=== PATIENT | male | born 1940 | race Caucasian/White ===

== ENCOUNTER → 2019-12-17 10:44 | Outpatient (BNVA) | payer MEDICARE, SELFPAY | PROVIDERS: Family Provider Nurse Practitioner; PCP Nurse Practitioner; Visit Provider Nurse Practitioner | DX: E11.9 Type 2 diabetes mellitus without complications (principal); E78.5 Hyperlipidemia, unspecified; E03.8 Other specified hypothyroidism | CPT/HCPCS: 80053; 80061; 83036; 84443; 85025 ==

== ENCOUNTER → 2019-12-20 09:42 | Outpatient (BNVA) | payer MEDICARE, SELFPAY | PROVIDERS: Family Provider Nurse Practitioner; PCP Nurse Practitioner; Visit Provider Nurse Practitioner Family | DX: J44.1 Chronic obstructive pulmonary disease with (acute) exacerbation (principal); I25.10 Atherosclerotic heart disease of native coronary artery without angina pectoris; E11.9 Type 2 diabetes mellitus without complications; M10.9 Gout, unspecified; E78.5 Hyperlipidemia, unspecified; I10 Essential (primary) hypertension; E03.8 Other specified hypothyroidism; K21.9 Gastro-esophageal reflux disease without esophagitis; J44.9 Chronic obstructive pulmonary disease, unspecified | CPT/HCPCS: 71046 ==

== ENCOUNTER → 2020-03-21 09:10 | Outpatient (BNVA) | payer MEDICARE, SELFPAY | PROVIDERS: Family Provider Nurse Practitioner; PCP Nurse Practitioner; Visit Provider Nurse Practitioner | DX: E78.5 Hyperlipidemia, unspecified (principal); E11.9 Type 2 diabetes mellitus without complications; I10 Essential (primary) hypertension; E03.8 Other specified hypothyroidism | CPT/HCPCS: 80053; 80061; 83036; 84443 ==

== ENCOUNTER → 2020-06-16 08:47 | Outpatient (BNVA) | payer MEDICARE, SELFPAY | PROVIDERS: Family Provider Nurse Practitioner; PCP Nurse Practitioner; Visit Provider Nurse Practitioner | DX: E11.59 Type 2 diabetes mellitus with other circulatory complications (principal); E03.8 Other specified hypothyroidism | CPT/HCPCS: 80053; 80061; 83036; 84443 ==

== ENCOUNTER → 2020-06-30 08:36 | Outpatient (BNVA) | payer MEDICARE, SELFPAY | PROVIDERS: Family Provider Nurse Practitioner; PCP Nurse Practitioner; Visit Provider Nurse Practitioner | DX: E87.1 Hypo-osmolality and hyponatremia (principal) | CPT/HCPCS: 80048 ==

== ENCOUNTER → 2020-07-07 08:30 | Outpatient (BNVA) | payer MEDICARE, SELFPAY | PROVIDERS: Family Provider Nurse Practitioner; PCP Nurse Practitioner; Visit Provider Nurse Practitioner | DX: E87.1 Hypo-osmolality and hyponatremia (principal) | CPT/HCPCS: 80048 ==

== ENCOUNTER → 2020-09-11 09:20 | Outpatient (BNVA) | payer MEDICARE, SELFPAY | PROVIDERS: Family Provider Nurse Practitioner; PCP Nurse Practitioner; Visit Provider Nurse Practitioner | DX: E11.59 Type 2 diabetes mellitus with other circulatory complications (principal); J43.9 Emphysema, unspecified; I10 Essential (primary) hypertension; E03.8 Other specified hypothyroidism | CPT/HCPCS: 80053; 83036 ==

== ENCOUNTER → 2020-12-05 09:09 | Outpatient (BNVA) | payer MEDICARE, SELFPAY | PROVIDERS: Family Provider Nurse Practitioner; PCP Nurse Practitioner; Visit Provider Nurse Practitioner | DX: E11.59 Type 2 diabetes mellitus with other circulatory complications (principal); E78.5 Hyperlipidemia, unspecified; E03.8 Other specified hypothyroidism; I10 Essential (primary) hypertension; J43.9 Emphysema, unspecified | CPT/HCPCS: 80053; 80061; 83036; 84443; 85025 ==

== ENCOUNTER → 2020-12-10 11:26 | Outpatient (BNVA) | payer MEDICARE, SELFPAY | PROVIDERS: Family Provider Nurse Practitioner; PCP Nurse Practitioner; Visit Provider Nurse Practitioner | DX: Z20.828 Contact with and (suspected) exposure to other viral communicable diseases (principal); E11.9 Type 2 diabetes mellitus without complications; M10.9 Gout, unspecified; E78.5 Hyperlipidemia, unspecified; I25.10 Atherosclerotic heart disease of native coronary artery without angina pectoris; K21.9 Gastro-esophageal reflux disease without esophagitis; E03.8 Other specified hypothyroidism; I10 Essential (primary) hypertension; J43.9 Emphysema, unspecified; E87.1 Hypo-osmolality and hyponatremia | CPT/HCPCS: 87635 ==

== ENCOUNTER → 2021-03-04 08:35 | Outpatient (BNVA) | payer MEDICARE, SELFPAY | PROVIDERS: Family Provider Nurse Practitioner; PCP Nurse Practitioner; Visit Provider Nurse Practitioner | DX: E11.65 Type 2 diabetes mellitus with hyperglycemia (principal); I10 Essential (primary) hypertension; E03.8 Other specified hypothyroidism; J43.9 Emphysema, unspecified | CPT/HCPCS: 80053; 80061; 83036; 84443; 85025 ==

== ENCOUNTER → 2021-03-05 09:43 | Outpatient (BNVA) | payer MEDICARE, SELFPAY | PROVIDERS: Family Provider Nurse Practitioner; PCP Nurse Practitioner; Visit Provider Nurse Practitioner | DX: J43.9 Emphysema, unspecified (principal); E11.65 Type 2 diabetes mellitus with hyperglycemia; D64.9 Anemia, unspecified; E53.8 Deficiency of other specified B group vitamins; E55.9 Vitamin D deficiency, unspecified; M25.511 Pain in right shoulder; M25.512 Pain in left shoulder; M1A.9XX0 Chronic gout, unspecified, without tophus (tophi); E78.5 Hyperlipidemia, unspecified; I25.10 Atherosclerotic heart disease of native coronary artery without angina pectoris; K21.9 Gastro-esophageal reflux disease without esophagitis; I10 Essential (primary) hypertension; E87.1 Hypo-osmolality and hyponatremia; E11.9 Type 2 diabetes mellitus without complications; E03.8 Other specified hypothyroidism; M71.9 Bursopathy, unspecified | CPT/HCPCS: 73030; 82306; 82607; 83540 ==

== ENCOUNTER → 2021-06-12 08:34 | Outpatient (BNVA) | payer MEDICARE, SELFPAY | PROVIDERS: Family Provider Nurse Practitioner; PCP Nurse Practitioner; Visit Provider Nurse Practitioner | DX: J43.9 Emphysema, unspecified (principal); E11.65 Type 2 diabetes mellitus with hyperglycemia; I10 Essential (primary) hypertension; E03.8 Other specified hypothyroidism; M1A.9XX0 Chronic gout, unspecified, without tophus (tophi); K21.9 Gastro-esophageal reflux disease without esophagitis; E87.1 Hypo-osmolality and hyponatremia; D64.9 Anemia, unspecified; I25.10 Atherosclerotic heart disease of native coronary artery without angina pectoris; E11.9 Type 2 diabetes mellitus without complications; E78.5 Hyperlipidemia, unspecified | CPT/HCPCS: 80053; 82306; 82607; 83036; 84443; 85025 ==

== ENCOUNTER → 2021-07-09 09:03 | Outpatient (BNVA) | payer MEDICARE, SELFPAY | PROVIDERS: Family Provider Nurse Practitioner; PCP Nurse Practitioner; Visit Provider Nurse Practitioner | DX: M54.5 Low back pain (principal); M25.552 Pain in left hip | CPT/HCPCS: 73502 ==

== ENCOUNTER → 2021-07-15 15:37 | Outpatient (BNVA) | payer MEDICARE, SELFPAY | PROVIDERS: Family Provider Nurse Practitioner; PCP Nurse Practitioner; Visit Provider Nurse Practitioner | DX: M54.5 Low back pain (principal) | CPT/HCPCS: 72100 ==

== ENCOUNTER → 2021-09-16 09:56 | Outpatient (BNVA) | payer MEDICARE, SELFPAY | PROVIDERS: Family Provider Nurse Practitioner; PCP Nurse Practitioner; Visit Provider Nurse Practitioner | DX: E11.65 Type 2 diabetes mellitus with hyperglycemia (principal); Z79.4 Long term (current) use of insulin; E61.1 Iron deficiency | CPT/HCPCS: 80053; 80061; 83036; 83550; 84443; 85025 ==

== ENCOUNTER → 2021-12-04 10:33 | Outpatient (BNVA) | payer MEDICARE, SELFPAY | PROVIDERS: Family Provider Nurse Practitioner; PCP Nurse Practitioner; Visit Provider Nurse Practitioner | DX: E11.65 Type 2 diabetes mellitus with hyperglycemia (principal); Z79.4 Long term (current) use of insulin | CPT/HCPCS: 80053; 83036; 85025 ==

== ENCOUNTER → 2022-01-25 13:25 | Outpatient (BNVA) | payer MEDICARE, SELFPAY | PROVIDERS: Family Provider Nurse Practitioner; PCP Nurse Practitioner; Referring Provider Nurse Practitioner; Visit Provider Urology | DX: N47.1 Phimosis (principal) | CPT/HCPCS: 81003 ==

== ENCOUNTER → 2022-03-25 10:08 | Outpatient (BNVA) | payer MEDICARE, SELFPAY | PROVIDERS: Family Provider Nurse Practitioner; PCP Nurse Practitioner; Visit Provider Nurse Practitioner | DX: E11.65 Type 2 diabetes mellitus with hyperglycemia (principal); Z79.4 Long term (current) use of insulin; J43.9 Emphysema, unspecified; M1A.9XX0 Chronic gout, unspecified, without tophus (tophi); E78.5 Hyperlipidemia, unspecified; I25.10 Atherosclerotic heart disease of native coronary artery without angina pectoris; K21.9 Gastro-esophageal reflux disease without esophagitis; E61.1 Iron deficiency; E03.8 Other specified hypothyroidism; I10 Essential (primary) hypertension | CPT/HCPCS: 80053; 80061; 81000; 82043; 83036 ==

== ENCOUNTER → 2022-04-16 08:49 | Outpatient (BNVA) | payer MEDICARE, SELFPAY | PROVIDERS: Family Provider Nurse Practitioner; PCP Nurse Practitioner; Visit Provider Nurse Practitioner | DX: J43.9 Emphysema, unspecified (principal); E11.65 Type 2 diabetes mellitus with hyperglycemia; Z79.4 Long term (current) use of insulin; I10 Essential (primary) hypertension | CPT/HCPCS: 85025 ==

== ENCOUNTER → 2022-06-14 08:21 | Outpatient (BNVA) | payer MEDICARE, SELFPAY | PROVIDERS: Family Provider Nurse Practitioner; PCP Nurse Practitioner; Visit Provider Nurse Practitioner | DX: E11.65 Type 2 diabetes mellitus with hyperglycemia (principal); E61.1 Iron deficiency; Z79.4 Long term (current) use of insulin; J43.9 Emphysema, unspecified; M1A.9XX0 Chronic gout, unspecified, without tophus (tophi); E78.5 Hyperlipidemia, unspecified; I25.10 Atherosclerotic heart disease of native coronary artery without angina pectoris; K21.9 Gastro-esophageal reflux disease without esophagitis; E03.8 Other specified hypothyroidism; I10 Essential (primary) hypertension; E87.1 Hypo-osmolality and hyponatremia | CPT/HCPCS: 80053; 80061; 83036; 83540; 84443 ==

== ENCOUNTER → 2022-09-27 11:31 | Outpatient (BNVA) | payer MEDICARE, SELFPAY | PROVIDERS: Family Provider Nurse Practitioner; PCP Nurse Practitioner; Visit Provider Nurse Practitioner | DX: E11.65 Type 2 diabetes mellitus with hyperglycemia (principal); Z79.4 Long term (current) use of insulin; J43.9 Emphysema, unspecified; M1A.9XX0 Chronic gout, unspecified, without tophus (tophi); E78.5 Hyperlipidemia, unspecified; I25.10 Atherosclerotic heart disease of native coronary artery without angina pectoris; K21.9 Gastro-esophageal reflux disease without esophagitis; E61.1 Iron deficiency; E03.8 Other specified hypothyroidism; I10 Essential (primary) hypertension; E87.1 Hypo-osmolality and hyponatremia | CPT/HCPCS: 80053; 83036 ==

== ENCOUNTER → 2022-12-24 14:22 | Outpatient (BNVA) | payer MEDICARE, SELFPAY | PROVIDERS: Family Provider Nurse Practitioner; PCP Nurse Practitioner; Visit Provider Nurse Practitioner Family | DX: R05.9 Cough, unspecified (principal); Z20.822 Contact with and (suspected) exposure to COVID-19 | CPT/HCPCS: 87400; 87426 ==

== ENCOUNTER 2022-12-29 11:32 | Inpatient (IN) | payer MEDICARE, SELFPAY ==
[2022-12-29] VITALS (13 sets, daily range): BP systolic 135–214; BP diastolic 55–98; PULSE 88–131; RESP 14–32; TEMP 36.8–37; O2SAT 92–95
--- NOTE | 2022-12-29 11:44 | XR_ITS ---
WS: [id number] PORTABLE CHEST HISTORY: sob COMPARISON: 12/20/2019 Increasing opacification and consolidation in the RIGHT lower lobe consistent with atelectasis and/or pneumonia. Additional bilateral granulomata. Normal pulmonary vasculature. No pleural effusion or pn eumothorax. Cardiac size: Normal. Mediastinum/Aorta: Mild atherosclerosis aorta. No osseous abnormality seen. XR/XR chest 1V portable [id number] IMPRESSION: RIGHT lower lobe increasing opacification. Consider atelectasis with developing pneumonia or pneumonitis.
--- NOTE | 2022-12-29 11:45 | ECG_ITS ---
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 Measurements Intervals [place] Rate: 118 P: 81 OK: 148 QRS: 62 QRSD: 72 T: 78 QT: 291 QTc: 409 Interpretive Statements SINUS TACHYCARDIA POSSIBLE LEFT ATRIAL ENLARGEMENT [-0.1mV P-WAVE IN V1/V2] EARLY REPOLARIZATION [ST ELEVATION WITH NORMALLY INFLECTED T-WAVE] Compared to ECG 05/26/2019 19:35:10 Early repolarization now present Sinus rhythm no longer present Electronically Signed On 12-29-2022 16:29:04 IT SUPPORT CONSULTANT by New Moore M.D. [id number]
--- NOTE | 2022-12-29 11:47 | W.ED.GENADLT ---
HPI - General Adult General: Chief complaint: General Medical Stated complaint: Tamra sent for heart and lung issue Time Seen by Provider: 12/29/22 11:35 Source: patient and family Mode of arrival: ambulatory Limitations: no limitations History of Present Illness: This gentleman made his way to the emergency department at the request of his primary care clinic. Patient has a known history of COPD which he uses metered-dose inhaler and nebulizers to self administer treatment at home. He also has supplemental oxygen that he uses as needed. He had developed cough and chills last week and was initiated on prednisone and antibiotics. On a recheck today they thought that he had some ankle edema so sent him to the emergency department for further evaluation. Spouse also provides collaborative history as well. She states he was chilling and having night sweats for the first couple of days but that is improved. He still having quite a bit of coughing. He states that he has been sleeping in recliner the last several days because when he lays flat he coughs. States he has been producing some sputum. No bloody sputum. He has not had any chest pain. Not had any nausea vomiting or diarrhea. He did not eat today in anticipation of having blood work done at the clinic. He states he is taking all his usual medications today. He does not have a history of heart failure or coronary disease as far as he knows. He did have a carotid endarterectomy after a stroke without deficits approximately 3 to 4 years ago. He has had Pneumovax as well as influenza vaccine and COVID vaccines. Associated symptoms: Reports dyspnea; Deny chest pain, headache(s), nausea, rash, palpitations, syncope or vomiting Review of Systems Const: Reports: fever(s), chills and body aches Eyes: Denies: change in vision (Perceives light only in the right eye is secondary to a remote accident) ENMT: Denies: throat pain, odynophagia, nasal discharge or nasal congestion Card: Denies: chest pain, palpitations, syncope or pre-syncope Resp: Reports: dyspnea, productive cough and wheezing; Denies: hemoptysis GI: Denies: abdominal pain, nausea, vomiting or diarrhea : Denies: difficulty urinating, urinary frequency or urinary hesitancy Musc: Denies: neck pain, back pain, extremity pain or extremity swelling Skin/Breast: Denies: rash or pruritus Neuro: Denies: headache(s), numbness in extremities or weakness in extremities Psych: Denies: anxiety or depression Mike/Lymph: Denies: easy bruising PFSH ED PFSH: Medical History Adult onset hypothyroidism B12 deficiency Benign hypertension Cardiovascular disease COPD (chronic obstructive pulmonary disease) Diabetes mellitus with hyperglycemia, with long-term current use of insulin Dyslipidemia GERD (gastroesophageal reflux disease) Gout, unspecified Low serum iron Phimosis Surgical History History of cataract surgery Sep.02 History of vascular surgery 05/2019 Family History Son Diabetes Father , AT 85 No problems noted. Mother , AT AGE 70 Brain tumor Social History Smoking and tobacco status: former smoker Second hand smoke exposure: No Smoking risk assessment/counseling performed?: No Alcohol intake: former Desire information about alcohol rehabilitation?: No Counseling given: No Desire information about substance/drug rehabilitation?: No Counseling given: No Adopted: No Caregiver/support person: No Lives independently: Yes Household members: spouse Housing: House Marital status: service: No Current occupational status: retired Current occupational exposures/hazards: No History of recent travel: No Current gender identity: Male Physical Exam Narrative: EXAM NARRATIVE: Elderly gentleman who appears to be alert, cooperative, speaks in complete goal-directed sentences. Const: COMMON NORMALS: no acute distress, average body habitus and patient oriented x3 GENERAL APPEARANCE: cooperative ORIENTATION/CONSCIOUSNESS: Yes awake HENMT: COMMON NORMALS: normocephalic, Normal nasal mucous membranes and turbinates present, moist oral mucous membranes and oropharynx normal HEAD & SCALP: normocephalic NOSE: Normal nasal mucous membranes and turbinates present Eye: COMMON NORMALS: conjunctivae normal CONJUNCTIVA: Yes conjunctivae normal OTHER: He has abnormal extraocular muscle function of the right eye. There is strabismus with lateral gaze. Neck/C-Spine: COMMON NORMALS: full ROM, no JVD and No carotid bruits (Surgical scar left neck) Chest: COMMONS NORMALS: normal inspection of the chest and normal palpation of entire chest wall Resp: COMMON NORMALS: normal respiratory effort EFFORT & INSPECTION: Yes able to speak in complete sentences AUSCULTATION: crackles, rhonchi and wheezes Cardio: COMMON NORMALS: no JVD, regular rate, regular rhythm and No murmurs present (Cardio) RATE: regular rate RHYTHM: regular rhythm GI: COMMON NORMALS: Normal to inspection, nondistended, normoactive bowel sounds present, Soft to palpation, non-tender and No hepatosplenomegaly present PALPATION: Yes Soft to palpation and Yes No hepatosplenomegaly present : COMMON NORMALS: Yes no CVA tenderness BLADDER/KIDNEY EXAM: Yes no CVA tenderness Back/Pelvis: COMMON NORMALS: no CVA tenderness, no thoracic nor lumbar tenderness, thoraco-lumbar ROM normal and straight leg raise negative bilaterally Extremity: COMMON NORMALS: normal to inspection, full ROM, capillary refill normal, no calf tenderness and no pedal edema Neuro: COMMON NORMALS: patient oriented x3, moves all extremities and no focal motor deficits CRANIAL NERVES: Yes CN normal except as noted Course Reevaluation(s): Reevaluation #1: Patient remained stable. Requiring oxygen at 2 L to keep his O2 sat between 91 and 93%. Repeat examination reveals some improvement in air movement but still crackles particularly right versus left. Discussed treatment options but both his curb 65 and this point scores favor hospitalization. Consultations: Consultation #1: Spoke with Dr. Olvera who agrees to place the patient in hospital. Time: 13:33 Vital Signs: Vital signs: Vital Signs Temperature 98.6 F 12/29/22 11:34 Pulse Rate 114 H 12/29/22 12:29 Respiratory Rate 24 H 12/29/22 12:29 Blood Pressure 137/68 12/29/22 12:29 Pulse Oximetry 93 12/29/22 12:29 Oxygen Delivery Me thod 12/29/22 12:29 Oxygen Flow Rate 2 12/29/22 12:29 [facility] - General Adult Medical Decision Making This patient presented to our emergency department because of persistent shortness of breath, cough, chills despite being treated with doxycycline and steroids from his outpatient clinic. His differential on presentation included possible CHF, pneumonia, ACS etc. Work-up in the emergency department essentially discovered infiltrative process in the right lower lobe consistent with community acquired pneumonia. No evidence that suggest sepsis given his lactate of 1.7 however he is tachycardic, requiring oxygen and has both ports score and curb 65 score is that put him at moderate risk and recommend possible hospitalization. We will go ahead and begin him on azithromycin and ceftriaxone and plan for admission. He does have a slight elevation in his initial troponin this is likely rate related. Does not represent ACS at this time but this will have to be trended while as an inpatient. His initial EKG did not show any ischemic changes. Medical Records I reviewed the patient's medical records. Lab Data I reviewed the patient's lab results. 12/29/22 12:03 12/29/22 12:03 Radiology Impressions Chest X-Ray 12/29/22 11:44 IMPRESSION: RIGHT lower lobe increasing opacification. Consider atelectasis with developing pneumonia or pneumonitis. Laboratory Results WBC 16.8 10^3/uL (4.0-10.0) H 12/29/22 12:03 RBC 5.20 10^6/uL (4.1-5.3) 12/29/22 12:03 Hgb 15.1 g/dL (11.7-16.6) 12/29/22 12:03 Hct 46.4 % (42.0-52.0) 12/29/22 12:03 MCV 89.2 fl (80-94) 12/29/22 12:03 MCH 29.0 pg (28.0-34.0) 12/29/22 12:03 MCHC 32.5 g/dL (30.0-36.0) 12/29/22 12:03 RDW 14.8 % (12.1-15.1) 12/29/22 12:03 Plt Count 313 10^3/cmm (130-400) 12/29/22 12:03 MPV 10.5 fL (7.4-10.4) H 12/29/22 12:03 Neut % (Auto) 89.7 % 12/29/22 12:03 Lymph % (Auto) 5.1 % 12/29/22 12:03 [place] % (Auto) 3.9 % 12/29/22 12:03 Eos % (Auto) 0.1 % 12/29/22 12:03 Baso % (Auto) 0.2 % 12/29/22 12:03 Neut # (Auto) 15.06 10^3/uL (1.8-7.7) H 12/29/22 12:03 Lymph # (Auto) 0.9 10^3/uL (0.8-4.8) 12/29/22 12:03 [place] # (Auto) 0.7 10^3/uL (0.2-0.9) 12/29/22 12:03 Eos # (Auto) 0.0 10^3/uL (0.0-0.8) 12/29/22 12:03 Baso # (Auto) 0.0 10^3/uL (0.0-0.1) 12/29/22 12:03 Nucleated RBC % (auto) 0 % 12/29/22 12:03 Nucleated RBCs # 0.0 /100WBC 12/29/22 12:03 Sodium 132 mmol/L (136-145) L 12/29/22 12:03 Potassium 4.4 mmol/L (3.5-5.1) 12/29/22 12:03 Chloride 91 mmol/L (98-107) L 12/29/22 12:03 Carbon Dioxide 25 mmol/L (22-29) 12/29/22 12:03 Anion Gap 20.4 (5-19) H 12/29/22 12:03 BUN 26 mg/dL (8-23) H 12/29/22 12:03 Creatinine 0.9 mg/dL (0.7-1.2) 12/29/22 12:03 GFR Calculation Not Reportable 12/29/22 12:03 Glucose 201 mg/dL (65-115) H 12/29/22 12:03 Calculated Osmolality 284 mOsm/kg (285-295) L 12/29/22 12:03 Lactate 1.7 mmol/L (0.5-2.2) 12/29/22 12:03 Calcium 9.6 mg/dL (8.5-10.5) 12/29/22 12:03 Total Bilirubin 0.7 mg/dL (0.15-1.2) 12/29/22 12:03 AST 15 U/L (0-40) 12/29/22 12:03 ALT 17 U/L (0-41) 12/29/22 12:03 Alkaline Phosphatase 87 U/L (40-130) 12/29/22 12:03 Troponin T Baseline 32 ng/L (0-15) H 12/29/22 12:03 NT-Pro-B Natriuret Pep 264 pg/mL (0-450) 12/29/22 12:03 Total Protein 7.0 g/dL (6.6-8.7) 12/29/22 12:03 Albumin 4.2 g/dL (3.5-5.2) 12/29/22 12:03 Globulin 2.8 g/dL (1.3-4.6) 12/29/22 12:03 Influenza Type A Ag negative (Negative) 12/29/22 12:03 Influenza Type B Ag negative (Negative) 12/29/22 12:03 SARS-CoV-2 Ag (Rapid) negative (Negative) 12/29/22 12:03 EKG Data EKG 1: I personally reviewed and interpreted this EKG as follows: Interpretation: Contemporaneous review of resting EKG reveals a ventricular rate of 118 bpm. Consistent with sinus tachycardia. Normal MT interval, QRS duration, corrected QT interval. Normal axis. No acute ST-T wave changes noted. Computer generated interpretation: Chest X-Ray 12/29/22 11:44 IMPRESSION: RIGHT lower lobe increasing opacification. Consider atelectasis with developing pneumonia or pneumonitis. Discharge Plan Discharge Patient Disposition: Admitted As Inpatient Clinical Impression: Right lower lobe pneumonia, COPD (chronic obstructive pulmonary disease), Elevated troponin Condition: Stable Prescriptions: No Action ergocalciferol (vitamin D2) 50 mcg (2,000 unit) capsule 50 mcg PO DAILY multivitamin Tablet 1 tab PO DAILY Vision Formula (with lutein) 1,000 unit-200 mg-60 unit-2 mg tablet 1 tab PO DAILY Rx Instructions: administer after a meal albuterol sulfate [Ventolin HFA] 90 mcg/actuation HFA aerosol inhaler 2 puff INHALATION Q4H PRN (Reason: shortness of breath or wheezing) 30 Days Qty: 6.7 2RF allopurinol 300 mg tablet 300 mg PO QDAY 30 Days Qty: 30 2RF aspirin [Adult Low Dose Aspirin] 81 mg tablet,delayed release (DR/EC) 81 mg PO QDAY 30 Days Qty: 30 2RF atorvastatin 20 mg tablet 20 mg PO QDAY 30 Days Qty: 30 2RF clopidogrel [Plavix] 75 mg tablet 75 mg PO QDAY 30 Days Qty: 30 2RF Jardiance 10 mg tablet 10 mg PO DAILY Qty: 30 2RF famotidine [Pepcid] 40 mg tablet 40 mg PO BID 30 Days Qty: 60 2RF Trelegy Ellipta 100-62.5-25 mcg blister with device 1 inh INHALATION QDAY 30 Days Qty: 28 2RF glipizide 2.5 mg tablet extended release 24hr 2.5 mg PO QDAY 30 Days Qty: 30 2RF guaifenesin [Mucinex] 600 mg tablet extended release 12hr 600 mg PO BID 30 Days Qty: 60 2RF levothyroxine [Synthroid] 75 mcg tablet 75 mcg PO QDAY 30 Days Qty: 30 2RF losartan 100 mg tablet 100 mg PO QDAY 30 Days Qty: 30 2RF metformin 500 mg tablet 500 mg PO BID 30 Days Qty: 60 2RF Daliresp 250 mcg tablet 250 mcg PO DAILY Qty: 30 2RF albuterol sulfate 2.5 mg /3 mL (0.083 %) solution for nebulization 2.5 mg INHALATION Q4H PRN (Reason: shortness of breath or wheezing) 30 Days Qty: 75 2RF (DME) Disp Neb Kit W/mouthpc T& 7 Tubing See Rx Instructions .Route .MEDSUPPLY Qty: 1 2RF Dose Instruction: USE DIRECTED Rx Instructions: USE DIRECTED ferrous gluconate 324 mg (38 mg iron) tablet 324 mg PO BID Qty: 60 2RF Vitamin B-12 2,500 mcg Tablet, Sublingual 2,500 mcg SUBLINGUAL DAILY doxycycline hyclate 100 mg capsule 100 mg PO BID prednisone 20 mg tablet 20 mg PO DAILY Referrals: Pete Barboza, WELLNESS PROGRAM ADMINISTRATOR-C [Primary Care Provider] - Coding Level of Care Code ED Healthcare Specialist for Chg Fwd Exam Comprehensive
[2022-12-29] MEDS: ipratropium 0.5 mg/2.5 mL Neb INHALATION (11:53)
[2022-12-29] MEDS: albuterol 2.5 mg/3 mL Neb INHALATION ×3 (11:53→20:40)
[2022-12-29 12:22] LABS: Basophils % 0.2 %; Eosinophils % 0.1 %; Hematocrit 46.4 % (42.0-52.0); Hemoglobin 15.1 g/dL (11.7-16.6); Lymphocytes # 0.9 10^3/uL (0.8-4.8); Lymphocytes % 5.1 %; Mean Corpuscular HGB Conc 32.5 g/dL (30.0-36.0); Mean Corpuscular Volume 89.2 fl (80-94); Mean Platelet Volume 10.5 fL (7.4-10.4); Monocytes # 0.7 10^3/uL (0.2-0.9); Monocytes % 3.9 %; Neutrophils # 15.06 10^3/uL (1.8-7.7); Neutrophils % 89.7 %; Nucleated Red Blood Cells % 0 %; Platelet Count 313 10^3/cmm (130-400); Red Cell Distribution Width 14.8 % (12.1-15.1); White Blood Count 16.8 10^3/uL (4.0-10.0)
[2022-12-29 12:30] LABS: Influenza A by IFA negative (Negative); Influenza B by IFA negative (Negative); SARS Covid-2 Antigen negative (Negative)
[2022-12-29 12:42] LABS: Alanine Aminotransferase 17 U/L (0-41); Albumin Level 4.2 g/dL (3.5-5.2); Alkaline Phosphatase 87 U/L (40-130); Anion Gap 20.4 (5-19); Aspartate Amino Transferase 15 U/L (0-40); Blood Urea Nitrogen 26 mg/dL (8-23); Calcium 9.6 mg/dL (8.5-10.5); Carbon Dioxide 25 mmol/L (22-29); Chloride 91 mmol/L (98-107); Globulin 2.8 g/dL (1.3-4.6); Glucose 201 mg/dL (65-115); NT Pro B Type Natriuretic Pept 264 pg/mL (0-450); Osmolality Calculated 284 mOsm/kg (285-295); Potassium 4.4 mmol/L (3.5-5.1); Sodium 132 mmol/L (136-145); Total Bilirubin 0.7 mg/dL (0.15-1.2)
[2022-12-29 12:45] LABS: Troponin(5th) Baseline 32 ng/L (0-15)
[2022-12-29 13:14] LABS: Lactate (Lactic Acid level) 1.7 mmol/L (0.5-2.2)
[2022-12-29] MEDS: lactated ringers 1,000 ML 125 ML IV (13:19)
--- NOTE | 2022-12-29 13:51 | P.HP_ITS ---
Providers/Chief Complaint Primary Care Provider: OTIS Mead Chief Complaint: Tamra sent for heart and lung issue History of Present Illness Dl Ness is a 82 year old male with past medical history of hypothyroidism, B12 deficiency, hypertension, COPD, diabetes mellitus insulin-dependent, dyslipidemia, GERD, gout presented to the hospital with complaint of cough and shortness of breath and being sent by his primary care doctor. He states he saw his PCP on Tuesday with similar complaints and was given doxycycline and a 20 mg prednisone course which he has been taking. However he starts to cough and cannot catch his breath at the end. He is on 2 L of oxygen at home and requiring 2 L here in the ER. His provides additional history. She states that he was having chills and night sweats for the first couple of days without improved. He has also been producing some sputum. He does have COPD exacerbations and usually gets better however this time he is sicker. He takes Trelegy at home. He does have a history of carotid endarterectomy after her stroke without any major deficits. He has been with vaccinated for COVID influenza and pneumonia. ED course: On arrival blood pressure 137/60, respiratory 24, pulse 114, temperature 98.6 saturating 93% on 2 L nasal cannula. Lactic acid 1.7 WBC 16.8. Slightly tachycardic. Chest x-ray shows right lower lobe increasing opacification consider atelectasis with developing pneumonia or pneumonitis. Patient given 1 time dose of ceftriaxone azithromycin. Admission recommended at this time. Data troponin negative, BNP 264 Medications/Allergies Home Medications Medication Instructions Recorded Confirmed Last Taken Type Disp Neb Kit W/mouthpc T& 7 Tubing #1 ea 01/08/21 12/29/22 Unknown Rx ergocalciferol (vitamin D2) 50 mcg 50 mcg PO DAILY 01/25/22 12/29/22 12/29/22 Hi story (2,000 unit) capsule multivitamin 1 tab PO DAILY 01/25/22 12/29/22 12/29/22 History vit A 300 mcg-C 200 mg-E 27 1 tab PO DAILY 01/25/22 12/29/22 12/29/22 History mg-lutein 2 mg and minerals tablet (Vision Formula (with lutein)) albuterol sulfate 90 mcg/actuation 2 puff inhalation Q4H PRN 09/27/22 12/29/22 Unknown Rx aerosol inhaler (Ventolin HFA) shortness of breath or wheezing 30 days #6.7 grams allopurinol 300 mg tablet 300 mg PO QDAY 30 days #30 tabs 09/27/22 12/29/22 12/29/22 Rx aspirin 81 mg tablet,delayed 81 mg PO QDAY 30 days #30 tabs 09/27/22 12/29/22 12/29/22 Rx release (Adult Low Dose Aspirin) atorvastatin 20 mg tablet 20 mg PO QDAY 30 days #30 tabs 09/27/22 12/29/22 12/29/22 Rx clopidogrel 75 mg tablet (Plavix) 75 mg PO QDAY 30 days #30 tabs 09/27/22 12/29/22 12/29/22 Rx empagliflozin 10 mg tablet 10 mg PO DAILY #30 tabs 09/27/22 12/29/22 12/29/22 Rx (Jardiance) famotidine 40 mg tablet (Pepcid) 40 mg PO BID 30 days #60 tabs 09/27/22 12/29/22 12/29/22 Rx fluticasone fur. 100 mcg-umeclid 1 inh inhalation QDAY 30 days #28 09/27/22 12/29/22 12/29/22 Rx 62.5 mcg-vilant 25 mcg ea inhalat.powder (Trelegy Ellipta) glipizide 2.5 mg tablet, extended 2.5 mg PO QDAY 30 days #30 tabs 09/27/22 12/29/22 12/29/22 Rx release 24 hr guaifenesin 600 mg tablet, 600 mg PO BID 30 days #60 tabs 09/27/2223 12/29/22 Rx extended release 12 hr (Mucinex) levothyroxine 75 mcg tablet 75 mcg PO QDAY 30 days #30 tabs 09/27/22 12/29/22 12/29/22 Rx (Synthroid) losartan 100 mg tablet 100 mg PO QDAY 30 days #30 tabs 09/27/22 12/29/22 12/29/22 Rx metformin 500 mg tablet 500 mg PO BID 30 days #60 tabs 09/27/2223 12/29/22 Rx roflumilast 250 mcg tablet 250 mcg PO DAILY #30 tabs 1012/29/22 12/29/22 Rx (Daliresp) ferrous gluconate 324 mg (38 mg 324 mg PO BID #60 tabs 11/03/22 12/29/22 12/29/22 Rx iron) tablet albuterol sulfate 2.5 mg/3 mL 2.5 mg (3 mL) inhalation Q4H PRN 11/18/22 12/29/22 Unknown Rx (0.083 %) solution for nebulization shortness of breath or wheezing 30 days #75 mL cyanocobalamin (vitamin B-12) 2,500 mcg sublingual DAILY 12/29/22 12/29/22 12/29/22 History 2,500 mcg sublingual tablet (Vitamin B-12) doxycycline hyclate 100 mg capsule 100 mg PO BID 12/29/22 12/29/22 12/29/22 History prednisone 20 mg tablet 20 mg PO DAILY 12/29/22 12/29/22 12/29/22 History Allergies Allergy/AdvReac Type Severity Reaction Status Date / Time sodium chloride Allergy ADR-Vomitin Verified 12/29/22 14:05 g PFSH Acute PFSH: Medical History Adult onset hypothyroidism B12 deficiency Benign hypertension Cardiovascular disease COPD (chronic obstructive pulmonary disease) Diabetes mellitus with hyperglycemia, with long-term current use of insulin Dyslipidemia GERD (gastroesophageal reflux disease) Gout, unspecified Low serum iron Phimosis Surgical History History of cataract surgery Sep.02 History of vascular surgery 05/2019 Family History Son Diabetes Father , AT 85 No problems noted. Mother , AT AGE 70 Brain tumor Social History Smoking and tobacco status: former smoker Second hand smoke exposure: No Smoking risk assessment/counseling performed?: No Alcohol intake: former Desire information about alcohol rehabilitation?: No Counseling given: No Desire information about substance/drug rehabilitation?: No Counseling given: No Adopted: No Caregiver/support person: No Lives independently: Yes Household members: spouse Housing: House Marital status: service: No Current occupational status: retired Current occupational exposures/hazards: No History of recent travel: No Current gender identity: Male Vitals/I&O/Wt Last Vital Signs Temp 98.6 F 12/29/22 11:34 Pulse 114 H 12/29/22 12:29 Resp 24 H 12/29/22 12:29 BP 137/68 12/29/22 12:29 Pulse Ox 93 12/29/22 12:29 O2 Del Method 12/29/22 12:29 O2 Flow Rate 2 12/29/22 12:29 Physical Exam Narrative: General: Alert oriented x3, patient seen sitting up in bed until her nasal cannula. No conversationalist and no acute respiratory distress. HEENT: Normocephalic, atraumatic, EOMI, Cardio: Regular rate rhythm, normal S1-S2 Respiratory: Rhonchi throughout right side lung lazo, left side much more clear to auscultation. Diminished at bases. GI: Abdomen soft, nontender, nondistended, bowel sounds + Extremities: Trace to 1+ mild generalized edema bilateral lower extremities. Data 12/29/22 12:03 12/29/22 12:03 Micro: Microbiology 12/29/22 13:11 Blood Culture - Preliminary Blood SPECIMEN COLLECTED 12/29/22 13:11 Blood Culture - Preliminary Blood SPECIMEN COLLECTED A&P Assessment and plan (1) Right lower lobe pneumonia: (2) COPD (chronic obstructive pulmonary disease): (3) Diabetes mellitus with hyperglycemia, with long-term current use of insulin: Qualifiers: Diabetes mellitus type: type 2 Qualified Code(s): E11.65 - Type 2 diabetes mellitus with hyperglycemia; Z79.4 - terminal makeup operator (current) use of insulin (4) Dyslipidemia: (5) Benign hypertension: (6) Adult onset hypothyroidism: (7) GERD (gastroesophageal reflux disease): Qualifiers: Esophagitis presence: without esophagitis Qualified Code(s): K21.9 - Gastro-esophageal reflux disease without esophagitis (8) COPD (chronic obstructive pulmonary disease): Qualifiers: COPD type: emphysema Emphysema type: unspecified Qualified Code(s): J43.9 - Emphysema, unspecified Plan #Right lower lobe pneumonia #COPD #Hypothyroidism #Hrj-tjxyibr-ezjirzaqi diabetes mellitus #Hypertension #Dyslipidemia #GERD ? Continue ceftriaxone, azithromycin ? Check sputum gram stain and culture ? Check MRSA nares ? Continue 120 prednisone daily to complete course. ? Patient would like to continue using Trelegy inhaler. ? Albuterol 4 times daily scheduled nebulizer treatments, Mucinex ? Continue aspirin and Plavix atorvastatin, allopurinol, famotidine, iron ? Hold glipizide, Jardiance, ? Continue Daliresp, losartan, levothyroxine ? Home oxygen evaluation and discharge Full code Due to prophylaxis: Heparin subcu twice daily Attestations Medical Necessity Statement*: Greater than 2 minutes today for management of pneumonia. Coding Level of Care Code Acute Code for g Fwd Diagnoses Right lower lobe pneumonia J18.9 COPD (chronic obstructive pulmonary disease) J44.9 Diabetes mellitus with hyperglycemia, with long-term current use of insulin E11.65; Z79.4 Diabetes mellitus type: type 2 Dyslipidemia E78.5 Benign hypertension I10 Adult onset hypothyroidism E03.8 GERD (gastroesophageal reflux disease) K21.9 Esophagitis presence: without esophagitis COPD (chronic obstructive pulmonary disease) J43.9 COPD type: emphysema Emphysema type: unspecified
--- NOTE | 2022-12-29 13:57 | ECG_ITS ---
[facility] Test Date: 2022-12-29 Pat Name: Dl Ness Department: Room: Gender: Male Training And Quality Manager: : 1940 Requested By: Jasvir Fitzgerald Order Number: [id number] Olman MD: New Moore M.D. Measurements Intervals [place] Rate: 110 P: 78 MA: 134 QRS: 67 QRSD: 86 T: 76 QT: 320 QTc: 435 Interpretive Statements SINUS TACHYCARDIA WITH OCCASIONAL VENTRICULAR PREMATURE COMPLEXES Compared to ECG 12/29/2022 12:00:25 Ventricular premature complex(es) now present Early repolarization no longer present Electronically Signed On 12-29-2022 16:33:01 COVERER by New Moore M.D. [email or web address]
[2022-12-29] MEDS: cefTRIAXone 2,000 MG in sodium chloride 0.9% (plus) 50 ML 100 MG IV (14:35)
[2022-12-29 14:36] LABS: Troponin 5 2HR 28.32 ng/L (0-15)
[2022-12-29 14:37] LABS: Troponin 5 2HR Delta -3.68 ABS# (0-10)
[2022-12-29] MEDS: heparin 5,000 unit/mL INJ 1 mL 5000 UNIT SUBCUT (14:51)
[2022-12-29 15:01] LABS: Procalcitonin 0.13 ng/mL (0-0.5)
[2022-12-29 15:02] LABS: Thyroid Stimulating Hormone 0.46 uIU/mL (0.27-4.20)
[2022-12-29] MEDS: azithromycin 500 MG in sodium chloride 0.9% 250 ML 250 MG IV (15:29)
--- NOTE | 2022-12-29 17:00 | ECG_ITS ---
Test Date: 2022-12-29 Pat Name: Dl Ness Department: Room: 257 Gender: Male Line Walker: : 1940 Requested By: Jasvir Fitzgerald Order Number: [id number] Olman MD: New Moore M.D. Measurements Intervals [place] Rate: 123 P: 75 ND: 140 QRS: 56 QRSD: 83 T: 75 QT: 296 QTc: 425 Interpretive Statements SINUS TACHYCARDIA Compared to ECG 12/29/2022 13:57:42 Ventricular premature complex(es) no longer present Electronically Signed On 12-29-2022 17:42:40 DEBONING TEAM LEADER by New Moore M.D. [id number]
[2022-12-29 17:33] LABS: Glucose Point of Care 176 mg/dL (70-110)
[2022-12-29] MEDS: famotidine 20 mg Tablet 40 MG PO (18:02)
[2022-12-29] MEDS: guaiFENesin 600 mg Tablet PO (18:03)
[2022-12-29] MEDS: ferrous gluconate 324 mg Tablet PO (18:03)
[2022-12-29 18:33] LABS: Troponin 5 6HR 29.43 ng/L (0-15); Troponin 5 6HR Delta -2.57 ng/L (0-12)
[2022-12-29 20:57] LABS: Glucose Point of Care 177 mg/dL (70-110)
[2022-12-29] MEDS: insulin lispro 100 unit/1 mL SUBCUT (21:39)
[2022-12-30] VITALS (15 sets, daily range): BP systolic 114–165; BP diastolic 64–77; PULSE 85–113; RESP 14–23; TEMP 36.3–36.8; O2SAT 89–96
[2022-12-30] MEDS: heparin 5,000 unit/mL INJ 1 mL 5000 UNIT SUBCUT ×2 (01:58→15:01)
[2022-12-30 05:58] LABS: Basophils % 0.1 %; Eosinophils # 0.1 10^3/uL (0.0-0.8); Eosinophils % 0.6 %; Hemoglobin 13.2 g/dL (11.7-16.6); Lymphocytes % 19.2 %; Mean Corpuscular HGB Conc 31.4 g/dL (30.0-36.0); Mean Corpuscular Hemoglobin 28.7 pg (28.0-34.0); Mean Corpuscular Volume 91.3 fl (80-94); Mean Platelet Volume 10.5 fL (7.4-10.4); Monocytes # 0.8 10^3/uL (0.2-0.9); Monocytes % 7.6 %; Neutrophils % 70.7 %; Nucleated Red Blood Cells % 0 %; Platelet Count 270 10^3/cmm (130-400); White Blood Count 10.5 10^3/uL (4.0-10.0)
[2022-12-30 06:22] LABS: Anion Gap 17.6 (5-19); Blood Urea Nitrogen 23 mg/dL (8-23); Calcium 8.8 mg/dL (8.5-10.5); Carbon Dioxide 27 mmol/L (22-29); Chloride 98 mmol/L (98-107); Glucose 111 mg/dL (65-115); Magnesium 1.6 mg/dL (1.7-2.3); Osmolality Calculated 292 mOsm/kg (285-295); Potassium 3.6 mmol/L (3.5-5.1); Sodium 139 mmol/L (136-145)
[2022-12-30 06:40] LABS: Glucose Point of Care 108 mg/dL (70-110)
[2022-12-30] MEDS: albuterol 2.5 mg/3 mL Neb INHALATION ×4 (07:48→21:34)
[2022-12-30] MEDS: cefTRIAXone 1,000 MG in sodium chloride 0.9% (plus) 50 ML 100 MG IV (08:00)
[2022-12-30] MEDS: clopidogrel 75 mg Tablet PO (08:06)
[2022-12-30] MEDS: roflumilast 500 mcg Tablet 250 MCG PO (08:06)
[2022-12-30] MEDS: guaiFENesin 600 mg Tablet PO ×2 (08:06→17:32)
[2022-12-30] MEDS: multivitamin therapeutic Tablet 1 TAB PO (08:07)
[2022-12-30] MEDS: aspirin 81 mg EC Tablet PO (08:07)
[2022-12-30] MEDS: predniSONE 20 mg Tablet PO (08:07)
[2022-12-30] MEDS: atorvastatin 40 mg Tablet 20 MG PO (08:07)
[2022-12-30] MEDS: ferrous gluconate 324 mg Tablet PO ×2 (08:07→17:32)
[2022-12-30] MEDS: famotidine 20 mg Tablet 40 MG PO ×2 (08:07→17:32)
[2022-12-30] MEDS: allopurinol 300 mg Tablet PO (08:07)
[2022-12-30] MEDS: levothyroxine 75 mcg Tablet PO (08:07)
[2022-12-30] MEDS: losartan 50 mg Tablet 100 MG PO (08:13)
[2022-12-30] MEDS: cyanocobalamin 1,000 mcg Tablet 2500 MCG PO (08:14)
--- NOTE | 2022-12-30 08:21 | PM.PN ---
Subjective Subjective: seen today pt feeling slightly better Vitals/I&O/Wt Last Vital Signs Temp 97.3 F L 12/30/22 08:00 Pulse 106 H 12/30/22 08:00 Resp 18 12/30/22 08:00 BP 138/77 12/30/22 08:13 Pulse Ox 92 12/30/22 08:00 O2 Del Method 12/30/22 08:00 O2 Flow Rate 1 12/30/22 07:54 12/29/22 12/30/22 12/30/22 22:59 06:59 14:59 Intake Total 300 / 431.25 868.75 / 1300.00 Balance 300 / 431.25 868.75 / 1300.00 Weight last 48 hrs Weight 70.534 kg Physical Exam Narrative: General: Alert oriented x3, patient seen sitting up in bed until her nasal cannula. No conversationalist and no acute respiratory distress. HEENT: Normocephalic, atraumatic, EOMI, Cardio: Regular rate rhythm, normal S1-S2 Respiratory: Rhonchi throughout right side lung lazo, left side much more clear to auscultation. Diminished at bases. GI: Abdomen soft, nontender, nondistended, bowel sounds + Extremities: Trace to 1+ mild generalized edema bilateral lower extremities. 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 Continue ceftriaxone, azithromycin ? Check sputum gram stain and culture ? Check MRSA nares ? Continue 120 prednisone daily to complete course. ? Patient would like to continue using Trelegy inhaler. ? Albuterol 4 times daily scheduled nebulizer treatments, Mucinex ? Continue aspirin and Plavix atorvastatin, allopurinol, famotidine, iron ? Hold glipizide, Jardiance, ? Continue Daliresp, losartan, levothyroxine ? Home oxygen evaluation at discharge Plan for dc in AM hoping he improves more. Full code Due to prophylaxis: Heparin subcu twice daily Attestations Medical Necessity Statement*: Greater than 2 midnight stay for management of pneumonia. Possible dc in AM Coding Level of Care Code Acute Code for Chg Fwd History Problem Focused Exam Problem Focused Medical Decision Making Straight Forward Diagnoses Right lower lobe pneumonia J18.9 COPD (chronic obstructive pulmonary disease) J44.9 Diabetes mellitus with hyperglycemia, with long-term current use of insulin E11.65; Z79.4 Diabetes mellitus type: type 2 Dyslipidemia E78.5 Benign hypertension I10 Adult onset hypothyroidism E03.8 GERD (gastroesophageal reflux disease) K21.9 Esophagitis presence: without esophagitis COPD (chronic obstructive pulmonary disease) J43.9 COPD type: emphysema Emphysema type: unspecified Time Spent (min) 15
[2022-12-30 12:15] LABS: Glucose Point of Care 262 mg/dL (70-110)
[2022-12-30] MEDS: magnesium sulfate premix 2 GM/50 ML PIGGYBACK IV (12:41)
[2022-12-30] MEDS: insulin lispro 100 unit/1 mL SUBCUT ×3 (12:41→21:23)
[2022-12-30] MEDS: azithromycin 500 MG in sodium chloride 0.9% 250 ML 250 MG IV (14:58)
[2022-12-30 16:47] LABS: Glucose Point of Care 289 mg/dL (70-110)
[2022-12-30 20:28] LABS: Glucose Point of Care 219 mg/dL (70-110)
[2022-12-31] VITALS (9 sets, daily range): BP systolic 122–146; BP diastolic 66–67; PULSE 78–122; RESP 16–22; TEMP 36.4–36.5; O2SAT 87–98
[2022-12-31] MEDS: heparin 5,000 unit/mL INJ 1 mL 5000 UNIT SUBCUT (03:02)
[2022-12-31 05:35] LABS: Basophils % 0.2 %; Eosinophils # 0.1 10^3/uL (0.0-0.8); Eosinophils % 0.7 %; Hematocrit 42.8 % (42.0-52.0); Hemoglobin 13.5 g/dL (11.7-16.6); Lymphocytes # 2.1 10^3/uL (0.8-4.8); Lymphocytes % 20.8 %; Mean Corpuscular HGB Conc 31.5 g/dL (30.0-36.0); Mean Corpuscular Hemoglobin 28.8 pg (28.0-34.0); Mean Corpuscular Volume 91.5 fl (80-94); Mean Platelet Volume 10.1 fL (7.4-10.4); Monocytes # 0.7 10^3/uL (0.2-0.9); Monocytes % 6.7 %; Nucleated Red Blood Cells % 0 %; Platelet Count 294 10^3/cmm (130-400); Red Blood Count 4.68 10^6/uL (4.1-5.3)
[2022-12-31] MEDS: cefTRIAXone 1,000 MG in sodium chloride 0.9% (plus) 50 ML 100 MG IV (06:35)
[2022-12-31 06:50] LABS: Glucose Point of Care 130 mg/dL (70-110)
[2022-12-31] MEDS: albuterol 2.5 mg/3 mL Neb INHALATION (07:51)
--- NOTE | 2022-12-31 08:24 | P.DS_ITS ---
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 (4) Dyslipidemia: Status: Chronic (5) Benign hypertension: Status: Chronic (6) Adult onset hypothyroidism: Status: Chronic (7) GERD (gastroesophageal reflux disease): Status: Chronic Qualifiers: Esophagitis presence: without esophagitis Qualified Code(s): K21.9 - Gastro-esophageal reflux disease without esophagitis (8) COPD (chronic obstructive pulmonary disease): Status: Chronic Qualifiers: COPD type: emphysema Emphysema type: unspecified Qualified Code(s): J43.9 - Emphysema, unspecified Reason for Visit Reason for Visit: Tamra sent for heart and lung issue Brief History: Dl Ness is a 82 year old male with past medical history of hypothyroidism, B12 deficiency, hypertension, COPD, diabetes mellitus insulin-dependent, dyslipidemia, GERD, gout presented to the hospital with complaint of cough and shortness of breath and being sent by his primary care doctor.? He states he saw his PCP on Tuesday with similar complaints and was given doxycycline and a 20 mg prednisone course which he has been taking.? However he starts to cough and cannot catch his breath at the end.? He is on 2 L of oxygen at home and requiring 2 L here in the ER.? His provides additional history.? She states that he was having chills and night sweats for the first couple of days without improved.? He has also been producing some sputum.? He does have COPD exacerbations and usually gets better however this time he is sicker.? He takes Trelegy at home.? He does have a history of carotid endarterectomy after her stroke without any major deficits.? He has been with vaccinated for COVID in fluenza and pneumonia. ED course: On arrival blood pressure 137/60, respiratory 24, pulse 114, temperature 98.6 saturating 93% on 2 L nasal cannula.? Lactic acid 1.7 WBC 16.8.? Slightly tachycardic.? Chest x-ray shows right lower lobe increasing opacification consider atelectasis with developing pneumonia or pneumonitis.? Patient given 1 time dose of ceftriaxone azithromycin.? Admission recommended at this time.? Data troponin negative, BNP 264 Hospital Course Hospital Course Patient was admitted for community-acquired pneumonia. He remains on IV antibiotics during hospital stay. Much better at discharge. 93% saturating on room air at rest. Requires 2 L oxygen at discharge. That is his home oxygen as well. Will be discharged home on Augmentin for another 8 days to complete 10- day course. Follow-up with primary care discharge. Physical Exam Narrative: General: Alert oriented x3, no acute distress.. HEENT: Normocephalic, atraumatic, EOMI, Cardio: Regular rate rhythm, normal S1-S2 Respiratory: Clear to auscultation bilaterally diminished at bases. GI: Abdomen soft, nontender, nondistended, bowel sounds + Extremities: Trace generalized edema bilateral lower extremities. Discharge Data Studies Completed and Pending Completed Studies During Hospitalization Category Date Time Status XR chest 1V portable [id number] Stat Exams 12/29/22 11:44 Completed Pending at discharge Category Date Time Status Blood Culture Stat Lab 12/29/22 13:11 Results Sputum Culture and Gram Stain Stat Lab 12/29/22 17:31 Results Radiology Impressions Chest X-Ray 12/29/22 11:44 IMPRESSION: RIGHT lower lobe increasing opacification. Consider atelectasis with developing pneumonia or pneumonitis. Laboratory Results WBC 10.0 10^3/uL (4.0-10.0) 12/31/22 04:53 RBC 4.68 10^6/uL (4.1-5.3) 12/31/22 04:53 Hgb 13.5 g/dL (11.7-16.6) 12/31/22 04:53 Hct 42.8 % (42.0-52.0) 12/31/22 04:53 MCV 91.5 fl (80-94) 12/31/22 04:53 MCH 28.8 pg (28.0-34.0) 12/31/22 04:53 MCHC 31.5 g/dL (30.0-36.0) 12/31/22 04:53 RDW 15.0 % (12.1-15.1) 12/31/22 04:53 Plt Count 294 10^3/cmm (130-400) 12/31/22 04:53 MPV 10.1 fL (7.4-10.4) 12/31/22 04:53 Neut % (Auto) 67.0 % 12/31/22 04:53 Lymph % (Auto) 20.8 % 12/31/22 04:53 [place] % (Auto) 6.7 % 12/31/22 04:53 Eos % (Auto) 0.7 % 12/31/22 04:53 Baso % (Auto) 0.2 % 12/31/22 04:53 Neut # (Auto) 6.70 10^3/uL (1.8-7.7) 12/31/22 04:53 Lymph # (Auto) 2.1 10^3/uL (0.8-4.8) 12/31/22 04:53 [place] # (Auto) 0.7 10^3/uL (0.2-0.9) 12/31/22 04:53 Eos # (Auto) 0.1 10^3/uL (0.0-0.8) 12/31/22 04:53 Baso # (Auto) 0.0 10^3/uL (0.0-0.1) 12/31/22 04:53 Nucleated RBC % (auto) 0 % 12/31/22 04:53 Nucleated RBCs # 0.0 /100WBC 12/31/22 04:53 Sodium 139 mmol/L (136-145) 12/30/22 05:03 Potassium 3.6 mmol/L (3.5-5.1) 12/30/22 05:03 Chloride 98 mmol/L (98-107) 12/30/22 05:03 Carbon Dioxide 27 mmol/L (22-29) 12/30/22 05:03 Anion Gap 17.6 (5-19) 12/30/22 05:03 BUN 23 mg/dL (8-23) 12/30/22 05:03 Creatinine 0.9 mg/dL (0.7-1.2) 12/30/22 05:03 GFR Calculation Not Reportable 12/30/22 05:03 Glucose 111 mg/dL (65-115) 12/30/22 05:03 POC Glucose 130 mg/dL (70-110) H 12/31/22 06:19 Calculated Osmolality 292 mOsm/kg (285-295) 12/30/22 05:03 Lactate 1.7 mmol/L (0.5-2.2) 12/29/22 12:03 Calcium 8.8 mg/dL (8.5-10.5) 12/30/22 05:03 Magnesium 1.6 mg/dL (1.7-2.3) L 12/30/22 05:03 Total Bilirubin 0.7 mg/dL (0.15-1.2) 12/29/22 12:03 AST 15 U/L (0-40) 12/29/22 12:03 ALT 17 U/L (0-41) 12/29/22 12:03 Alkaline Phosphatase 87 U/L (40-130) 12/29/22 12:03 Troponin T Baseline 32 ng/L (0-15) H 12/29/22 12:03 Troponin T 120 Minute 28.32 ng/L (0-15) H 12/29/22 14:08 Delta Troponin T -3.68 ABS# (0-10) L 12/29/22 14:08 Troponin T Hi Sens 6Hr 29.43 ng/L (0-15) H 12/29/22 18:10 Troponin T Hi Sens 6Hr Delta -2.57 ng/L (0-12) L 12/29/22 18:10 NT-Pro-B Natriuret Pep 264 pg/mL (0-450) 12/29/22 12:03 Total Protein 7.0 g/dL (6.6-8.7) 12/29/22 12:03 Albumin 4.2 g/dL (3.5-5.2) 12/29/22 12:03 Globulin 2.8 g/dL (1.3-4.6) 12/29/22 12:03 Procalcitonin 0.13 ng/mL (0-0.5) 12/29/22 12:17 TSH 0.46 uIU/mL (0.27-4.20) 12/29/22 12:17 Influenza Type A Ag negative (Negative) 12/29/22 12:03 Influenza Type B Ag negative (Negative) 12/29/22 12:03 SARS-CoV-2 Ag (Rapid) negative (Negative) 12/29/22 12:03 Vitals Last Vital Signs Temp 97.7 F 12/31/22 08:00 Pulse 86 12/31/22 08:00 Resp 16 12/31/22 08:00 BP 122/66 12/31/22 04:00 Pulse Ox 95 12/31/22 08:00 O2 Del Method 12/31/22 07:52 O2 Flow Rate 2 12/31/22 07:52 Discharge Plan Discharge Patient Disposition: Home Condition: Stable Prescriptions: New amoxicillin-pot clavulanate 875-125 mg tablet 1 tab PO BID 8 Days Qty: 16 0RF Continued ergocalciferol (vitamin D2) 50 mcg (2,000 unit) capsule 50 mcg PO DAILY multivitamin Tablet 1 tab PO DAILY Vision Formula (with lutein) 1,000 unit-200 mg-60 unit-2 mg tablet 1 tab PO DAILY Rx Instructions: administer after a meal albuterol sulfate [Ventolin HFA] 90 mcg/actuation HFA aerosol inhaler 2 puff INHALATION Q4H PRN (Reason: shortness of breath or wheezing) 30 Days Qty: 6.7 2RF allopurinol 300 mg tablet 300 mg PO QDAY 30 Days Qty: 30 2RF aspirin [Adult Low Dose Aspirin] 81 mg tablet,delayed release (DR/EC) 81 mg PO QDAY 30 Days Qty: 30 2RF atorvastatin 20 mg tablet 20 mg PO QDAY 30 Days Qty: 30 2RF clopidogrel [Plavix] 75 mg tablet 75 mg PO QDAY 30 Days Qty: 30 2RF Jardiance 10 mg tablet 10 mg PO DAILY Qty: 30 2RF famotidine [Pepcid] 40 mg tablet 40 mg PO BID 30 Days Qty: 60 2RF Trelegy Ellipta 100-62.5-25 mcg blister with device 1 inh INHALATION QDAY 30 Days Qty: 28 2RF glipizide 2.5 mg tablet extended release 24hr 2.5 mg PO QDAY 30 Days Qty: 30 2RF guaifenesin [Mucinex] 600 mg tablet extended release 12hr 600 mg PO BID 30 Days Qty: 60 2RF levothyroxine [Synthroid] 75 mcg tablet 75 mcg PO QDAY 30 Days Qty: 30 2RF losartan 100 mg tablet 100 mg PO QDAY 30 Days Qty: 30 2RF metformin 500 mg tablet 500 mg PO BID 30 Days Qty: 60 2RF Daliresp 250 mcg tablet 250 mcg PO DAILY Qty: 30 2RF albuterol sulfate 2.5 mg /3 mL (0.083 %) solution for nebulization 2.5 mg INHALATION Q4H PRN (Reason: shortness of breath or wheezing) 30 Days Qty: 75 2RF (DME) Disp Neb Kit W/mouthpc T& 7 Tubing See Rx Instructions .Route .MEDSUPPLY Qty: 1 2RF Dose Instruction: USE DIRECTED Rx Instructions: USE DIRECTED ferrous gluconate 324 mg (38 mg iron) tablet 324 mg PO BID Qty: 60 2RF Vitamin B-12 2,500 mcg Tablet, Sublingual 2,500 mcg SUBLINGUAL DAILY Discontinued doxycycline hyclate 100 mg capsule 100 mg PO BID prednisone 20 mg tablet 20 mg PO DAILY Discharge Orders: Discharge Order (Routine); Ordered 12/31/22 Ordered By: Jessica Olvera Other Ambulatory Orders: DME: Oxygen (Order) Location: None Selected Ordered By: Jessica Olvera Referrals: Pete Barboza FNP-C [Primary Care Provider] - 01/06/23 3:00 pm Discharge Diet: Usual diet Discharge Activity: Resume usual activity and Oxygen as instructed Patient Instructions: Amoxicillin/Clavulanate Potassium (By mouth), Using Oxygen at Home (GEN), Pneumonia (GEN), Opioid Safety Discharge Attestations Time Spent in Discharge Care*: less than 30 min Quality Metrics Clinical Quality Measures [ No reported AMI, CVA or VTE this stay] Coding Level of Care Code Acute Code for Chg Fwd Diagnoses Right lower lobe pneumonia J18.9 COPD (chronic obstructive pulmonary disease) J44.9 Diabetes mellitus with hyperglycemia, with long-term current use of insulin E11.65; Z79.4 Diabetes mellitus type: type 2 Dyslipidemia E78.5 Benign hypertension I10 Adult onset hypothyroidism E03.8 GERD (gastroesophageal reflux disease) K21.9 Esophagitis presence: without esophagitis COPD (chronic obstructive pulmonary disease) J43.9 COPD type: emphysema Emphysema type: unspecified
[2022-12-31] MEDS: losartan 50 mg Tablet 100 MG PO (09:11)
[2022-12-31] MEDS: cyanocobalamin 1,000 mcg Tablet 2500 MCG PO (09:12)
[2022-12-31] MEDS: allopurinol 300 mg Tablet PO (09:15)
[2022-12-31] MEDS: atorvastatin 40 mg Tablet 20 MG PO (09:15)
[2022-12-31] MEDS: clopidogrel 75 mg Tablet PO (09:16)
[2022-12-31] MEDS: aspirin 81 mg EC Tablet PO (09:16)
[2022-12-31] MEDS: famotidine 20 mg Tablet 40 MG PO (09:16)
[2022-12-31] MEDS: guaiFENesin 600 mg Tablet PO (09:16)
[2022-12-31] MEDS: multivitamin therapeutic Tablet 1 TAB PO (09:16)
[2022-12-31] MEDS: roflumilast 500 mcg Tablet 250 MCG PO (09:17)
[2022-12-31] MEDS: ferrous gluconate 324 mg Tablet PO (09:17)
[2022-12-31] MEDS: predniSONE 20 mg Tablet PO (09:18)
[2022-12-31] MEDS: levothyroxine 75 mcg Tablet PO (09:18)
[2022-12-31 11:59] LABS: Glucose Point of Care 248 mg/dL (70-110)
[2022-12-31] MEDS: insulin lispro 100 unit/1 mL SUBCUT (12:13)
== END 2022-12-31 12:50 | disposition home or self-care (01) | DRG 195 ==
LOC: ER 13:51 → MEDSURG 15:38
PROVIDERS: Admitting Provider Internal Medicine; Emergency Provider Emergency Medicine; PCP Nurse Practitioner; Visit Provider Internal Medicine
DX: J18.9 Pneumonia, unspecified organism (principal); J43.9 Emphysema, unspecified; E11.65 Type 2 diabetes mellitus with hyperglycemia; E78.5 Hyperlipidemia, unspecified; I10 Essential (primary) hypertension; E03.8 Other specified hypothyroidism; K21.9 Gastro-esophageal reflux disease without esophagitis; E03.9 Hypothyroidism, unspecified; I25.10 Atherosclerotic heart disease of native coronary artery without angina pectoris; M10.9 Gout, unspecified; Z79.4 Long term (current) use of insulin; Z79.02 Long term (current) use of antithrombotics/antiplatelets; Z79.84 Long term (current) use of oral hypoglycemic drugs; Z79.82 Long term (current) use of aspirin; Z99.81 Dependence on supplemental oxygen; Z87.891 Personal history of nicotine dependence; Z79.52 Long term (current) use of systemic steroids
CPT/HCPCS: 36415; 36416; 71045; 80048; 80053; 82962; 83605; 83735; 83880; 84145; 84443; 84484; 85025; 87040; 87070; 87205; 87426; 87641; 87804; 93005; 94640; 94664; 94760; 96365; 96367; 96372; 99285; J0456; J0696; J1644; J1815; J3475; J7050; J7120; J7512; J7613; J7644

== ENCOUNTER → 2023-01-06 15:26 | Outpatient (BNVA) | payer MEDICARE, SELFPAY | PROVIDERS: PCP Nurse Practitioner; Visit Provider Nurse Practitioner | DX: E11.65 Type 2 diabetes mellitus with hyperglycemia (principal); Z79.4 Long term (current) use of insulin; J44.9 Chronic obstructive pulmonary disease, unspecified | CPT/HCPCS: 71046; 81000; 83036 ==

== ENCOUNTER → 2023-03-29 08:16 | Outpatient (BNVA) | payer MEDICARE, SELFPAY | PROVIDERS: PCP Nurse Practitioner; Visit Provider Nurse Practitioner | DX: E87.1 Hypo-osmolality and hyponatremia (principal); E11.65 Type 2 diabetes mellitus with hyperglycemia; E03.8 Other specified hypothyroidism; Z79.4 Long term (current) use of insulin | CPT/HCPCS: 80053; 80061; 83036; 84443; 85025 ==

== ENCOUNTER → 2023-06-15 08:10 | Outpatient (BNVA) | payer MEDICARE, SELFPAY | PROVIDERS: PCP Nurse Practitioner; Visit Provider Nurse Practitioner | DX: E11.65 Type 2 diabetes mellitus with hyperglycemia (principal); Z79.4 Long term (current) use of insulin; E03.8 Other specified hypothyroidism | CPT/HCPCS: 80053; 80061; 83036; 84443; 85025 ==

== ENCOUNTER → 2023-06-16 08:05 | Outpatient (BNVA) | payer MEDICARE, SELFPAY | PROVIDERS: PCP Nurse Practitioner; Visit Provider Nurse Practitioner | DX: E11.65 Type 2 diabetes mellitus with hyperglycemia (principal); Z79.4 Long term (current) use of insulin | CPT/HCPCS: 81000 ==

== ENCOUNTER → 2023-09-21 08:33 | Outpatient (BNVA) | payer MEDICARE, SELFPAY | PROVIDERS: PCP Nurse Practitioner; Visit Provider Nurse Practitioner | DX: J43.9 Emphysema, unspecified (principal); M1A.9XX0 Chronic gout, unspecified, without tophus (tophi); E11.65 Type 2 diabetes mellitus with hyperglycemia; Z79.4 Long term (current) use of insulin; E78.5 Hyperlipidemia, unspecified; I25.10 Atherosclerotic heart disease of native coronary artery without angina pectoris; K21.9 Gastro-esophageal reflux disease without esophagitis; E61.1 Iron deficiency; E03.8 Other specified hypothyroidism; I10 Essential (primary) hypertension; Z23 Encounter for immunization; J44.9 Chronic obstructive pulmonary disease, unspecified | CPT/HCPCS: 80053; 83036; 83735 ==

== ENCOUNTER → 2023-12-14 08:53 | Outpatient (BNVA) | payer MEDICARE, SELFPAY | PROVIDERS: PCP Nurse Practitioner; Visit Provider Nurse Practitioner | DX: J43.9 Emphysema, unspecified (principal); M1A.9XX0 Chronic gout, unspecified, without tophus (tophi); E11.65 Type 2 diabetes mellitus with hyperglycemia; Z79.4 Long term (current) use of insulin; E78.5 Hyperlipidemia, unspecified; I25.10 Atherosclerotic heart disease of native coronary artery without angina pectoris; E61.1 Iron deficiency; E03.8 Other specified hypothyroidism; I10 Essential (primary) hypertension; K21.9 Gastro-esophageal reflux disease without esophagitis; G47.00 Insomnia, unspecified | CPT/HCPCS: 80053; 80061; 81000; 82607; 83036 ==

== ENCOUNTER → 2024-03-07 09:26 | Outpatient (BNVA) | payer MEDICARE, SELFPAY | PROVIDERS: PCP Nurse Practitioner; Visit Provider Nurse Practitioner | DX: E11.9 Type 2 diabetes mellitus without complications | CPT/HCPCS: 80053; 80061; 83036 ==

== ENCOUNTER → 2024-05-24 08:10 | Outpatient (BNVA) | payer MEDICARE, SELFPAY | PROVIDERS: PCP Nurse Practitioner; Visit Provider Nurse Practitioner | DX: E11.65 Type 2 diabetes mellitus with hyperglycemia (principal) | CPT/HCPCS: 80053; 81000; 83036 ==

== ENCOUNTER 2024-07-25 14:43 | Outpatient (CLI) | payer MEDICARE, SELFPAY | END 2024-07-25 14:44 | disposition home or self-care (01) | LOC: RAD 08-01 15:42 | PROVIDERS: PCP Nurse Practitioner; Visit Provider Nurse Practitioner | DX: K59.01 Slow transit constipation (principal); E61.1 Iron deficiency | CPT/HCPCS: 80053; 83540; 85025 ==

== ENCOUNTER → 2024-08-08 09:15 | Outpatient (BNVA) | payer MEDICARE, SELFPAY | PROVIDERS: PCP Nurse Practitioner; Visit Provider Nurse Practitioner | DX: E11.9 Type 2 diabetes mellitus without complications | CPT/HCPCS: 81000 ==

== ENCOUNTER 2024-08-16 08:39 | Outpatient (CLI) | payer MEDICARE, SELFPAY ==
--- NOTE | 2024-08-16 08:41 | CT_ITS ---
WS: [id number] CT ABDOMEN AND PELVIS NONCONTRAST HISTORY: K59.01 - Slow transit constipation TECHNIQUE: Imaging performed through the abdomen and pelvis. Coronal and sagittal reformats are submi tted. All CT scans at [facility] use at least one of these dose optimization techniques: auto mated exposure control; mA and/or kV adjustment per patient size (includes targeted exams where dose is matched to clinical indication); or iterative reconstruction. DLP: 362.86 mGy.cm COMPARISON: None available. Lower thorax: Airspace disease and consolidation at the RIGHT lung base. There is bronchial wall thic kening and bronchiectasis. Debris is noted within the lower lobe bronchi. Bilateral granuloma the parminder g bases. Normal size heart. Liver: Normal liver with granulomata. Gallbladder: Normally distended with cholelithiasis. Pancreas: Atrophy. There is a high density nodule measuring 4 mm sided within the pancreatic head or distal common bile duct. No duct dilatation is apparent. Spleen: Normal. Adrenal glands: Normal. No mass. Right kidney: Normal size kidney with no mass or hydronephrosis. Left kidney: Normal size kidney with no mass or hydronephrosis. Aorta: Moderate atherosclerosis abdominal aorta with no aneurysm. Mesenteric artery atherosclerosis. No free fluid, intraperitoneal air or significant lymphadenopathy. GI tract: Stomach is well distended with oral contrast. No small bowel obstruction. There is marked f ecal retention and constipation with overlapping loops of bowel. Normal appendix. No obstruction. Abdominal wall: Negative. No hernia. Pelvis: Distended urinary bladder. No intraluminal filling defects. Osseous structures: Degenerative disc disease at L5-S1. CT/CT abdomen pelvis wo con [id number] IMPRESSION: 1. Marked diffuse constipation with overlapping loops of tortuous colon from c hronic constipation. 2. No GI tract obstruction. 3. RIGHT basilar airspace disease with bronchiectasis and debris in the bronch i. This may be a chronic process. 4. Cholelithiasis without acute cholecystitis. 5. There is a tiny 4 mm hyperdense focus which may be associated with the dist al common bile duct or pancreatic head. Very nonspecific in appearance. Follow- up CT with IV contrast in 3 to 4 months can be obtained if follow-up is thought necessary. The common bile duct does not appear dilated. 6. Moderate atherosclerosis aorta and mesenteric arteries.
[2024-08-16] MEDS: iohexol 350 mg/mL 500 mL Btl (per mL) PO (09:36)
== END 2024-08-16 08:40 | disposition home or self-care (01) ==
LOC: RAD 08:39
PROVIDERS: PCP Nurse Practitioner; Visit Provider Nurse Practitioner
DX: K59.01 Slow transit constipation (principal); J98.11 Atelectasis; J47.9 Bronchiectasis, uncomplicated; J84.10 Pulmonary fibrosis, unspecified; K75.3 Granulomatous hepatitis, not elsewhere classified; K80.20 Calculus of gallbladder without cholecystitis without obstruction; K86.89 Other specified diseases of pancreas; I70.0 Atherosclerosis of aorta; M51.36 Other intervertebral disc degeneration, lumbar region; M51.37 Other intervertebral disc degeneration, lumbosacral region
CPT/HCPCS: 74176

== ENCOUNTER 2024-09-09 13:49 | Emergency (ER) | payer MEDICARE, SELFPAY ==
[2024-09-09] VITALS (14 sets, daily range): BP systolic 114–167; BP diastolic 49–71; PULSE 103–123; RESP 16–30; TEMP 36.9; O2SAT 87–96; BMI 22.8
--- NOTE | 2024-09-09 13:51 | ECG_ITS ---
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 Measurements Intervals [place] Rate: 120 P: 82 AL: 153 QRS: 64 QRSD: 86 T: 76 QT: 300 QTc: 425 Interpretive Statements SINUS TACHYCARDIA Compared to ECG 12/29/2022 17:00:12 No significant changes Electronically Signed On 09-10-2024 14:09:58 CDT by New Moore M.D. [id number]
--- NOTE | 2024-09-09 13:59 | ED_ITS ---
HPI - General Adult 2 General: Chief complaint: Shortness of Breath/Dyspnea Stated complaint: SOB Time Seen by Provider: 09/09/24 13:58 History of Present Illness: Patient presents to the ER with cold-like symptoms congestion for the last 2 days. Patient states his pressure he has pneumonia. Patient says he is very short of breath. Patient wears 2 L of oxygen per nasal cannula at home as needed. Patient states he has been wearing it nonstop for the last 2 days. Upon arrival on room air patient desatted to 87% so he was put back on 2 L and he climbed to 92%. Patient was given 125 mg Solu-Medrol en route by EMS along with 1 albuterol nebulizer treatment. Related Data Home Medications Medication Instructions Recorded Confirmed ergocalciferol (vitamin D2) 50 mcg 50 mcg PO DAILY 01/25/22 08/21/24 (2,000 unit) capsule multivitamin 1 tab PO DAILY 01/25/22 08/21/24 vit A 300 mcg-C 200 mg-E 27 1 tab PO DAILY 01/25/22 08/21/24 mg-lutein 2 mg and minerals tablet (Vision Formula (with lutein)) cyanocobalamin (vitamin B-12) 2,500 mcg sublingual DAILY 12/29/22 08/21/24 2,500 mcg sublingual tablet (Vitamin B-12) Previous Rx's Medication Instructions Recorded Disp Neb Kit W/mouthpc T& 7 Tubing #1 ea 01/08/21 albuterol sulfate 2.5 mg/3 mL 2.5 mg (3 mL) inhalation Q4H PRN 08/08/24 (0.083 %) solution for nebulization shortness of breath or wheezing 30 days #300 mL albuterol sulfate 90 mcg/actuation 2 puff inhalation Q4H PRN 08/08/24 aerosol inhaler (Ventolin HFA) shortness of breath or wheezing 30 days #6.7 grams allopurinol 300 mg tablet 300 mg PO QDAY 30 days #30 tabs 08/08/24 aspirin 81 mg tablet,delayed 81 mg PO QDAY 30 days #30 tabs 08/08/24 release (Adult Low Dose Aspirin) atorvastatin 20 mg tablet 20 mg PO QDAY 30 days #30 tabs 08/08/24 clopidogrel 75 mg tablet (Plavix) 75 mg PO QDAY 30 days #30 tabs 08/08/24 empagliflozin 25 mg tablet 25 mg PO QAM #30 tabs 08/08/24 (Jardiance) fluticasone fur. 100 mcg-umeclid 1 inh inhalation QDAY 30 days #28 08/08/24 62.5 mcg-vilant 25 mcg ea inhalat.powder (Trelegy Ellipta) glipizide 2.5 mg tablet, extended 2.5 mg PO QDAY 30 days #30 tabs 08/08/24 release 24 hr guaifenesin 600 mg tablet, 600 mg PO BID 30 days #60 tabs 08/08/24 extended release 12 hr (Mucinex) levothyroxine 75 mcg tablet 75 mcg PO QDAY 30 days #30 tabs 08/08/24 (Synthroid) losartan 100 mg tablet 100 mg PO QDAY 30 days #30 tabs 08/08/24 metformin 500 mg tablet 500 mg PO BID 30 days #60 tabs 08/08/24 pantoprazole 20 mg tablet,delayed 20 mg PO DAILY #30 tabs 08/08/24 release evolocumab 140 mg/mL subcutaneous 140 mg SUBCUT .every 14 day #2 mL 08/21/24 pen injector (Alta Pettit) promethazine-DM 6.25 mg-15 mg/5 mL 5 ml PO Q6H PRN cough #120 mL 08/21/24 oral syrup cefdinir 300 mg capsule 300 mg PO BID 10 days #20 caps 09/09/24 prednisone 50 mg tablet 50 mg PO DAILY #5 tabs 09/09/24 Allergies Allergy/AdvReac Type Severity Reaction Status Date / Time No Known Allergies Allergy Verified 09/09/24 14:02 Review of Systems 2 General: Reports: 10 or more systems reviewed and unremarkable except in HPI and below PFSH ED 2 PFSH: Medical History Diabetes mellitus with hyperglycemia, without long-term current use of insulin Phimosis Low serum iron B12 deficiency Cardiovascular disease Gout, unspecified Dyslipidemia Benign hypertension Adult onset hypothyroidism GERD (gastroesophageal reflux disease) COPD (chronic obstructive pulmonary disease) Surgical History History of cataract surgery Sep.02 History of vascular surgery 05/2019 Family History Son Diabetes Father , AT 85 No problems noted. Mother , AT AGE 70 Brain tumor Social History Smoking and tobacco/nicotine status: former use of tobacco/nicotine Second hand smoke exposure: No Alcohol intake: former Substance/Drug Use: never Adopted: No Caregiver/support person: No Lives independently: Yes Household members: spouse Housing: House Marital status: service: No Current occupational status: retired Current occupational exposures/hazards: No Do you think of yourself as: Straight/Heterosexual Current gender identity: Male Physical Exam 2 Const: COMMON NORMALS: no acute distress, average body habitus, patient oriented x3, no limitations, healthy appearing, alert and well nourished HENMT: COMMON NORMALS: normocephalic, atraumatic, hearing grossly normal bilaterally, external ears normal, Normal external nose present and moist oral mucous membranes HEAD & SCALP: normocephalic and atraumatic NOSE: Normal external nose present EXTERNAL EAR: Yes external ears normal Eye: COMMON NORMALS: Equal, round and reactive pupils present, EOMs intact bilaterally, conjunctivae normal and no scleral icterus CONJUNCTIVA: Yes conjunctivae normal PUPIL: Yes Equal, round and reactive pupils present Neck/C-Spine: COMMON NORMALS: full ROM, no lymphadenopathy, supple, no meningeal signs, no JVD and Thyroid normal THYROID: Thyroid normal Chest: COMMONS NORMALS: normal inspection of the chest and normal palpation of entire chest wall Resp: COMMON NORMALS: normal respiratory effort, No retractions and No use of accessory muscles; negative for clear to auscultation bilaterally (Diffuse rhonchi) A USCULTATION: not clear to auscultation bilaterally (Diffuse rhonchi) Cardio: COMMON NORMALS: no JVD, regular rate, regular rhythm, S1 normal heart sound present, S2 normal heart sound present, No gallops present (Cardio), No clicks present (Cardio), No murmurs present (Cardio) and No rub (Cardio) R ATE: regular rate RHYTHM: regular rhythm HEART SOUNDS: S1 normal heart sound present and S2 normal heart sound present GI: COMMON NORMALS: Normal to inspection, nondistended, normoactive bowel sounds present, Soft to palpation, non-tender, No hepatosplenomegaly present and no masses PALPATION: Yes Soft to palpation and Yes No hepatosplenomegaly present Neuro: COMMON NORMALS: patient oriented x3 SENSORIUM/ORIENTATION: Yes alert MENINGEAL SIGNS: Yes no meningeal signs Course 2 Vital Signs: Vital signs: Vital Signs Temperature 98.5 F 09/09/24 13:53 Pulse Rate 115 H 09/09/24 15:45 Respiratory Rate 20 H 09/09/24 15:45 Blood Pressure 167/52 09/09/24 13:53 Pulse Oximetry 93 09/09/24 15:45 Oxygen Delivery Me thod Room Air 09/09/24 14:11 MDM - General Adult Medical Decision Making Patient was into the ER possible pneumonia, chest x-ray did not show any acute findings, lab work revealed white count 12, hemoglobin hematocrit 13 and 44, BUN/creatinine is seventeen 1.0, D-dimer was slightly positive therefore CTA was ordered which showed acute right lower lobe pneumonia with severe bronchiectasis, patient was given 1 dose of Zosyn here and will be discharged on Omnicef. Patient was given the option to stay due to his hypoxia to receive IV antibiotics however he elected to go home to do oral antibiotics because he has oxygen at home. He was instructed to come back immediately if his symptoms worsen he lives in [place] which is about 30 miles away and he knows the risks and is willing to accept the risk as well as his family members. Patient be discharged. Medical Records I reviewed the patient's medical records. Lab Data I reviewed the patient's lab results. 09/09/24 14:13 09/09/24 14:13 Radiology Impressions Chest X-Ray 09/09/24 14:00 IMPRESSION: 1. No acute findings. 2. Chronic lung changes noted Chest CTA 09/09/24 16:26 IMPRESSION: 1. Acute right lower lobe pneumonia with severe chronic bronchiectasis involving both lungs 2. 7 mm noncalcified left lung nodule 3. For patients at low risk (minimal or absent history of smoking and of other known risk factors), no routine follow-up is indicated. For patients at high risk (history of smoking or of other known risk factors), consider optional CT Chest at 12 months. (Reference: Cale) REFERENCES: Cale Sesay, et al. Guidelines for Management of Incidental Pulmonary Nodules Detected on CT Images: From the Fleischner Society 2017. Radiology. 2017;284(1):228-243. Laboratory Results WBC 12.07 10^3/uL (3.29-11.43) H 09/09/24 14:13 RBC 4.73 10^6/uL (3.85-5.65) 09/09/24 14:13 Hgb 13.80 g/dL (11.27-16.99) 09/09/24 14:13 Hct 44.1 % (37-53) 09/09/24 14:13 MCV 93.2 fl (82-101) 09/09/24 14:13 MCH 29.2 pg (27-33) 09/09/24 14:13 MCHC 31.3 g/dL (30-55) 09/09/24 14:13 RDW 13.7 % (12.1-15.1) 09/09/24 14:13 Plt Count 195 10^3/cmm (157-399) 09/09/24 14:13 MPV 10.1 fL (7.4-10.4) 09/09/24 14:13 Neut % (Auto) 90.7 % 09/09/24 14:13 Lymph % (Auto) 4.3 % 09/09/24 14:13 [place] % (Auto) 4.4 % 09/09/24 14:13 Eos % (Auto) 0.0 % 09/09/24 14:13 Baso % (Auto) 0.2 % 09/09/24 14:13 Neut # (Auto) 10.94 10^3/uL (1.8-7.7) H 09/09/24 14:13 Lymph # (Auto) 0.5 10^3/uL (0.8-4.8) L 09/09/24 14:13 [place] # (Auto) 0.5 10^3/uL (0.2-0.9) 09/09/24 14:13 Eos # (Auto) 0.0 10^3/uL (0.0-0.8) 09/09/24 14:13 Baso # (Auto) 0.0 10^3/uL (0.0-0.1) 09/09/24 14:13 Nucleated RBC % (auto) 0 % 09/09/24 14:13 Nucleated RBCs # 0.0 /100WBC 09/09/24 14:13 PT 14.00 SECONDS (12.1-14.9) 09/09/24 14:13 INR 1.05 (0.8-1.2) 09/09/24 14:13 D-Dimer 0.65 ug/mLFEU (0-0.59) H 09/09/24 14:30 Specimen Type Arterial 09/09/24 14:16 Sample Site Radial, left 09/09/24 14:16 ABG pH 7.49 (7.35-7.45) H 09/09/24 14:16 ABG pCO2 34.6 mmHg (35-45) L 09/09/24 14:16 ABG pO2 61.7 mmHg (80.0-100.0) L 09/09/24 14:16 ABG PO2/FiO2 Ratio 293 09/09/24 14:16 ABG HCO3 26.3 mmol/L (22-26) H 09/09/24 14:16 ABG O2 Saturation 93.7 09/09/24 14:16 ABG Base Excess 3.2 mmol/L (-2.0-2.0) H 09/09/24 14:16 Chirag Test Pos 09/09/24 14:16 A-a O2 Gradient 5.8 mmHg (5-10) 09/09/24 14:16 Hematocrit 42.0 % (42-52) 09/09/24 14:16 Hgb O2 Saturation 91.7 % (95-100) L 09/09/24 14:16 Carboxyhemoglobin 1.2 %THgb (0.4-20.1) 09/09/24 14:16 Methemoglobin 0.9 % (0.4-1.5) 09/09/24 14:16 Total Hemoglobin 13.7 g/dL (14-18) L 09/09/24 14:16 Sodium 134.0 mmol/L (131-143) 09/09/24 14:16 Potassium 4.2 mmol/L (3.5-5.0) 09/09/24 14:16 Glucose 163.0 mg/dL (70-115) H 09/09/24 14:16 Ionized Calcium 1.0 mmol/L (1.1-1.4) L 09/09/24 14:16 O2 Delivery Device Room air 09/09/24 14:16 FiO2 21.0 % 09/09/24 14:16 Insurance Licensing Supervisor ID Cak 09/09/24 14:16 Sodium 134 mmol/L (136-145) L 09/09/24 14:13 Potassium 4.3 mmol/L (3.5-5.1) 09/09/24 14:13 Chloride 92 mmol/L (98-107) L 09/09/24 14:13 Carbon Dioxide 27 mmol/L (22-29) 09/09/24 14:13 Anion Gap 19.3 (5-19) H 09/09/24 14:13 BUN 17 mg/dL (8-23) 09/09/24 14:13 Creatinine 1.0 mg/dL (0.7-1.2) 09/09/24 14:13 GFR Calculation Not Reportable 09/09/24 14:13 Glucose 165 mg/dL (65-115) H 09/09/24 14:13 Calculated Osmolality 283 mOsm/kg (285-295) L 09/09/24 14:13 Lactic Acid 1.7 mmol/L (0.5-2.2) 09/09/24 14:13 Calcium 8.6 mg/dL (8.5-10.5) 09/09/24 14:13 Total Bilirubin 1.0 mg/dL (0.15-1.2) 09/09/24 14:13 AST 16 U/L (0-40) 09/09/24 14:13 ALT 11 U/L (0-41) 09/09/24 14:13 Alkaline Phosphatase 99 U/L (40-130) 09/09/24 14:13 Troponin T Baseline 33 ng/L (0-15) H 09/09/24 14:13 Troponin T 120 Minute 27.45 ng/L (0-15) H 09/09/24 16:08 Delta Troponin T -5.55 ABS# (0-10) L 09/09/24 16:08 Total Protein 7.1 g/dL (6.6-8.7) 09/09/24 14:13 Albumin 4.2 g/dL (3.5-5.2) 09/09/24 14:13 Globulin 2.9 g/dL (1.3-4.6) 09/09/24 14:13 Procalcitonin 0.16 ng/mL (0-0.5) 09/09/24 14:13 All radiology interpretation(s) finalized by discharge Discharge Plan Discharge Patient Disposition: Home Clinical Impression: Pneumonia Qualifiers: Pneumonia type: due to unspecified organism Laterality: right Lung location: l ower lobe of lung Qualified Code(s): J18.9 - Pneumonia, unspecified organism Condition: Stable Prescriptions: New cefdinir 300 mg capsule 300 mg PO BID 10 Days Qty: 20 0RF prednisone 50 mg tablet 50 mg PO DAILY Qty: 5 0RF No Action ergocalciferol (vitamin D2) 50 mcg (2,000 unit) capsule 50 mcg PO DAILY multivitamin Tablet 1 tab PO DAILY Vision Formula (with lutein) 1,000 unit-200 mg-60 unit-2 mg tablet 1 tab PO DAILY Rx Instructions: administer after a meal albuterol sulfate 2.5 mg /3 mL (0.083 %) solution for nebulization 2.5 mg INHALATION Q4H PRN (Reason: shortness of breath or wheezing) 30 Days Qty: 300 2RF albuterol sulfate [Ventolin HFA] 90 mcg/actuation HFA aerosol inhaler 2 puff INHALATION Q4H PRN (Reason: shortness of breath or wheezing) 30 Days Qty: 6.7 2RF allopurinol 300 mg tablet 300 mg PO QDAY 30 Days Qty: 30 2RF aspirin [Adult Low Dose Aspirin] 81 mg tablet,delayed release (DR/EC) 81 mg PO QDAY 30 Days Qty: 30 2RF atorvastatin 20 mg tablet 20 mg PO QDAY 30 Days Qty: 30 2RF clopidogrel [Plavix] 75 mg tablet 75 mg PO QDAY 30 Days Qty: 30 2RF Jardiance 25 mg tablet 25 mg PO QAM Qty: 30 2RF Trelegy Ellipta 100-62.5-25 mcg blister with device 1 inh INHALATION QDAY 30 Days Qty: 28 2RF glipizide 2.5 mg tablet extended release 24hr 2.5 mg PO QDAY 30 Days Qty: 30 2RF guaifenesin [Mucinex] 600 mg tablet extended release 12hr 600 mg PO BID 30 Days Qty: 60 2RF levothyroxine [Synthroid] 75 mcg tablet 75 mcg PO QDAY 30 Days Qty: 30 2RF losartan 100 mg tablet 100 mg PO QDAY 30 Days Qty: 30 2RF metformin 500 mg tablet 500 mg PO BID 30 Days Qty: 60 2RF pantoprazole 20 mg tablet,delayed release (DR/EC) 20 mg PO DAILY Qty: 30 2RF Rx Instructions: take with mag ox 400mg day and probiotic daily Repatha SureClick 140 mg/mL pen injector 140 mg SUBCUT .every 14 day Qty: 2 2RF promethazine-DM 6.25-15 mg/5 mL syrup 5 ml PO Q6H PRN (Reason: cough) Qty: 120 0RF (DME) Disp Neb Kit W/mouthpc T& 7 Tubing See Rx Instructions .Route .MEDSUPPLY Qty: 1 2RF Dose Instruction: USE DIRECTED Rx Instructions: USE DIRECTED Vitamin B-12 2,500 mcg Tablet, Sublingual 2,500 mcg SUBLINGUAL DAILY Discharge Orders: Discharge ED (Routine); Ordered 09/09/24 Ordered By: Sheng Plummer Referrals: Pete Barboza, [facility]-[facility] [Primary Care Provider] - 1 week Patient Instructions: Pneumonia - Bacterial Activity Restrictions/Additional Instructions: You have elected not to stay in hospital and to go home. We will place you on oral antibiotics and steroids. Please continue using her oxygen at all times for the next several days and take your medicine as directed. If your breathing gets worse or he just generally feel worse please feel free to return to the ER for further evaluation and possible admission. Thank you for choosing [facility] for your healthcare needs today. Please realize that you were seen in the emergency department and that we are providing you with an emergency medical screening exam and this may not be a complete and all exclusive of all testing and/or medical workup we may need to determine your element or severity of your illness. It is very important that you follow-up as instructed with your primary care provider or specialist for the additional evaluation and to discuss your medical treatment plan. You may return to the emergency department should you have concerns or if your condition changes or worsens in any way. 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
--- NOTE | 2024-09-09 14:00 | XRR_ITS ---
PROCEDURE INFORMATION: Exam: XR Chest Exam date and time: 09/09/2024 2:23 PM Age: 83 years old Clinical indication: Prior surgery; Surgery date: 6+ months; Surgery type: RT carotid endarterectomy; Patient HX: Dyspnea; Rhonchi; Low o2 sat; HX pneumonia TECHNIQUE: Imaging protocol: Radiologic exam of the chest. Views: 1 view. COMPARISON: CR XR chest 2V* [id number] 01/06/2023 3:26 PM FINDINGS: Lungs: There is prominent chronic bibasilar interstitial fibrosis. I see no acute infiltrate or lung mass. Pleural spaces: Unremarkable. No pleural effusion. No pneumothorax. Heart/Mediastinum: Unremarkable. No cardiomegaly. Bones/joints: Unremarkable. XR/XR chest 1V portable [id number] IMPRESSION: 1. No acute findings. 2. Chronic lung changes noted
[2024-09-09] MEDS: ipratropium-albuterol 3 mL Neb INHALATION (14:11)
[2024-09-09 14:23] LABS: Basophils % 0.2 %; Hematocrit 44.1 % (37-53); Lymphocytes # 0.5 10^3/uL (0.8-4.8); Lymphocytes % 4.3 %; Mean Corpuscular HGB Conc 31.3 g/dL (30-55); Mean Corpuscular Hemoglobin 29.2 pg (27-33); Mean Corpuscular Volume 93.2 fl (82-101); Mean Platelet Volume 10.1 fL (7.4-10.4); Monocytes # 0.5 10^3/uL (0.2-0.9); Monocytes % 4.4 %; Neutrophils # 10.94 10^3/uL (1.8-7.7); Neutrophils % 90.7 %; Nucleated Red Blood Cells % 0 %; Platelet Count 195 10^3/cmm (157-399); Red Blood Count 4.73 10^6/uL (3.85-5.65); Red Cell Distribution Width 13.7 % (12.1-15.1); White Blood Count 12.07 10^3/uL (3.29-11.43)
[2024-09-09 14:27] LABS: Blood Gas Allen Test Pos; Blood Gas Sample Type Arterial; Carboxyhemoglobin 1.2 %THgb (0.4-20.1)
[2024-09-09 14:28] LABS: ABG PCO2 34.6 mmHg (35-45); ABG PH Result 7.49 (7.35-7.45); Alveolar-Arterial Oxygen Gradi 5.8 mmHg (5-10); Base Excess ABG 3.2 mmol/L (-2.0-2.0); Blood Gas Operator Identificat CAK; Blood Gas Sample Site Radial, left; HCO3 ABG 26.3 mmol/L (22-26); HGB O2 Sat 91.7 % (95-100); Methemoglobin 0.9 % (0.4-1.5); Oxygen Device ROOM AIR; Oxygen Saturation ABG 93.7; PO2 ABG 61.7 mmHg (80.0-100.0); PO2 FiO2 Ratio Arterial Blood 293; Potassium Level - ABG 4.2 mmol/L (3.5-5.0); Total Hemoglobin 13.7 g/dL (14-18)
[2024-09-09 14:35] LABS: INR 1.05 (0.8-1.2)
[2024-09-09] MEDS: sodium chloride 0.9% 1,000 ML 999 ML IV (14:38)
[2024-09-09 14:43] LABS: Lactic Sepsis W/Reflex 1.7 mmol/L (0.5-2.2)
[2024-09-09 14:44] LABS: Alanine Aminotransferase 11 U/L (0-41); Albumin Level 4.2 g/dL (3.5-5.2); Alkaline Phosphatase 99 U/L (40-130); Anion Gap 19.3 (5-19); Aspartate Amino Transferase 16 U/L (0-40); Blood Urea Nitrogen 17 mg/dL (8-23); Calcium 8.6 mg/dL (8.5-10.5); Carbon Dioxide 27 mmol/L (22-29); Chloride 92 mmol/L (98-107); Creatinine Clr Calc Pharmacy 55.8464; Globulin 2.9 g/dL (1.3-4.6); Glucose 165 mg/dL (65-115); Osmolality Calculated 283 mOsm/kg (285-295); Potassium 4.3 mmol/L (3.5-5.1); Sodium 134 mmol/L (136-145); Total Protein 7.1 g/dL (6.6-8.7); Troponin(5th) Baseline 33 ng/L (0-15)
[2024-09-09 14:49] LABS: Procalcitonin 0.16 ng/mL (0-0.5)
--- NOTE | 2024-09-09 16:01 | ECG_ITS ---
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 Measurements Intervals [place] Rate: 113 P: 76 MO: 143 QRS: 64 QRSD: 92 T: 78 QT: 328 QTc: 450 Interpretive Statements SINUS TACHYCARDIA Compared to ECG 09/09/2024 13:51:35 No significant changes Electronically Signed On 09-10-2024 14:15:57 CDT by New Moore M.D. [id number]
[2024-09-09 16:23] LABS: D Dimer 0.65 ug/mLFEU (0-0.59)
--- NOTE | 2024-09-09 16:26 | CTR_ITS ---
PROCEDURE INFORMATION: Exam: CTA Chest With Contrast Exam date and time: 09/09/2024 4:43 PM Age: 83 years old Clinical indication: Abnormal findings; Abnormal diagnostic tests; Elevated d-dimer; Dyspnea and tachypnea; Additional info: Dyspnea tachycardia elevated d dimer TECHNIQUE: Imaging protocol: Computed tomographic angiography of the chest with contrast. Exam focused on the arteries. 3D rendering (Not supervised by radiologist): MIP and/or 3D reconstructed images were created by the technologist. Radiation optimization: All CT scans at this facility use at least one of these dose optimization techniques: automated exposure control; mA and/or kV adjustment per patient size (includes targeted exams where dose is matched to clinical indication); or iterative reconstruction. Contrast material: OMNIPAQUE 350; Contrast volume: 67 ml; Contrast route: INTRAVENOUS (IV); COMPARISON: CR (CHEST, ) 09/09/2024 2:23 PM RADIATION DOSE METRICS: Total DLP (mGy-cm): 326.57 FINDINGS: Pulmonary arteries: Normal. No pulmonary emboli. Aorta: Unremarkable. No aortic aneurysm. No aortic dissection. Lungs: There is prominent cylindrical bronchiectasis throughout both lungs. There is extensive mucous plugging in the right lower lobe along with a large area of dense consolidation. A 7 mm pleural-based nodule is noted in the apex of the left lower lobe posteriorly. Calcified granulomas are noted bilaterally. Pleural spaces: Unremarkable. No pneumothorax. No pleural effusion. Heart: Unremarkable. No cardiomegaly. No pericardial effusion. Lymph nodes: Calcified lymph nodes are noted in the mediastinum and both nirmala. Bones/joints: Unremarkable. No acute fracture. Soft tissues: Unremarkable. CT/CT angio chest PE protcl [id number] IMPRESSION: 1. Acute right lower lobe pneumonia with severe chronic bronchiectasis involving both lungs 2. 7 mm noncalcified left lung nodule 3. For patients at low risk (minimal or absent history of smoking and of other known risk factors), no routine follow-up is indicated. For patients at high risk (history of smoking or of other known risk factors), consider optional CT Chest at 12 months. (Reference: Cale) REFERENCES: Cale Sesay, et al. Guidelines for Management of Incidental Pulmonary Nodules Detected on CT Images: From the Fleischner Society 2017. Radiology. 2017;284(1):228-243.
[2024-09-09 16:42] LABS: Troponin 5 2HR 27.45 ng/L (0-15)
[2024-09-09 16:43] LABS: Troponin 5 2HR Delta -5.55 ABS# (0-10)
[2024-09-09] MEDS: piperacillin-tazobactam 3.375 GM in sodium chloride 0.9% (plus) 50 ML IV (17:44)
== END 2024-09-09 18:23 | disposition home or self-care (01) ==
PROVIDERS: Emergency Provider Emergency Medicine; PCP Nurse Practitioner
DX: J18.9 Pneumonia, unspecified organism (principal); Z79.02 Long term (current) use of antithrombotics/antiplatelets; Z79.82 Long term (current) use of aspirin; Z79.84 Long term (current) use of oral hypoglycemic drugs; Z87.891 Personal history of nicotine dependence; E11.9 Type 2 diabetes mellitus without complications; E78.5 Hyperlipidemia, unspecified; I10 Essential (primary) hypertension
CPT/HCPCS: 36415; 36600; 71045; 71275; 80051; 80053; 82330; 82805; 83605; 84145; 84484; 85025; 85378; 85610; 87040; 93005; 94640; 96361; 96374; 99285; J2543; J7030; Q9967

== ENCOUNTER 2024-09-17 22:35 | Inpatient (IN) | payer MEDICARE, SELFPAY ==
--- NOTE | 2024-09-17 22:29 | ECG_ITS ---
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
--- NOTE | 2024-09-17 22:38 | CTR_ITS ---
PROCEDURE INFORMATION: Exam: CTA Chest With Contrast Exam date and time: 09/17/2024 11:15 PM Age: 83 years old Clinical indication: Cough and dyspnea; Additional info: Worsening dyspnea, otpt failure rll pneumonia TECHNIQUE: Imaging protocol: Computed tomographic angiography of the chest with contrast. Exam focused on the arteries. 3D rendering (Not supervised by radiologist): MIP and/or 3D reconstructed images were created by the technologist. Radiation optimization: All CT scans at this facility use at least one of these dose optimization techniques: automated exposure control; mA and/or kV adjustment per patient size (includes targeted exams where dose is matched to clinical indication); or iterative reconstruction. Contrast material: OMNI 350; Contrast volume: 100 ml; Contrast route: INTRAVENOUS (IV); COMPARISON: CT angio chest PE protcl [id number] 09/09/2024 4:43 PM RADIATION DOSE METRICS: Total DLP (mGy-cm): 354.2 FINDINGS: Pulmonary arteries: No pulmonary emboli. Aorta: Unremarkable. No aortic aneurysm. No aortic dissection. Lungs: Peripheral consolidations in the right lung base redemonstrated and similar with new masslike consolidations in the anterolateral aspect of the left lower lobe and periphery of the right middle lobe. Bronchial wall thickening with bronchiolectasis and mucous plugging in the lung bases, right middle lobe and lingula which are similar to the prior examination. Pleural spaces: Unremarkable. No pneumothorax. No pleural effusion. Heart: Unremarkable. No cardiomegaly. No pericardial effusion. Lymph nodes: Prominent subcarinal lymph node measuring up to 20 mm, previously 16 mm, in short axis. This may be reactive in nature. Bones/joints: Unremarkable. No acute fracture. Soft tissues: Unremarkable. CT/CT angio chest PE protcl [id number] IMPRESSION: 1. No pulmonary emboli. 2. Peripheral consolidations in the right lung base redemonstrated and similar with new masslike consolidations in the anterolateral aspect of the left lower lobe and periphery of the right middle lobe. Findings are thought likely infectious in etiology given the rapid progression. 3. Bronchial wall thickening with bronchiolectasis and mucous plugging in the lung bases, right middle lobe and lingula which are similar to the prior examination.
--- NOTE | 2024-09-17 22:40 | ED_ITS ---
HPI - SOB/Dyspnea 2 General: Chief Complaint: Shortness of Breath/Dyspnea Stated Complaint: SOB Time Seen by Provider: 09/17/24 22:40 History of Present Illness: HPI Narrative: Patient presents for with shortness of breath. Patient was diagnosed with pneumonia approximately week ago was sent home when on Omnicef at his request. Patient does have oxygen at home. Patient states he is only gotten worse since then. Patient did call EMS to bring him here because he was on for sure that he would make it here. Patient was sent home on cefdinir 300 mg twice a day for 10 days and prednisone 50 mg a day for 5 days patient normally wears 2 L of oxygen. EMS stated they gave the patient for breathing treatments on the way here to albuterol and 2 DuoNeb. Related Data Home Medications Medication Instructions Recorded Confirmed ergocalciferol (vitamin D2) 50 mcg 50 mcg PO DAILY 01/25/22 08/21/24 (2,000 unit) capsule multivitamin 1 tab PO DAILY 01/25/22 08/21/24 vit A 300 mcg-C 200 mg-E 27 1 tab PO DAILY 01/25/22 08/21/24 mg-lutein 2 mg and minerals tablet (Vision Formula (with lutein)) cyanocobalamin (vitamin B-12) 2,500 mcg sublingual DAILY 12/29/22 08/21/24 2,500 mcg sublingual tablet (Vitamin B-12) Previous Rx's Medication Instructions Recorded Disp Neb Kit W/mouthpc T& 7 Tubing #1 ea 01/08/21 albuterol sulfate 2.5 mg/3 mL 2.5 mg (3 mL) inhalation Q4H PRN 08/08/24 (0.083 %) solution for nebulization shortness of breath or wheezing 30 days #300 mL albuterol sulfate 90 mcg/actuation 2 puff inhalation Q4H PRN 08/08/24 aerosol inhaler (Ventolin HFA) shortness of breath or wheezing 30 days #6.7 grams allopurinol 300 mg tablet 300 mg PO QDAY 30 days #30 tabs 08/08/24 aspirin 81 mg tablet,delayed 81 mg PO QDAY 30 days #30 tabs 08/08/24 release (Adult Low Dose Aspirin) atorvastatin 20 mg tablet 20 mg PO QDAY 30 days #30 tabs 08/08/24 clopidogrel 75 mg tablet (Plavix) 75 mg PO QDAY 30 days #30 tabs 08/08/24 empagliflozin 25 mg tablet 25 mg PO QAM #30 tabs 08/08/24 (Jardiance) fluticasone fur. 100 mcg-umeclid 1 inh inhalation QDAY 30 days #28 08/08/24 62.5 mcg-vilant 25 mcg ea inhalat.powder (Trelegy Ellipta) glipizide 2.5 mg tablet, extended 2.5 mg PO QDAY 30 days #30 tabs 08/08/24 release 24 hr guaifenesin 600 mg tablet, 600 mg PO BID 30 days #60 tabs 08/08/24 extended release 12 hr (Mucinex) levothyroxine 75 mcg tablet 75 mcg PO QDAY 30 days #30 tabs 08/08/24 (Synthroid) losartan 100 mg tablet 100 mg PO QDAY 30 days #30 tabs 08/08/24 metformin 500 mg tablet 500 mg PO BID 30 days #60 tabs 08/08/24 pantoprazole 20 mg tablet,delayed 20 mg PO DAILY #30 tabs 08/08/24 release evolocumab 140 mg/mL subcutaneous 140 mg SUBCUT .every 14 day #2 mL 08/21/24 pen injector (Repatha ProtectWiseMaikolick) promethazine-DM 6.25 mg-15 mg/5 mL 5 ml PO Q6H PRN cough #120 mL 08/21/24 oral syrup cefdinir 300 mg capsule 300 mg PO BID 10 days #20 caps 09/09/24 prednisone 50 mg tablet 50 mg PO DAILY #5 tabs 09/09/24 Allergies Allergy/AdvReac Type Severity Reaction Status Date / Time No Known Allergies Allergy Verified 09/09/24 14:02 Review of Systems 2 General: Reports: 10 or more systems reviewed and unremarkable except in HPI and below PFSH ED 2 PFSH: Medical History Diabetes mellitus with hyperglycemia, without long-term current use of insulin Phimosis Low serum iron B12 deficiency Cardiovascular disease Gout, unspecified Dyslipidemia Benign hypertension Adult onset hypothyroidism GERD (gastroesophageal reflux disease) COPD (chronic obstructive pulmonary disease) Surgical History History of cataract surgery Sep.02 History of vascular surgery 05/2019 Family History Son Diabetes Father , AT 85 No problems noted. Mother , AT AGE 70 Brain tumor Social History Smoking and tobacco/nicotine status: former use of tobacco/nicotine Second hand smoke exposure: No Alcohol intake: former Substance/Drug Use: never Adopted: No Caregiver/support person: No Lives independently: Yes Household members: spouse Housing: House Marital status: service: No Current occupational status: retired Current occupational exposures/hazards: No Do you think of yourself as: Straight/Heterosexual Current gender identity: Male Physical Exam 2 Const: COMMON NORMALS: no acute distress, average body habitus, patient oriented x3, no limitations, healthy appearing, alert and well nourished HENMT: COMMON NORMALS: normocephalic, atraumatic, hearing grossly normal bilaterally, external ears normal, Normal external nose present and moist oral mucous membranes HEAD & SCALP: normocephalic and atraumatic NOSE: Normal external nose present EXTERNAL EAR: Yes external ears normal Neck/C-Spine: COMMON NORMALS: no JVD Chest: COMMONS NORMALS: normal inspection of the chest and normal palpation of entire chest wall Resp: COMMON NORMALS: normal respiratory effort, No retractions and No use of accessory muscles; negative for clear to auscultation bilaterally (Diffuse rhonchi bilaterally) AUSCULTATION: not clear to auscultation bilaterally (Diffuse rhonchi bilaterally) Cardio: COMMON NORMALS: no JVD, regular rate, regular rhythm, S1 normal heart sound present, S2 normal heart sound present, No gallops present (Cardio), No clicks present (Cardio), No murmurs present (Cardio) and No rub (Cardio) R ATE: regular rate RHYTHM: regular rhythm HEART SOUNDS: S1 normal heart sound present and S2 normal heart sound present GI: COMMON NORMALS: Normal to inspection, nondistended, normoactive bowel sounds present, Soft to palpation, non-tender, No hepatosplenomegaly present and no masses PALPATION: Yes Soft to palpation and Yes No hepatosplenomegaly present Neuro: COMMON NORMALS: patient oriented x3 SENSORIUM/ORIENTATION: Yes alert Course 2 Vital Signs: Vital signs: Vital Signs Temperature 97.8 F 10/21/24 22:59 Pulse Rate 144 H 09/18/24 00:30 Respiratory Rate 23 H 09/18/24 00:30 Blood Pressure 170/91 09/18/24 00:30 Pulse Oximetry 91 09/18/24 00:30 Oxygen Delivery Me thod Room Air 09/18/24 00:30 Oxygen Flow Rate 6 09/17/24 23:12 MDM - SOB/Dyspnea Medical Decision Making Due to increasing white count and CT scan that is the same or worse. We will place the patient in observation for outpatient failure pneumonia. Dr. Escobar was consulted who agreed with this we will give him a dose of Zosyn. Medical Records I reviewed the patient's medical records. Lab Data I reviewed the patient's lab results. 09/17/24 22:30 09/17/24 22:30 Labs/Radiology: Radiology Impressions Chest CTA 09/17/24 22:38 IMPRESSION: 1. No pulmonary emboli. 2. Peripheral consolidations in the right lung base redemonstrated and similar with new masslike consolidations in the anterolateral aspect of the left lower lobe and periphery of the right middle lobe. Findings are thought likely infectious in etiology given the rapid progression. 3. Bronchial wall thickening with bronchiolectasis and mucous plugging in the lung bases, right middle lobe and lingula which are similar to the prior examination. Laboratory Results WBC 19.57 10^3/uL (3.29-11.43) H 09/17/24 22:30 RBC 4.80 10^6/uL (3.85-5.65) 09/17/24 22:30 Hgb 13.70 g/dL (11.27-16.99) 09/17/24 22:30 Hct 44.7 % (37-53) 09/17/24 22:30 MCV 93.1 fl (82-101) 09/17/24 22:30 MCH 28.5 pg (27-33) 09/17/24 22:30 MCHC 30.6 g/dL (30-55) 09/17/24 22:30 RDW 13.9 % (12.1-15.1) 09/17/24 22:30 Plt Count 277 10^3/cmm (157-399) 09/17/24 22:30 MPV 9.8 fL (7.4-10.4) 09/17/24 22:30 Neut % (Auto) 86.3 % 09/17/24 22:30 Lymph % (Auto) 8.0 % 09/17/24 22:30 [place] % (Auto) 4.6 % 09/17/24 22:30 Eos % (Auto) 0.1 % 09/17/24 22:30 Baso % (Auto) 0.2 % 09/17/24 22:30 Neut # (Auto) 16.89 10^3/uL (1.8-7.7) H 09/17/24 22:30 Lymph # (Auto) 1.6 10^3/uL (0.8-4.8) 09/17/24 22:30 [place] # (Auto) 0.9 10^3/uL (0.2-0.9) 09/17/24 22:30 Eos # (Auto) 0.0 10^3/uL (0.0-0.8) 09/17/24 22: Baso # (Auto) 0.0 10^3/uL (0.0-0.1) 09/17/24:30 Nucleated RBC % (auto) 0 % 09/17/24: Nucleated RBCs # 0.0 /100WBC 09/17/24 22:30 Sodium 134 mmol/L (136-145) L 09/17/24 22:30 Potassium 4.9 mmol/L (3.5-5.1) 09/17/24 22:30 Chloride 94 mmol/L (98-107) L 09/17/24 22:30 Carbon Dioxide 28 mmol/L (22-29) 09/17/24 22:30 Anion Gap 16.9 (5-19) 09/17/24 22:30 BUN 24 mg/dL (8-23) H 09/17/24 22:30 Creatinine 1.0 mg/dL (0.7-1.2) 09/17/24 22:30 GFR Calculation Not Reportable 09/17/24: Glucose 245 mg/dL (65-115) H 09/17/24 22:30 Calculated Osmolality 290 mOsm/kg (285-295) 09/17/24 22:30 Lactic Acid 2.1 mmol/L (0.5-2.2) 09/17/24 22:30 Lactic Acid (Sepsis) 1.5 mmol/L (0.5-2.2) 09/18/24 00:24 Calcium 8.5 mg/dL (8.5-10.5) 09/17/24 22:30 Total Bilirubin 0.5 mg/dL (0.15-1.2) 09/17/24 22:30 AST 16 U/L (0-40) 09/17/24 22:30 ALT 11 U/L (0-41) 09/17/24 22:30 Alkaline Phosphatase 86 U/L (40-130) 09/17/24 22:30 Troponin T Baseline 34 ng/L (0-15) H 09/17/24 22:30 Troponin T 120 Minute 33.84 ng/L (0-15) H 09/18/24 00:24 Delta Troponin T -0.16 ABS# (0-10) L 09/18/24 00:24 Total Protein 6.1 g/dL (6.6-8.7) L 09/17/24 22:30 Albumin 3.2 g/dL (3.5-5.2) L 09/17/24 22:30 Globulin 2.9 g/dL (1.3-4.6) 09/17/24 22:30 Procalcitonin 0.41 ng/mL (0-0.5) 09/17/24 22:30 Coronavirus (PCR) Negative (Negative) 09/17/24 22:48 Influenza A (PCR) Negative (Negative) 09/17/24 22:48 Influenza Type B (PCR) Negative (Negative) 09/17/24 22:48 RSV (PCR) Negative (Negative) 09/17/24 22:48 All radiology interpretation(s) finalized by discharge Discharge Plan Discharge Patient Disposition: Placed in Observation Clinical Impression: COPD (chronic obstructive pulmonary disease) Right lower lobe pneumonia Qualifiers: Pneumonia type: due to unspecified organism Qualified Code(s): J18.9 - Pneumonia, unspecified organism Coding Level of Care Code ED Medical Scientific Officer for Sheldon Rodriguez
[2024-09-17 22:47] LABS: Basophils % 0.2 %; Eosinophils % 0.1 %; Hematocrit 44.7 % (37-53); Lymphocytes # 1.6 10^3/uL (0.8-4.8); Mean Corpuscular HGB Conc 30.6 g/dL (30-55); Mean Corpuscular Hemoglobin 28.5 pg (27-33); Mean Corpuscular Volume 93.1 fl (82-101); Mean Platelet Volume 9.8 fL (7.4-10.4); Monocytes # 0.9 10^3/uL (0.2-0.9); Monocytes % 4.6 %; Neutrophils # 16.89 10^3/uL (1.8-7.7); Neutrophils % 86.3 %; Nucleated Red Blood Cells % 0 %; Platelet Count 277 10^3/cmm (157-399); Red Cell Distribution Width 13.9 % (12.1-15.1); White Blood Count 19.57 10^3/uL (3.29-11.43)
[2024-09-17 22:59] VITALS: BP 141/63; PULSE 87; RESP 30; TEMP 36.6; O2SAT 93; BMI 25.4
[2024-09-17 23:02] LABS: Troponin(5th) Baseline 34 ng/L (0-15)
[2024-09-17 23:04] LABS: Alanine Aminotransferase 11 U/L (0-41); Albumin Level 3.2 g/dL (3.5-5.2); Alkaline Phosphatase 86 U/L (40-130); Aspartate Amino Transferase 16 U/L (0-40); Blood Urea Nitrogen 24 mg/dL (8-23); Calcium 8.5 mg/dL (8.5-10.5); Carbon Dioxide 28 mmol/L (22-29); Chloride 94 mmol/L (98-107); Globulin 2.9 g/dL (1.3-4.6); Glucose 245 mg/dL (65-115); Osmolality Calculated 290 mOsm/kg (285-295); Sodium 134 mmol/L (136-145); Total Bilirubin 0.5 mg/dL (0.15-1.2); Total Protein 6.1 g/dL (6.6-8.7)
[2024-09-17 23:05] LABS: Lactic Sepsis W/Reflex 2.1 mmol/L (0.5-2.2)
[2024-09-17 23:07] LABS: Anion Gap 16.9 (5-19); Potassium 4.9 mmol/L (3.5-5.1)
[2024-09-17 23:11] LABS: Procalcitonin 0.41 ng/mL (0-0.5)
[2024-09-17 23:12] VITALS: BP 141/63; PULSE 129; RESP 23; O2SAT 93
[2024-09-17] MEDS: iohexol 350 mg/mL 500 mL Btl (per mL) IV (23:28)
[2024-09-17 23:31] LABS: Covid PCR NEGATIVE (Negative); Influenza A NEGATIVE (Negative); Influenza B NEGATIVE (Negative); Respiratory Syncytial Virus Ce NEGATIVE (Negative)
[2024-09-17 23:36] VITALS: PULSE 115; RESP 22; O2SAT 93
[2024-09-18] VITALS (26 sets, daily range): BP systolic 117–170; BP diastolic 56–100; PULSE 84–144; RESP 16–32; TEMP 36.6–37; O2SAT 91–96; BMI 23.1
[2024-09-18 00:31] LABS: Reflex Lactate Order REFLEX LACTIC ORDERD
--- NOTE | 2024-09-18 00:39 | ECG_ITS ---
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
[2024-09-18 00:49] LABS: Troponin 5 2HR 33.84 ng/L (0-15)
[2024-09-18 00:51] LABS: Lactic Acid level (Lactate) 1.5 mmol/L (0.5-2.2); Troponin 5 2HR Delta -0.16 ABS# (0-10)
[2024-09-18] MEDS: piperacillin-tazobactam 3.375 GM in sodium chloride 0.9% (plus) 50 ML IV (02:12)
--- NOTE | 2024-09-18 04:13 | P.HP_ITS ---
Providers/Chief Complaint 2 Primary Care Provider: OTIS Mead Chief Complaint: SOB History of Present Illness Dl Ness is a 83 year old male with a past medical history significant for COPD, type 2 diabetes mellitus, gout, dyslipidemia, hypertension, GERD, and multiple other comorbidities who presents to the emergency department with worsening shortness of breath and cough. Patient reports onset a couple months ago with symptoms rapidly worsening in the past week. He was seen in the emergency department on 09/09 with similar complaints. At that time he was diagnosed with acute right lower lobe pneumonia in the setting of severe chronic bronchiectasis. He was prescribed cefdinir and prednisone. Patient reports despite taking these medications symptoms continued to worsen. He endorses associated cough which he describes as productive. Reports exertion worsens symptoms. Rest improves. Endorses associated generalized fatigue, malaise, and poor oral intake. He reports he typically wears 2 L of oxygen as needed. For the last week or so, he has worn it continuously. In the emergency department, patient was found to be tachypneic and required 6 L of oxygen. Upon my evaluation oxygen have been down titrated to 4 L. He was noted to be significantly tachycardic with heart rate of 144. Labs revealed worsening leukocytosis to 19.57, previously 12. COVID-19, influenza, and RSV were negative. Repeat CT imaging redemonstrated peripheral consolidation in the right lung base with new masslike consolidations in the anterior lateral aspects of the left lower lobe at the periphery of the right middle lobe suspected to be infectious given the rapid progression from the CT scan 8 days prior. Bilateral bronchiectasis with bronchial wall thickening and mucous plugging redemonstrated. Review of Systems 2 Narrative: A complete review of systems was obtained and is negative except as stated in HPI. Medications/Allergies Home Medications Medication Instructions Recorded Confirmed Last Taken Type Disp Neb Kit W/mouthpc T& 7 Tubing #1 ea 01/08/21 08/21/24 Unknown Rx ergocalciferol (vitamin D2) 50 mcg 50 mcg PO DAILY 01/25/22 08/21/24 12/29/22 History (2,000 unit) capsule multivitamin 1 tab PO DAILY 01/25/22 08/21/24 12/29/22 History vit A 300 mcg-C 200 mg-E 27 1 tab PO DAILY 01/25/22 08/21/24 12/29/22 History mg-lutein 2 mg and minerals tablet (Vision Formula (with lutein)) cyanocobalamin (vitamin B-12) 2,500 mcg sublingual DAILY 12/29/22 08/21/24 12/29/22 History 2,500 mcg sublingual tablet (Vitamin B-12) albuterol sulfate 2.5 mg/3 mL 2.5 mg (3 mL) inhalation Q4H PRN 08/08/24 08/21/24 Unknown Rx (0.083 %) solution for nebulization shortness of breath or wheezing 30 days #300 mL albuterol sulfate 90 mcg/actuation 2 puff inhalation Q4H PRN 08/08/24 08/21/24 Unknown Rx aerosol inhaler (Ventolin HFA) shortness of breath or wheezing 30 days #6.7 grams allopurinol 300 mg tablet 300 mg PO QDAY 30 days #30 tabs 08/08/24 08/21/24 Unknown Rx aspirin 81 mg tablet,delayed 81 mg PO QDAY 30 days #30 tabs 08/08/24 08/21/24 Unknown Rx release (Adult Low Dose Aspirin) atorvastatin 20 mg tablet 20 mg PO QDAY 30 days #30 tabs 08/08/24 08/21/24 Unknown Rx clopidogrel 75 mg tablet (Plavix) 75 mg PO QDAY 30 days #30 tabs 08/08/24 08/21/24 Unknown Rx empagliflozin 25 mg tablet 25 mg PO QAM #30 tabs 08/08/24 08/21/24 Unknown Rx (Jardiance) fluticasone fur. 100 mcg-umeclid 1 inh inhalation QDAY 30 days #28 08/08/24 08/21/24 Unknown Rx 62.5 mcg-vilant 25 mcg ea inhalat.powder (Trelegy Ellipta) glipizide 2.5 mg tablet, extended 2.5 mg PO QDAY 30 days #30 tabs 08/08/24 08/21/24 Unknown Rx release 24 hr guaifenesin 600 mg tablet, 600 mg PO BID 30 days #60 tabs 08/08/24 08/21/24 Unknown Rx extended release 12 hr (Mucinex) levothyroxine 75 mcg tablet 75 mcg PO QDAY 30 days #30 tabs 08/08/24 08/21/24 Unknown Rx (Synthroid) losartan 100 mg tablet 100 mg PO QDAY 30 days #30 tabs 08/08/24 08/21/24 Unknown Rx metformin 500 mg tablet 500 mg PO BID 30 days #60 tabs 08/08/24 08/21/24 Unknown Rx pantoprazole 20 mg tablet,delayed 20 mg PO DAILY #30 tabs 08/08/24 08/21/24 Unknown Rx release evolocumab 140 mg/mL subcutaneous 140 mg SUBCUT .every 14 day #2 mL 08/21/24 08/21/24 Unknown Rx pen injector (Alta Pettit) promethazine-DM 6.25 mg-15 mg/5 mL 5 ml PO Q6H PRN cough #120 mL 08/21/24 08/21/24 Unknown Rx oral syrup cefdinir 300 mg capsule 300 mg PO BID 10 days #20 caps 09/09/24 Unknown Rx prednisone 50 mg tablet 50 mg PO DAILY #5 tabs 09/09/24 Unknown Rx Allergies Allergy/AdvReac Type Severity Reaction Status Date / Time No Known Allergies Allergy Verified 09/09/24 14:02 PFSH Acute 2 PFSH: Medical History Diabetes mellitus with hyperglycemia, without long-term current use of insulin Phimosis Low serum iron B12 deficiency Cardiovascular disease Gout, unspecified Dyslipidemia Benign hypertension Adult onset hypothyroidism GERD (gastroesophageal reflux disease) COPD (chronic obstructive pulmonary disease) Surgical History History of cataract surgery Sep.02 History of vascular surgery 05/2019 Family History Son Diabetes Father , AT 85 No problems noted. Mother , AT AGE 70 Brain tumor Social History Smoking and tobacco/nicotine status: former use of tobacco/nicotine Second hand smoke exposure: No Alcohol intake: former Substance/Drug Use: never Adopted: No Caregiver/support person: No Lives independently: Yes Household members: spouse Housing: House Marital status: service: No Current occupational status: retired Current occupational exposures/hazards: No Do you think of yourself as: Straight/Heterosexual Current gender identity: Male Vitals/I&O/Wt Last Vital Signs Temp 97.8 F 09/17/24 22:59 Pulse 144 H 09/18/24 00:30 Resp 23 H 09/18/24 00:30 BP 170/91 09/18/24 00:30 Pulse Ox 91 09/18/24 00:30 O2 Del Method Room Air 09/18/24 00:30 O2 Flow Rate 6 09/17/24 23:12 Weight last 48 hrs Weight 78.018 kg Physical Exam 2 Narrative: General: Patient is awake. Acutely ill-appearing. Head: Normocephalic. Neck: No JVD. Cardiovascular: No gallops. No murmurs. No peripheral edema. Dry mucous membranes. Tachycardic. Lungs: Bibasilar rhonchi. Faint end expiratory wheezing. Conversational dyspnea. Tachypnea noted. Increased work of breathing. Skin: No jaundice. No rashes. Abdomen: Normal bowel sounds, abdomen soft and nontender. Genito Urinary: Genital exam not performed since complaints not related. Rectal: Rectal exam not performed since no symptoms indicated blood loss. Extremities: No cyanosis or clubbing. Musculoskeletal: No swollen or erythematous joints. Neurological: Moves all 4 extremities. No myoclonus. Data 09/17/24 22:30 09/17/24 22:30 Micro: Microbiology 09/17/24 23:53 Blood Culture - Preliminary Blood SPECIMEN COLLECTED 09/17/24 23:49 Blood Culture - Preliminary Blood SPECIMEN COLLECTED A&P Assessment and plan (1) Severe sepsis: Severe sepsis secondary to bilateral pneumonia SIRS: Tachycardia, leukocytosis, tachypnea Endorgan damage: Acute on chronic hypoxic respiratory failure IV fluid resuscitation with 30 mL/kg body weight normal saline Start broad-spectrum antibiotics with vancomycin and meropenem MRSA screen Telemetry Strict I's and O's Daily weights Supportive care (2) Pneumonia: Bilateral community-acquired pneumonia, failing oral antibiotics with cefdinir Start broad-spectrum antibiotics as noted above with meropenem/vancomycin Bacterial antigens requested Sputum culture pending Encourage pulmonary toilet (3) COPD (chronic obstructive pulmonary disease): Acute COPD exacerbation with acute on chronic hypoxic respiratory failure Start budesonide nebs Start scheduled albuterol nebs Treat underlying pneumonia sepsis as noted above Supplemental oxygen support RT eval and treat Qualifiers: COPD type: emphysema Emphysema type: unspecified Qualified Code(s): J 43.9 - Emphysema, unspecified (4) Dyslipidemia: Continue statin (5) Benign hypertension: Continue ARB (6) Arteriosclerosis: Continue dual antiplatelet therapy with aspirin and Plavix Continue statin (7) Diabetes mellitus with hyperglycemia, without long-term current use of insulin: Hold home glipizide and metformin Monitor for hyperglycemia in the setting of IV steroid use Start moderate scale sliding scale insulin correction Qualifiers: Diabetes mellitus type: type 2 Qualified Code(s): E11.65 - Type 2 diabetes mellitus with hyperglycemia (8) GERD (gastroesophageal reflux disease): Continue PPI Qualifiers: Esophagitis presence: without esophagitis Qualified Code(s): K21.9 - Gastro-esophageal reflux disease without esophagitis Plan DVT prophylaxis: Lovenox CODE STATUS: Full code Attestations 2 Medical Necessity Statement*: The patient presents with worsening pulmonary symptoms, found to have worsening bilateral community-acquired complicated by severe sepsis in the setting of failing outpatient treatment with oral antibiotics for which patient will be admitted for observation for IV antibiotics, cultures, IV fluid resuscitation, and telemetry with expected hospitalization not to cross 2 midnights. Coding Level of Care Code [facility] Diagnoses Severe sepsis A41.9; R65.20 Pneumonia J18.9 Pulmonary emphysema, unspecified emphysema type J43.9 COPD type: emphysema Emphysema type: unspecified Dyslipidemia E78.5 Benign hypertension I10 Arteriosclerosis I70.90 Type 2 diabetes mellitus with hyperglycemia, without long-term current use of insulin E11.65 Diabetes mellitus type: type 2 Gastroesophageal reflux disease without esophagitis K21.9 Esophagitis presence: without esophagitis
--- NOTE | 2024-09-18 04:41 | ECG_ITS ---
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
[2024-09-18 05:16] LABS: Troponin 5 6HR 35.75 ng/L (0-15); Troponin 5 6HR Delta 1.75 ng/L (0-12)
--- NOTE | 2024-09-18 06:44 | PHA.VACGOAL ---
Vancomycin Goal - Goal Vancomycin Goal:: 15-20 mg/L Vancomycin Indication:: Pneumonia - Therapy Current therapy:: Meropenem Day of therpy:: Day [1]of [] . Actual body weight (kg): 70.851 kg - Data Labs: WBC 19.57 10^3/uL (3.29-11.43) H 09/17/24 22:30 RBC 4.80 10^6/uL (3.85-5.65) 09/17/24 22:30 Hgb 13.70 g/dL (11.27-16.99) 09/17/24 22:30 Hct 44.7 % (37-53) 09/17/24 22: MCV 93.1 fl (82-101) 09/17/24 22: MCH 28.5 pg (27-33) 09/17/24 22: MCHC 30.6 g/dL (30-55) 09/17/24 22:30 RDW 13.9 % (12.1-15.1) 09/17/24 22:30 Sodium 134 mmol/L (136-145) L 09/17/24 22:30 Potassium 4.9 mmol/L (3.5-5.1) 09/17/24 22:30 Chloride 94 mmol/L (98-107) L 09/17/24 22:30 Carbon Dioxide 28 mmol/L (22-29) 09/17/24 22:30 Anion Gap 16.9 (5-19) 09/17/24 22:30 BUN 24 mg/dL (8-23) H 09/17/24 22:30 Creatinine 1.0 mg/dL (0.7-1.2) 09/17/24 22:30 GFR Calculation Not Reportable 09/17/24 22:30 Treatment plan:: new consult Regimen:: Patient is a new start of vancomycin for severe sepsis/pneumonia. 2000 mg load dose ordered and 500 mg q12h maintenance dose started based on population based Pharmacokinetic Nomogram. Pharmacy will continue to monitor daily.
[2024-09-18] MEDS: cetylpyridinium Lozenge 1 EACH MUCOUS MEM (06:51)
[2024-09-18] MEDS: methylPREDNISolone sod succ 40 mg/mL INJ IVP ×3 (06:51→17:16)
[2024-09-18] MEDS: meropenem 1,000 mg SDV 1000 MG IVP ×3 (06:51→22:03)
[2024-09-18] MEDS: vancomycin 2,000 MG/400 ML PIGGYBACK 200 MG IV (06:53)
[2024-09-18] MEDS: sodium chloride 0.9% 1,000 ML 250 ML IV (06:54)
[2024-09-18 07:07] LABS: Glucose Point of Care 149 mg/dL (70-110)
[2024-09-18] MEDS: budesonide 0.5 mg/2 mL Neb INHALATION ×2 (07:59→19:58)
[2024-09-18] MEDS: albuterol 2.5 mg/3 mL Neb INHALATION ×5 (07:59→23:04)
[2024-09-18 08:07] LABS: MRSA PCR OZH (swab) NOT DETECTED (Negative)
[2024-09-18] MEDS: insulin lispro 100 unit/1 mL SUBCUT ×3 (08:26→21:29)
[2024-09-18] MEDS: losartan 50 mg Tablet 100 MG PO (08:27)
[2024-09-18] MEDS: allopurinol 300 mg Tablet PO (08:27)
[2024-09-18] MEDS: pantoprazole DR 40 mg Tablet 20 MG PO (08:27)
[2024-09-18] MEDS: atorvastatin 40 mg Tablet 20 MG PO (08:27)
[2024-09-18] MEDS: guaiFENesin 600 mg Tablet PO ×2 (08:27→17:16)
[2024-09-18] MEDS: clopidogrel 75 mg Tablet PO (08:28)
[2024-09-18] MEDS: levothyroxine 75 mcg Tablet PO (08:28)
[2024-09-18] MEDS: aspirin 81 mg EC Tablet PO (08:28)
[2024-09-18 08:42] LABS: ABG PCO2 48.4 mmHg (35-45); ABG PH Result 7.34 (7.35-7.45); Base Excess ABG 0.1 mmol/L (-2.0-2.0); Blood Gas Allen Test Pos; Blood Gas Operator Identificat MONRO; Blood Gas Sample Site Brachial, left; Blood Gas Sample Type Arterial; Carboxyhemoglobin 0.8 %THgb (0.4-20.1); HCO3 ABG 26.4 mmol/L (22-26); HGB O2 Sat 90.6 % (95-100); Ionized Calcium Level - ABG 1.2 mmol/L (1.1-1.4); Methemoglobin < 0.0 % (0.4-1.5); Oxygen Device NC; Oxygen Saturation ABG 90.8; PO2 FiO2 Ratio Arterial Blood 140; Potassium Level - ABG 4.5 mmol/L (3.5-5.0); Total Hemoglobin 13.1 g/dL (14-18)
--- NOTE | 2024-09-18 11:24 | W.PM.EVENTAC ---
Event Note Event Note: Progressive distress patient was put on BiPAP ABG requested which showed relative hypoxia and mild hypercapnia Patient endorsed feeling better on BiPAP He is still tachypneic He has rhonchi on auscultation Currently awake and alert No active chest pain Stating that he lives with his Uses 2 L of oxygen at home CT scan showing mucous plug, added Mucomyst, chest physiotherapy along DuoNeb and BiPAP therapy He can get a break from BiPAP for his lunch Continue IV steroids He will need another CT scan in next 3 months to follow-up on his dense consolidation Continue broad-spectrum antibiotics
[2024-09-18] MEDS: acetylcysteine 200 mg/mL MDV 10 mL INHALATION ×4 (11:31→23:03)
[2024-09-18 11:42] LABS: Glucose Point of Care 161 mg/dL (70-110)
[2024-09-18 16:36] LABS: Glucose Point of Care 137 mg/dL (70-110)
[2024-09-18] MEDS: vancomycin 500 MG in sodium chloride 0.9% (plus) 100 ML 200 MG IV (21:28)
[2024-09-18 21:29] LABS: Glucose Point of Care 312 mg/dL (70-110)
[2024-09-19] VITALS (17 sets, daily range): BP systolic 107–155; BP diastolic 55–76; PULSE 106–125; RESP 16–22; TEMP 36.6–37.2; O2SAT 90–96
[2024-09-19] MEDS: methylPREDNISolone sod succ 40 mg/mL INJ IVP ×4 (00:17→21:27)
[2024-09-19] MEDS: albuterol 2.5 mg/3 mL Neb INHALATION ×4 (03:19→15:29)
[2024-09-19] MEDS: acetylcysteine 200 mg/mL MDV 10 mL INHALATION ×5 (03:19→21:51)
[2024-09-19 03:49] LABS: ABG PCO2 42.7 mmHg (35-45); ABG PH Result 7.42 (7.35-7.45); Arterial Blood Gas Hematocrit 38.6 % (42-52); Blood Gas Allen Test Pos; Blood Gas Operator Identificat ED; Blood Gas Sample Site Radial, left; Blood Gas Sample Type Arterial; HCO3 ABG 27.8 mmol/L (22-26); Oxygen Device NC; PO2 ABG 65.1 mmHg (80.0-100.0); PO2 FiO2 Ratio Arterial Blood 162
[2024-09-19 06:05] LABS: Basophils # 0.1 10^3/uL (0.0-0.1); Basophils % 0.2 %; Hematocrit 38.5 % (37-53); Lymphocytes # 0.3 10^3/uL (0.8-4.8); Lymphocytes % 1.1 %; Mean Corpuscular HGB Conc 31.9 g/dL (30-55); Mean Corpuscular Volume 90.8 fl (82-101); Mean Platelet Volume 10.3 fL (7.4-10.4); Monocytes # 0.5 10^3/uL (0.2-0.9); Monocytes % 1.6 %; Neutrophils # 29.93 10^3/uL (1.8-7.7); Nucleated Red Blood Cells % 0 %; Platelet Count 269 10^3/cmm (157-399); Red Blood Count 4.24 10^6/uL (3.85-5.65); Red Cell Distribution Width 13.9 % (12.1-15.1)
[2024-09-19 06:21] LABS: Glucose Point of Care 206 mg/dL (70-110)
[2024-09-19 06:25] LABS: Anion Gap 18.1 (5-19); Blood Urea Nitrogen 30 mg/dL (8-23); Calcium 8.6 mg/dL (8.5-10.5); Carbon Dioxide 26 mmol/L (22-29); Chloride 95 mmol/L (98-107); Creatinine Clr Calc Pharmacy 50.8348; Glucose 169 mg/dL (65-115); Osmolality Calculated 290 mOsm/kg (285-295); Phosphorus 3.5 mg/dL (2.5-4.5); Potassium 4.1 mmol/L (3.5-5.1); Sodium 135 mmol/L (136-145)
[2024-09-19] MEDS: meropenem 1,000 mg SDV 1000 MG IVP ×3 (06:25→22:03)
[2024-09-19 06:47] LABS: Slide Review Slide Review Perform; White Blood Count 31.13 10^3/uL (3.29-11.43)
[2024-09-19] MEDS: budesonide 0.5 mg/2 mL Neb INHALATION ×2 (08:10→21:50)
--- OUTSIDE RECORDS SUMMARY | 2024-09-19 08:34 | XMS_ITS ---
Author Name Unknown Organization [facility] Address [address] [place] [address] Care Team Providers Care Computing Consultant Name Role Phone Bry Diamond Primary Care Provider Results Component Value Reference Range Notes EGD w [id number] Reviewed date:10/06/2023 01:29:20 PM Interpretation: Performing Lab: Notes/Report: REASON FOR VISIT EGD Encounters Encounter Location Date Provider Diagnosis [address] [address] 08/10/2023 Bry Diamond Dysphagia, unspecified type R13.10 and Gastritis without bleeding, unspecified chronicity, unspecified gastritis type K29.70 Assessments Encounter Date Diagnosis (ICD Code) Assessment Notes Treatment Notes Treatment Clinical Notes 08/10/2023 Dysphagia, unspecified type (ICD-10 - R13.10) 08/10/2023 Gastritis without bleeding, unspecified chronicity, unspecified gastritis type (ICD-10 - K29.70) 08/10/2023 Other see scanned document from [facility] in patients documents. Plan Of Treatment Treatment Notes Assessment Notes Other see scanned document from [facility] in patients documents. Progress Notes * NICHOLAS PARTHDOB:1940 ( 82 yo M)Acc No.[id number]:08/10/2023 Progress Notes Patient:?PARTH PETERSON Provider:?Bry Diamond MD :1940???Age:82 Y???Sex:Male Monster e:08/10/2023 Address:[address] [place], [place] [phone] Subjective: * Chief Complaints: * ???1. EGD. * HPI: ???::? see scanned document from [facility] in patients documents. * ROS:?see scanned document from [facility] in patients documents. * Medical History:? Objective: * Examination: ???Examination: ???see scanned document from [facility] in patients documents. ??? Assessment: * Assessment: 1.?Dysphagia, unspecified ty pe - R13.10 (Primary)?2.?Gastritis without bleeding, unspecified chronicity, unspecified gastritis type - K29.70? Plan: * Treatment: 2.?Gastritis without bleedin g, unspecified chronicity, unspecified gastritis type?Imaging: EGD w [id number].?Others? Notes: see scanned document from [facility] in patients documents.?? * Procedure Codes:?10185 UPPER GI ENDOSCOPY, BIOPSY * Billing Information: * Visit Code:? * Procedure Codes:? 90932 UPPER GI ENDOSCOPY, BIOPSY. Care Plan Details* * ID DERIVATIVES TRADER Sign off status: Completed true * Provider:?Bry Diamond MD Monster e:?08/10/2023 Generated for Yessica medrano/Paige/Binaitting on:?09/19/2024 08:34 AM CDT
--- OUTSIDE RECORDS SUMMARY | 2024-09-19 08:34 | XMS_ITS ---
Author Name Unknown Organization [facility] Address [address] [place] [address] Care Team Providers Care Automobile Locator Name Role Phone Bry Diamond Primary Care Provider REASON FOR VISIT EGD F/U Medications Medication SIG (Take, Route, Frequency, Duration) Notes Start Date End Date Status Levothyroxine Sodium 75 MCG 1 tablet in the morning on an empty stomach Orally Once a day Active Losartan Potassium 100 MG 1 tablet Orall y Once a day Active Allopurinol 300 MG 1 tablet Orally Once a day Active Ferrous Gluconate 324 MG 1 tablet with w ater or juice between meals Orally Once a day Active metFORMIN HCl 500 MG 1 tablet with a reyna l Orally Once a day Active Vitamin D3 50 MCG (1999) 1 capsule Or ally Once a day Active Vision Formula Eye Health - as directed Orally Active Trelegy Ellipta 100-62.5-25 MCG/INH 1 puff Inhalation Once a day Active glipiZIDE ER 2.5 MG 1 tablet with breakf ast Orally Once a day Active Atorvastatin Calcium 20 MG 1 tablet Oral ly Once a day Active Ventolin HFA 90 MCG/ACT 1 puff as needed Inhalation every 4 hrs Active Aspirin EC 81 MG 1 tablet Orally Once a day Active Roflumilast 250 MCG 2 tablets Orally Onc e a day Active Mucinex 600 MG 1 tablet as needed Orally every 12 hrs Active Pantoprazole Sodium 40 mg 1 tablet Orall y BID for 60 days Active Clopidogrel Bisulfate 75 MG 1 tablet Ora lly Once a day Active Jardiance 10 MG 1 tablet Orally Once a day Active Social History Tobacco Use: Social History Observation Description Date Details (start date - stop date) Former Smoker NA - NA xTobacco Use/Smoking Question Answer Notes Are you a former smoker How long has it been since you last smoked? 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) Active confirmed Problem 32927580 Esophageal dysphagia (R13.19) Active confirmed Vital Signs Temperature 97.8 degrees Fahrenheit 08/24/20 23 Blood pressure systolic 125 mm Hg 08/24/20 23 Blood pressure diastolic 70 mm Hg 023 Heart Rate 87 /min 08/24/2023 Height 69 in 08/24/2023 Weight 164 lbs 08/24/2023 BMI 24.22 kg/m2 08/24/2023 Oximetry 94 % 08/24/2023 Height-cm 175.26 cm 08/24/2023 Weight-kg 74.39 kg 08/24/2023 Encounters Encounter Location Date Provider Diagnosis [facility] [address] [place] [phone] 08/24/2023 Bry Diamond Gastro-esophageal reflux disease without esophagitis K21.9 ; Chronic superficial gastritis with bleeding K29.31 and Esophageal dysphagia R13.19 Assessments Encounter Date Diagnosis (ICD Code) Assessment Notes Treat ment Notes Treatment Clinical Notes 08/24/2023 Gastro-esophageal reflux disease without esophagitis (ICD-10 - K21.9) 08/24/2023 Chronic superficial gastritis with bleeding (ICD-10 - K29.31) 08/24/2023 Esophageal dysphagia (ICD-10 - R13.19) Plan Of Treatment Medication Medication Name Sig Start Date Stop Date Notes Pantoprazole Sodium 40 mg 1 tablet Orally BID for 60 days Next Appt Details Follow Up: 4 Weeks, Reason: Progress Notes * PARTH PETERSONDOB:1940 ( 82 yo M)Acc No.[id number]:08/24/2023 Progress Notes Patient:?PARTH PETERSON Provider:?Bry Diamond MD :1940???Age:82 Y???Sex:Male Monster e:08/24/2023 Address:[address] [place], [place] [phone] 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 EGD F/U. * HPI: ???::? EGD follow up. He had severe gastritis on his EGD. He thinks he is doing better, but he ran out of the protonix. * ROS:?General/Constitutional:?Patient denies?fatigue , fever , night sweats.?Hematology:?Patient denies?easy bruising , bleeding problems , recent transfusion.?Respiratory:?Patient denies?cough , shortness of breath , wheezing.?Cardiovascular:?Patient denies?chest pain , irregular heartbeat , swelling in hands/feet.?Gastrointestinal:?Patient denies?abdominal pain, bloating , constipation , diarrhea , heartburn , blood in stool , nausea , vomiting.?ENT:?Patient denies?ear pain , nosebleed, runny nose,?sore throat.?Genitourinary:?Patient denies?painful urination , blood in the urine , difficulty urinating.?Musculoskeletal:?Patient denies?arthritis\arthralgia , back pain , joint stiffness , muscle aches.?Skin:?Patient denies?skin lesion(s) , rash , acne.?Neurologic:?Patient denies?dizziness , fainting , headache , memory loss , seizures.?Psychiatric:?Patient denies?anxiety , depressed mood , difficulty sleeping , suicidal thoughts.?GERD. * Medical History:?Stroke. * Surgical History:?Stent neck 2018, EGD 2022. * Family History:?Father: dece ased.?Mother: .? * Social History:?Tobacco Use:?Tobacco Use/Smoking?Are you a?former smoker ?How long has it been since you last smoked??> 10 years * Medications:?Taking Roflumil ast 250 MCG Tablet 2 tablets Orally Once a day, Taking Ventolin HFA 90 MCG/ACT Aerosol Solution 1 puff as needed Inhalation every 4 hrs, Taking Trelegy Ellipta 100-62.5-25 MCG/INH Aerosol Powder Breath Activated 1 puff Inhalation Once a day, Taking metFORMIN HCl 500 MG Tablet 1 tablet with a meal Orally Once a day, Taking Levothyroxine Sodium 75 MCG Tablet 1 tablet in the morning on an empty stomach Orally Once a day, Taking Allopurinol 300 MG Tablet 1 tablet Orally Once a day, Taking Losartan Potassium 100 MG Tablet 1 tablet Orally Once a day, Taking Ferrous Gluconate 324 MG Tablet 1 tablet with water or juice between meals Orally Once a day, Taking Jardiance 10 MG Tablet 1 tablet Orally Once a day, Taking Clopidogrel Bisulfate 75 MG Tablet 1 tablet Orally Once a day, Taking Mucinex 600 MG Tablet Extended Release 1 tablet as needed Orally every 12 hrs, Taking Aspirin EC 81 MG Tablet Delayed Release 1 tablet Orally Once a day, Taking Atorvastatin Calcium 20 MG Tablet 1 tablet Orally Once a day, Taking glipiZIDE ER 2.5 MG Tablet Extended Release 24 Hour 1 tablet with breakfast Orally Once a day, Taking Vision Formula Eye Health - Capsule as directed Orally , Taking Vitamin D3 50 MCG (2000 UT) Capsule 1 capsule Orally Once a day, Taking Pantoprazole Sodium 40 mg Tablet Delayed Release TAKE ONE TABLET BY MOUTH ONCE DAILY , Medication List reviewed and reconciled with the patient Objective: * Vitals:?Ht: 69 in, Wt:164 lb s, Wt-k.39 kg, BMI:24.22 Index, Temp:97.8 F, BP:125/70 mm Hg, HR:87 /min, Oxygen sat %:94 %, O2 Source: RA, Ht-cm: 175.26 cm. * Examination: ???Examination: ?GENERAL APPEARANCE:?Awake/alert. No apparent distress.?HEART:?Regular rate and rhythm without rubs, murmurs, or gallops. PMI nondisplaced.?ABDOMEN:?Soft, nontender, nondistended with active bowel sounds X4. No HSM or masses.? Assessment: * Assessment: 1.?Gastro-esophageal reflux disease without esophagitis - K21.9 (Primary)?2.?Chronic superficial gastritis with bleeding - K29.31?3.?Esophageal dysphagia - R13.19? Plan: * Treatment: 2.?Others? Refill Pantoprazole Sodium Tablet Delayed Release, 40 mg, 1 tablet, Orally, BID, 60 days, 120 Tablet, Refills 6.?? * Follow Up:?4 Weeks * Billing Information: * Visit Code:? 32027 Office Visit, Est Pt., Level 3. * Procedure Codes:? Care Plan Details* * Sign off status: Completed true * Provider:?Bry Diamond MD Monster e:?08/24/2023 Generated for Printi mitchell/Paige/Kristiesmitting on:?09/19/2024 08:34 AM CDT History and Physical Notes * Examination Category Sub-Category Detail Notes Examination GENERAL APPEARANCE: Awake/alert. No apparent distress HEART: Regular rate and rhy thm without rubs, murmurs, or gallops. PMI nondisplaced ABDOMEN: Soft, nontender, non distended with active bowel sounds X4. No HSM or masses
--- OUTSIDE RECORDS SUMMARY | 2024-09-19 08:34 | XMS_ITS ---
Author Name Unknown Organization [facility] Address [address] [place] [address] Care Team Providers Care Teacher Adult Education Name Role Phone Bry Diamond Primary Care Provider [phone] REASON FOR VISIT 1 month f/u Encounters Encounter Location Date Provider Diagnosis [facility] [address] [place] [phone] 09/26/2023 Bry Diamond Plan Of Treatment No Information Progress Notes * PARTH PETERSONDOB:1940 ( 83 yo M)Acc No.[id number]:09/26/2023 Progress Notes Patient:?PARTH PETERSON Provider:?Bry Diamond MD :1940???Age:82 Y???Sex:Male Monster e:09/26/2023 Address:[address] [place], [place] [phone] Subjective: * Chief Complaints: * ???1. 1 month f/u. * Medical History:? Objective: * Vitals:? Assessment: Plan: * Treatment: * Billing Information: * Visit Code:? * Procedure Codes:? Care Plan Details* * Electronic signature of Mellisa Diamond MD on 09/19/2024 at 08:33 AM CDT Sign off status: Pending * Provider:?Bry Diamond MD Monster e:?09/26/2023 Generated for Yessica medrano/Paige/eTransmitting on:?09/19/2024 08:33 AM CDT
--- OUTSIDE RECORDS SUMMARY | 2024-09-19 08:34 | XMS_ITS | Patient Health Record ---
Author Name Unknown Organization [facility] Address [address] [facility] [place] [address] Care Team Providers Care Care Coordination Manager Name Role Phone Bry Diamond Primary Care Provider Allergies No Known Allergies Reason For Referral No Information Medications Medication SIG (Take, Route, Frequency, Duration) Notes Start Date End Date Status Levothyroxine Sodium 75 MCG 1 tablet in the morning on an empty stomach Orally Once a day Active Clopidogrel Bisulfate 75 MG 1 tablet Ora lly Once a day Active Vitamin D3 50 MCG (1999) 1 capsule Or ally Once a day Active Ventolin HFA 90 MCG/ACT 1 puff as needed Inhalation every 4 hrs Active Losartan Potassium 100 MG 1 tablet Orall y Once a day Active Aspirin EC 81 MG 1 tablet Orally Once a day Active Roflumilast 250 MCG 2 tablets Orally Onc e a day Active Allopurinol 300 MG 1 tablet Orally Once a day Active Mucinex 600 MG 1 tablet as needed Orally every 12 hrs Active Jardiance 10 MG 1 tablet Orally Once a day Active Vision Formula Eye Health - as directed Orally Active Trelegy Ellipta 100-62.5-25 MCG/INH 1 puff Inhalation Once a day Active glipiZIDE ER 2.5 MG 1 tablet with breakf ast Orally Once a day Active Ferrous Gluconate 324 MG 1 tablet with w ater or juice between meals Orally Once a day Active Atorvastatin Calcium 20 MG 1 tablet Oral ly Once a day Active metFORMIN HCl 500 MG 1 tablet with a reyna l Orally Once a day Active Pantoprazole Sodium 40 mg TAKE ONE TABLE T BY MOUTH TWICE DAILY for 60 Active Social History Tobacco Use: Social History Observation Description Date Details (start date - stop date) Former Smoker NA - NA xTobacco Use/Smoking Question Answer Notes Are you a former smoker How long has it been since you last smoked? > 10 years Alcohol Screen (Audit-C) Question Answer Notes Did you have a drink containing alcohol in the p ast year? 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
[2024-09-19] MEDS: guaiFENesin 600 mg Tablet PO ×2 (08:55→17:23)
[2024-09-19] MEDS: allopurinol 300 mg Tablet PO (08:55)
[2024-09-19] MEDS: insulin lispro 100 unit/1 mL SUBCUT ×4 (08:55→21:27)
[2024-09-19] MEDS: clopidogrel 75 mg Tablet PO (08:55)
[2024-09-19] MEDS: levothyroxine 75 mcg Tablet PO (08:55)
[2024-09-19] MEDS: aspirin 81 mg EC Tablet PO (08:55)
[2024-09-19] MEDS: atorvastatin 40 mg Tablet 20 MG PO (08:55)
[2024-09-19] MEDS: pantoprazole DR 40 mg Tablet 20 MG PO (08:56)
[2024-09-19] MEDS: losartan 50 mg Tablet 100 MG PO (08:56)
[2024-09-19] MEDS: vancomycin 500 MG in sodium chloride 0.9% (plus) 100 ML 200 MG IV ×2 (08:58→21:27)
[2024-09-19] MEDS: levofloxacin-dextrose 5 % 750 MG/150 ML PREMIX 100 MG IV (09:06)
[2024-09-19 09:21] LABS: Erythrocyte Sedimentation Rate 115 mm/hr (0-10)
[2024-09-19 09:34] LABS: C Reactive Protein 339.6 mg/L (0.0-4.9)
[2024-09-19 09:39] LABS: Procalcitonin 1.33 ng/mL (0-0.5)
--- NOTE | 2024-09-19 09:39 | PC.CHAP ---
Pastoral Care Encounter/Spiritual Assessment Type of Contact [] Declined sewer visit [] Patient/Family/Request visit [] Outpatient visit [] Follow-up visit [] Physician referral [] Code/Alert [] Routine visit [] Staff referral [] Actively dying [] Patient sleeping [] Family support [] [] Out of room [] Palliative care [] [x] Receiving care in room [] Pre-surgical visit [] Trauma [] Long length of stay [] ICU visit [] Other: Relational/Emotional Strength [] Patient feels connected with others/family/visitors/staff [] Distress [] Loneliness/isolation [] Abandonment Spirituality of Patient [] Person of Mckenna [] Attends Methodist of their [place] [] Believes in Prayer [] Reads Bible or Tenriism materials [] There are Spiritual issues to be addressed Gis Professor Interventions [] Prayer [] Active listening [] Non-anxious presence [] Spiritual/emotional support [] Crisis/trauma care [] Spiritual counseling [] Bereavement support [] Provided bereavement packet [] Provided Bible/devotional materials [] Provided toy/stuffed animal, coloring book to patient or family member [] Provided Communion [] Anointing/[place] [] Salvation [] Completed spiritual assessment [] Other: Impact on Illness or Injury [] Angry [] Fearful [] Anxious [] Often cries [] Exhaustion [] Unable to work [] Unable to attend judaism [] Unable to walk/stand [] Unable to read [] Unable to drive [] Unable to eat/drink [] Unable to sleep [] Unable to be with family [] Patient intubated [] Other: Summary Time spent with patient
[2024-09-19 10:59] LABS: Glucose Point of Care 307 mg/dL (70-110)
[2024-09-19] MEDS: heparin 5,000 unit/mL INJ 1 mL 5000 UNIT SUBCUT ×2 (12:01→22:03)
--- NOTE | 2024-09-19 12:19 | ECG_ITS ---
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 Measurements Intervals [place] Rate: 119 P: 63 CT: 104 QRS: 48 QRSD: 84 T: 58 QT: 297 QTc: 419 Interpretive Statements SINUS TACHYCARDIA WITH SHORT CT INTERVAL ABNORMAL RHYTHM ECG Compared to ECG 09/18/2024 04:41:[address] interval now present Electronically Signed On 09-19-2024 22:38:42 CDT by Pritesh Zambrano M.D. [email or web address]
--- NOTE | 2024-09-19 13:30 | P.PN_ITS ---
Subjective 2 Subjective: Seen this morning. White count 31,000, ESR 115, CRP 339. Procalcitonin 1.33. Patient on 5 L nasal cannula at this time. Tachycardic. Have added DVT prophylaxis. Vitals/I&O/Wt Last Vital Signs Temp 98.0 F 09/19/24 11:24 Pulse 119 H 09/19/24 11:34 Resp 20 H 09/19/24 11:25 BP 134/59 09/19/24 11:24 Pulse Ox 91 09/19/24 11:25 O2 Del Method Nasal Cannula 09/19/24 11:25 O2 Flow Rate 5 09/19/24 11:25 FiO2 45 09/18/24 23:05 09/18/24 09/19/24 09/19/24 22:59 06:59 14:59 Intake Total 580 / 1524.167 490.000 / 490.000 Output Total 1050 / 1050 250 / 1300 300 / 300 Balance -470 / 474.167 -250 / 224.167 190.000 / 190.000 Weight last 48 hrs Weight 70.534 kg Weight 70.851 kg Weight 78.018 kg Physical Exam 2 Narrative: General: Patient is awake. Acutely ill-appearing. Head: Normocephalic. Cardiovascular: No gallops. No murmurs. No peripheral edema. Dry mucous membranes. Tachycardic. On 5 L nasal cannula. Lungs: Bibasilar rhonchi. Faint end expiratory wheezing. No conversational dyspnea at this time, no tachypnea. Does appear to be comfortable on 5 L. Abdomen: Normal bowel sounds, abdomen soft and nontender. Extremities: No cyanosis or clubbing. Musculoskeletal: No swollen or erythematous joints. Neurological: Moves all 4 extremities. No myoclonus. Data 09/19/24 05:07 09/19/24 05:07 Micro: Microbiology 09/18/24 02:09 Sputum Culture - Preliminary Sputum - Expectorated Sputum 09/17/24 23:53 Blood Culture - Preliminary Blood NEGATIVE TO DATE 09/17/24 23:49 Blood Culture - Preliminary Blood NEGATIVE TO DATE A&P Assessment and plan (1) Severe sepsis: Severe sepsis secondary to bilateral pneumonia SIRS: Tachycardia, leukocytosis, tachypnea Endorgan damage: Acute on chronic hypoxic respiratory failure IV fluid resuscitation with 30 mL/kg body weight normal saline Start broad-spectrum antibiotics with vancomycin and meropenem MRSA screen Telemetry Strict I's and O's Daily weights Supportive care (2) Pneumonia: Bilateral community-acquired pneumonia, failing oral antibiotics with cefdinir Start broad-spectrum antibiotics as noted above with meropenem/vancomycin Bacterial antigens requested Sputum culture pending Encourage pulmonary toilet (3) COPD (chronic obstructive pulmonary disease): Acute COPD exacerbation with acute on chronic hypoxic respiratory failure Start budesonide nebs Start scheduled albuterol nebs Treat underlying pneumonia sepsis as noted above Supplemental oxygen support RT eval and treat Qualifiers: COPD type: emphysema Emphysema type: unspecified Qualified Code(s): J 43.9 - Emphysema, unspecified (4) Dyslipidemia: Continue statin (5) Benign hypertension: Continue ARB (6) Arteriosclerosis: Continue dual antiplatelet therapy with aspirin and Plavix Continue statin (7) Diabetes mellitus with hyperglycemia, without long-term current use of insulin: Hold home glipizide and metformin Monitor for hyperglycemia in the setting of IV steroid use Start moderate scale sliding scale insulin correction Qualifiers: Diabetes mellitus type: type 2 Qualified Code(s): E11.65 - Type 2 diabetes mellitus with hyperglycemia (8) GERD (gastroesophageal reflux disease): Continue PPI Qualifiers: Esophagitis presence: without esophagitis Qualified Code(s): K21.9 - Gastro-esophageal reflux disease without esophagitis Plan DVT prophylaxis: Lovenox CODE STATUS: Full code #Severe sepsis secondary to bilateral pneumonia #History of bronchiectasis #History of pneumonia in the past #Hypertension #Diabetes mellitus #GERD #Underlying COPD ? Patient tachycardic since admission. PE ruled out. Will check EKG. ? Currently on 5 L nasal cannula. Procalcitonin 1.33, C-reactive protein 339, ESR 115. White count 31,000. ? Patient was on Solu-Medrol 40 every 6 hours. Will switch to every 12 hours. ? White count could possibly be exacerbated secondary to steroids however may also be secondary to severe pneumonia. Will trend. ? Check procalcitonin daily, CRP, ESR. ? Consider repeat imaging in next 48 hours if no improvement. Will keep a close eye out for parapneumonic effusion versus empyema. Currently it is not present on initial CT from admission ? Continue to wean down oxygen as able. Patient baseline 2 to 3 L at home. ? Add dual pseudomonal coverage. Continue levofloxacin and meropenem IV ? Continue vancomycin ? Check MRSA nares ? Await sputum culture Gram stain ? Check blood cultures ? Bacterial antigen Legionella, Streptococcus pending ? Continue insulin sliding scale ? Continue heparin subcu twice daily ? Will place on IV fluids secondary to sepsis. Normal saline 100 cc/h. Will give fluid bolus normal saline 1 L at this time. Patient has been tacky since admission. Full code DVT prophylaxis: Heparin subcu twice daily Attestations 2 Medical Necessity Statement*: Continue to hospitalize for severe sepsis secondary to pneumonia. Coding Level of Care Code Acute Code for [facility] Diagnoses Severe sepsis A41.9; R65.20 Pneumonia J18.9 Pulmonary emphysema, unspecified emphysema type J43.9 COPD type: emphysema Emphysema type: unspecified Dyslipidemia E78.5 Benign hypertension I10 Arteriosclerosis I70.90 Type 2 diabetes mellitus with hyperglycemia, without long-term current use of insulin E11.65 Diabetes mellitus type: type 2 Gastroesophageal reflux disease without esophagitis K21.9 Esophagitis presence: without esophagitis
--- NOTE | 2024-09-19 14:13 | ECG_ITS ---
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 Measurements Intervals [place] Rate: 114 P: 53 MI: 135 QRS: 36 QRSD: 84 T: 62 QT: 309 QTc: 427 Interpretive Statements SINUS TACHYCARDIA POSSIBLE LEFT ATRIAL ENLARGEMENT [-0.1mV P-WAVE IN V1/V2] ABNORMAL RHYTHM ECG Compared to ECG 09/19/2024 12:19:23 Short MI interval no longer present Electronically Signed On 09-19-2024 22:39:05 CDT by Pritesh Zambrano M.D. [email or web address]
[2024-09-19] MEDS: sodium chloride 0.9% 1,000 ML 100 ML IV (14:19)
[2024-09-19] MEDS: lactulose oral liq 20 gm/30 mL UDC PO (17:23)
[2024-09-19 17:38] LABS: Glucose Point of Care 183 mg/dL (70-110)
--- NOTE | 2024-09-19 17:46 | USCV_ITS ---
Dl Ness Age: 83 Gender: M : 1940 Exam Date: 09/19/2024 20:25 Ordering Phys: Jessica Olvera MD Technologist: JACINTO [place] [facility] [place]: heart failure, SOB, pneumonia, COPD O2 dependent 2L. BP: 110 / 64 HR: 101 Rhythm: Sinus Technical Quality: Adequate MEASUREMENTS (Male / Female) Normal Values 2D ECHO LV Diastolic Diameter PLAX 3.4 cm 4.2 - 5.9 / 3.9 - 5.3 cm IVS Diastolic Thickness 1.5 cm 0.6 - 1.0 / 0.6 - 0.9 cm IVS Systolic Thickness 1.5 cm LVPW Diastolic Thickness 1.3 cm 0.6 - 1.0 / 0.6 - 0.9 cm LVPW Systolic Thickness 1.6 cm LVOT Diameter 1.7 cm LV Ejection Fraction 2D Teich 71.7 % LV Ejection Fraction MOD 4C 58.9 % LV Ejection Fraction MOD 2C 74.5 % LV Ejection Fraction 2C AL 72.8 % LA Diameter 3.6 cm Aorta at Sinotubular Diameter 2.6 cm IVC Diameter 1.9 cm M-MODE LA Ao Ratio MM 1.1 AV Cusp Separation MM 1.6 cm DOPPLER AV Peak Velocity 134.0 cm/s LVOT Peak Velocity 93.0 cm/s AV Area Cont Eq vti 1.6 cm squared AV Area Cont Eq pk 1.5 cm squared MV Peak Velocity 144.0 cm/s MV Area PHT 5.4 cm squared Mitral E to A Ratio 0.8 TR Peak Velocity 217.0 cm/s TR Peak Gradient 18.8 mmHg TV Peak E Velocity 67.0 cm/s Right Atrial Pressure 3.0 mmHg Pulmonary Artery Systolic Pressu 21.8 mmHg PV Peak Velocity 98.0 cm/s FINDINGS Left Ventricle .Normal left ventricular size and systolic function, EF 65%.abnormal septal motion consistent with conduction abnormality. Grade I/IV diastolic dysfunction (abnormal relaxation filling pattern), normal to mildly elevated filling pressures. Mild left ventricular hypertrophy. Right Ventricle The right ventricle is normal in size and function. Right Atrium The right atrium is normal in size. Left Atrium The left atrium is normal in size. Mitral Valve Mild to moderate mitral annular calcification.trace mitral valve regurgitation. Aortic Valve No gross abnormalities noted Tricuspid Valve Trace tricuspid valve regurgitation. Pulmonic Valve No gross abnormalities noted Pericardium No pericardial effusion. Aorta Normal ascending aorta dimension. IVC The inferior vena cava appears normal. CONCLUSIONS .Normal left ventricular size and systolic function, EF 65%.abnormal septal motion consistent with conduction abnormality. Grade I/IV diastolic dysfunction (abnormal relaxation filling pattern), normal to mildly elevated filling pressures. Mild left ventricular hypertrophy. Mild to moderate mitral annular calcification. Trace of mitral and tricuspid valve regurgitation. There is no pericardial effusion. There are no intracardiac masses. Technically limited study because of the poor ultrasonic windows. Only parasternal and subcostal views. No apical views. Dr Pritesh Zambrano MD FACC (Electronically Signed) Final Date: 20 September 2024 09:22 S
[2024-09-19 21:11] LABS: Glucose Point of Care 320 mg/dL (70-110)
[2024-09-19] MEDS: ipratropium-albuterol 3 mL Neb INHALATION (21:50)
[2024-09-20] VITALS (15 sets, daily range): BP systolic 108–138; BP diastolic 57–78; PULSE 66–113; RESP 10–29; TEMP 36.6–36.8; O2SAT 92–97
[2024-09-20] MEDS: acetylcysteine 200 mg/mL MDV 10 mL INHALATION ×7 (01:03→23:33)
[2024-09-20] MEDS: ipratropium-albuterol 3 mL Neb INHALATION ×7 (01:03→23:32)
[2024-09-20] MEDS: meropenem 1,000 mg SDV 1000 MG IVP ×3 (06:01→22:34)
[2024-09-20 06:32] LABS: Basophils # 0.1 10^3/uL (0.0-0.1); Basophils % 0.2 %; Hematocrit 37.4 % (37-53); Lymphocytes # 0.5 10^3/uL (0.8-4.8); Lymphocytes % 1.7 %; Mean Corpuscular HGB Conc 31.6 g/dL (30-55); Mean Corpuscular Hemoglobin 28.3 pg (27-33); Mean Corpuscular Volume 89.7 fl (82-101); Mean Platelet Volume 10.4 fL (7.4-10.4); Monocytes # 0.5 10^3/uL (0.2-0.9); Monocytes % 1.7 %; Neutrophils # 27.69 10^3/uL (1.8-7.7); Neutrophils % 95.1 %; Nucleated Red Blood Cells % 0 %; Platelet Count 318 10^3/cmm (157-399); Red Blood Count 4.17 10^6/uL (3.85-5.65); Red Cell Distribution Width 14.2 % (12.1-15.1); White Blood Count 29.11 10^3/uL (3.29-11.43)
[2024-09-20 06:42] LABS: Glucose Point of Care 201 mg/dL (70-110)
[2024-09-20 06:55] LABS: Erythrocyte Sedimentation Rate 94 mm/hr (0-10)
[2024-09-20 07:12] LABS: Anion Gap 17.2 (5-19); Blood Urea Nitrogen 35 mg/dL (8-23); C Reactive Protein 224.7 mg/L (0.0-4.9); Calcium 8.8 mg/dL (8.5-10.5); Carbon Dioxide 27 mmol/L (22-29); Chloride 96 mmol/L (98-107); Creatinine Clr Calc Pharmacy 56.3132; Glucose 173 mg/dL (65-115); Magnesium 2.1 mg/dL (1.7-2.3); Osmolality Calculated 294 mOsm/kg (285-295); Potassium 4.2 mmol/L (3.5-5.1); Sodium 136 mmol/L (136-145)
[2024-09-20 07:14] LABS: Procalcitonin 0.87 ng/mL (0-0.5)
--- NOTE | 2024-09-20 08:00 | XR_ITS ---
WS: [id number] Exam: XR chest 1V portable [id number] Date/Time of Exam: 09/20/2024 8:10 AM Reason For Exam: Pneumonia. Rule out parapneumonic effusion, follow-up Comparison 12/29/2022. There are bibasal pulmonary infiltrates most marked on the LEFT. The lungs are fully expanded. No ple ural effusions. Cardiomediastinal structures are unremarkable for technique. Bony elements are unrema rkable. XR/XR chest 1V portable [id number] IMPRESSION: 1. Bibasal pulmonary infiltrates most marked on the LEFT. These findings sugges t pneumonia.
[2024-09-20] MEDS: budesonide 0.5 mg/2 mL Neb INHALATION ×2 (08:25→20:49)
[2024-09-20] MEDS: guaiFENesin 600 mg Tablet PO ×2 (08:37→17:52)
[2024-09-20] MEDS: pantoprazole DR 40 mg Tablet 20 MG PO (08:37)
[2024-09-20] MEDS: lactulose oral liq 20 gm/30 mL UDC PO (08:37)
[2024-09-20] MEDS: clopidogrel 75 mg Tablet PO (08:37)
[2024-09-20] MEDS: aspirin 81 mg EC Tablet PO (08:37)
[2024-09-20] MEDS: levothyroxine 75 mcg Tablet PO (08:37)
[2024-09-20] MEDS: allopurinol 300 mg Tablet PO (08:37)
[2024-09-20] MEDS: atorvastatin 40 mg Tablet 20 MG PO (08:37)
[2024-09-20] MEDS: methylPREDNISolone sod succ 40 mg/mL INJ IVP (08:38)
[2024-09-20] MEDS: losartan 50 mg Tablet 100 MG PO (08:38)
[2024-09-20] MEDS: levofloxacin-dextrose 5 % 750 MG/150 ML PREMIX 100 MG IV (08:39)
[2024-09-20 08:44] LABS: Vancomycin Trough 13.8 ug/mL (10-15)
[2024-09-20] MEDS: insulin lispro 100 unit/1 mL SUBCUT ×4 (09:10→21:23)
[2024-09-20] MEDS: vancomycin 750 MG in sodium chloride 0.9% 250 ML 250 MG IV ×2 (11:24→21:23)
[2024-09-20] MEDS: heparin 5,000 unit/mL INJ 1 mL 5000 UNIT SUBCUT ×2 (11:58→22:35)
[2024-09-20 12:32] LABS: Glucose Point of Care 371 mg/dL (70-110)
--- NOTE | 2024-09-20 12:40 | P.PN_ITS ---
Subjective 2 Subjective: Seen this morning. Subjectively patient states he is feeling slightly better. Still on 5 L nasal cannula. CRP procalcitonin, sed rate trending down. White count 29,000. Blood cultures negative to date Bacterial antigen Streptococcus and Legionella is negative. Vitals/I&O/Wt Last Vital Signs Temp 98.2 F 09/20/24 11:19 Pulse 105 H 09/20/24 11:19 Resp 17 09/20/24 11:19 BP 137/76 09/20/24 11:19 Pulse Ox 94 09/20/24 11:19 O2 Del Method Nasal Cannula 09/20/24 11:19 O2 Flow Rate 5 09/20/24 11:19 FiO2 40 09/20/24 09:11 09/19/24 09/20/24 09/20/24 22:59 06:59 14:59 Intake Total 636.667 / 1326.667 590 / 590 Output Total 500 / 800 300 / 1100 Balance 136.667 / 526.667 -300 / 226.667 590 / 590 Weight last 48 hrs Weight 71.781 kg Weight 70.534 kg Physical Exam 2 Narrative: General: Patient is awake. Ill-appearing. However appears slightly better compared to yesterday. Head: Normocephalic. Cardiovascular: No gallops. No murmurs. No peripheral edema. Dry mucous membranes. Longer tachycardic. On 5 L nasal cannula. Lungs: Bibasilar rhonchi. Faint end expiratory wheezing. No conversational dyspnea at this time, no tachypnea. Does appear to be comfortable on 5 L. Abdomen: Normal bowel sounds, abdomen soft and nontender. Extremities: No cyanosis or clubbing. Musculoskeletal: No swollen or erythematous joints. Neurological: Moves all 4 extremities. No myoclonus. Data 09/20/24 05:07 09/20/24 05:07 Micro: Microbiology 09/18/24 02:09 Sputum Culture - Final Sputum - Expectorated Sputum 09/19/24 11:40 Gram Stain - Final Sputum - Expectorated Sputum Sputum Culture - Preliminary 09/19/24 12:24 Legionella Urinary Antigen - Final Urine,Voided 09/19/24 12:24 Bacterial Antigens - Final Urine,Voided A&P Assessment and plan (1) Severe sepsis: Severe sepsis secondary to bilateral pneumonia SIRS: Tachycardia, leukocytosis, tachypnea Endorgan damage: Acute on chronic hypoxic respiratory failure IV fluid resuscitation with 30 mL/kg body weight normal saline Start broad-spectrum antibiotics with vancomycin and meropenem MRSA screen Telemetry Strict I's and O's Daily weights Supportive care (2) Pneumonia: Bilateral community-acquired pneumonia, failing oral antibiotics with cefdinir Start broad-spectrum antibiotics as noted above with meropenem/vancomycin Bacterial antigens requested Sputum culture pending Encourage pulmonary toilet (3) COPD (chronic obstructive pulmonary disease): Acute COPD exacerbation with acute on chronic hypoxic respiratory failure Start budesonide nebs Start scheduled albuterol nebs Treat underlying pneumonia sepsis as noted above Supplemental oxygen support RT eval and treat Qualifiers: COPD type: emphysema Emphysema type: unspecified Qualified Code(s): J 43.9 - Emphysema, unspecified (4) Dyslipidemia: Continue statin (5) Benign hypertension: Continue ARB (6) Arteriosclerosis: Continue dual antiplatelet therapy with aspirin and Plavix Continue statin (7) Diabetes mellitus with hyperglycemia, without long-term current use of insulin: Hold home glipizide and metformin Monitor for hyperglycemia in the setting of IV steroid use Start moderate scale sliding scale insulin correction Qualifiers: Diabetes mellitus type: type 2 Qualified Code(s): E11.65 - Type 2 diabetes mellitus with hyperglycemia (8) GERD (gastroesophageal reflux disease): Continue PPI Qualifiers: Esophagitis presence: without esophagitis Qualified Code(s): K21.9 - Gastro-esophageal reflux disease without esophagitis Plan DVT prophylaxis: Lovenox CODE STATUS: Full code #Severe sepsis secondary to bilateral pneumonia #History of bronchiectasis #History of pneumonia in the past #Hypertension #Diabetes mellitus #GERD #Underlying COPD ? Patient tachycardic since admission. PE ruled out. Will check EKG. ? Currently on 5 L nasal cannula. Procalcitonin 1.33, C-reactive protein 339, ESR 115. White count 31,000. ? Patient was on Solu-Medrol 40 every 6 hours. Will switch to every 12 hours. ? White count could possibly be exacerbated secondary to steroids however may also be secondary to severe pneumonia. Will trend. ? Check procalcitonin daily, CRP, ESR. ? Consider repeat imaging in next 48 hours if no improvement. Will keep a close eye out for parapneumonic effusion versus empyema. Currently it is not present on initial CT from admission ? Continue to wean down oxygen as able. Patient baseline 2 to 3 L at home. ? Add dual pseudomonal coverage. Continue levofloxacin and meropenem IV ? Continue vancomycin ? Check MRSA nares ? Await sputum culture Gram stain ? Check blood cultures ? Bacterial antigen Legionella, Streptococcus pending ? Continue insulin sliding scale ? Continue heparin subcu twice daily ? Will place on IV fluids secondary to sepsis. Normal saline 100 cc/h. Will give fluid bolus normal saline 1 L at this time. Patient has been tacky since admission. Full code DVT prophylaxis: Heparin subcu twice daily 09/20/2024 -Continue vancomycin, meropenem, Levaquin for dual pseudomonal coverage at this time at this time. -Check MRSA nares swab ? Await sputum culture Gram stain ? Blood cultures negative to date, bacterial antigen Legionella Streptococcus negative to date ? Did start IV fluids on the patient however they were later discontinued secondary to fluid overload ? Echo does show grade 1 x 4 diastolic dysfunction, EF 65%. ? Will hold off on adding Lasix today. ? Procalcitonin, CRP, ESR daily ? Switch to Solu-Medrol 40 daily. ? Continue on DVT prophylaxis with heparin subcu twice daily Full code DVT prophylaxis: SCDs and heparin. Attestations 2 Medical Necessity Statement*: Continue to hospitalize for severe sepsis secondary to pneumonia. Diagnoses Severe sepsis A41.9; R65.20 Pneumonia J18.9 Pulmonary emphysema, unspecified emphysema type J43.9 COPD type: emphysema Emphysema type: unspecified Dyslipidemia E78.5 Benign hypertension I10 Arteriosclerosis I70.90 Type 2 diabetes mellitus with hyperglycemia, without long-term current use of insulin E11.65 Diabetes mellitus type: type 2 Gastroesophageal reflux disease without esophagitis K21.9 Esophagitis presence: without esophagitis
[2024-09-20 17:56] LABS: Glucose Point of Care 270 mg/dL (70-110)
[2024-09-20 21:04] LABS: Glucose Point of Care 182 mg/dL (70-110)
[2024-09-21] VITALS (18 sets, daily range): BP systolic 118–173; BP diastolic 68–84; PULSE 100–123; RESP 10–34; TEMP 36.4–37.2; O2SAT 92–97
[2024-09-21] MEDS: ipratropium-albuterol 3 mL Neb INHALATION ×5 (03:09→20:08)
[2024-09-21] MEDS: acetylcysteine 200 mg/mL MDV 10 mL INHALATION ×5 (03:09→20:08)
[2024-09-21 04:54] LABS: Basophils # 0.1 10^3/uL (0.0-0.1); Basophils % 0.2 %; Hematocrit 39.8 % (37-53); Lymphocytes # 0.5 10^3/uL (0.8-4.8); Lymphocytes % 1.9 %; Mean Corpuscular HGB Conc 31.9 g/dL (30-55); Mean Corpuscular Hemoglobin 29.3 pg (27-33); Mean Corpuscular Volume 91.9 fl (82-101); Mean Platelet Volume 9.9 fL (7.4-10.4); Monocytes # 0.6 10^3/uL (0.2-0.9); Monocytes % 2.5 %; Neutrophils # 23.33 10^3/uL (1.8-7.7); Neutrophils % 94.4 %; Nucleated Red Blood Cells % 0 %; Platelet Count 298 10^3/cmm (157-399); Red Blood Count 4.33 10^6/uL (3.85-5.65); Red Cell Distribution Width 14.5 % (12.1-15.1); White Blood Count 24.72 10^3/uL (3.29-11.43)
[2024-09-21] MEDS: meropenem 1,000 mg SDV 1000 MG IVP ×3 (05:44→23:00)
[2024-09-21 06:29] LABS: Glucose Point of Care 205 mg/dL (70-110)
[2024-09-21] MEDS: budesonide 0.5 mg/2 mL Neb INHALATION ×2 (07:40→20:08)
[2024-09-21] MEDS: aspirin 81 mg EC Tablet PO (08:14)
[2024-09-21] MEDS: methylPREDNISolone sod succ 40 mg/mL INJ IVP (08:14)
[2024-09-21] MEDS: insulin lispro 100 unit/1 mL SUBCUT ×3 (08:14→21:01)
[2024-09-21] MEDS: levothyroxine 75 mcg Tablet PO (08:15)
[2024-09-21] MEDS: atorvastatin 40 mg Tablet 20 MG PO (08:16)
[2024-09-21] MEDS: levofloxacin-dextrose 5 % 750 MG/150 ML PREMIX 100 MG IV (08:16)
[2024-09-21] MEDS: pantoprazole DR 40 mg Tablet 20 MG PO (08:16)
[2024-09-21] MEDS: allopurinol 300 mg Tablet PO (08:16)
[2024-09-21] MEDS: clopidogrel 75 mg Tablet PO (08:16)
[2024-09-21] MEDS: guaiFENesin 600 mg Tablet PO ×2 (08:16→18:03)
[2024-09-21] MEDS: losartan 50 mg Tablet 100 MG PO (08:21)
[2024-09-21 08:58] LABS: Anion Gap 14.2 (5-19); Blood Urea Nitrogen 28 mg/dL (8-23); C Reactive Protein 123.8 mg/L (0.0-4.9); Calcium 9.1 mg/dL (8.5-10.5); Carbon Dioxide 28 mmol/L (22-29); Chloride 96 mmol/L (98-107); Glucose 175 mg/dL (65-115); Magnesium 1.9 mg/dL (1.7-2.3); Osmolality Calculated 288 mOsm/kg (285-295); Potassium 4.2 mmol/L (3.5-5.1); Sodium 134 mmol/L (136-145)
--- NOTE | 2024-09-21 09:59 | PC.SOCIAL ---
IMM Update pg 2 of IMM Updated and reviewed w/ patient. Copy provided and copy dated, initialed and placed in chart.
[2024-09-21] MEDS: FUROsemide 10 mg/mL SDV 4mL 40 MG IVP (10:40)
[2024-09-21] MEDS: vancomycin 750 MG in sodium chloride 0.9% 250 ML 250 MG IV (10:40)
[2024-09-21] MEDS: heparin 5,000 unit/mL INJ 1 mL 5000 UNIT SUBCUT ×2 (10:41→23:00)
[2024-09-21 11:28] LABS: Glucose Point of Care 148 mg/dL (70-110)
--- NOTE | 2024-09-21 14:23 | P.PN_ITS ---
Subjective 2 Subjective: White count trending down to 24,000. Patient still experiencing sinus tachycardia. EKG did show sinus tach. Vitals/I&O/Wt Last Vital Signs Temp 97.9 F 09/21/24 11:10 Pulse 117 H 09/21/24 11:49 Resp 25 H 09/21/24 11:49 BP 147/84 09/21/24 11:10 Pulse Ox 94 09/21/24 11:49 O2 Del Method BiPAP 09/21/24 11:49 O2 Flow Rate 4 09/21/24 03:09 FiO2 40 09/21/24 11:49 09/20/24 09/21/24 09/21/24 22:59 06:59 14:59 Intake Total 490 / 2033.333 236 / 236 Output Total 300 / 300 500 / 800 Balance 190 / 1733.333 -500 / 1233.333 236 / 236 Weight last 48 hrs Weight 71.809 kg Weight 71.781 kg Physical Exam 2 Narrative: General: Patient is awake. Ill-appearing. However appears slightly better compared to yesterday. Head: Normocephalic. Cardiovascular: No gallops. No murmurs. No peripheral edema. Dry mucous membranes. On 5 L nasal cannula. Lungs: Bibasilar rhonchi. Faint end expiratory wheezing. No conversational dyspnea at this time, no tachypnea. Does appear to be comfortable on 5 L. Abdomen: Normal bowel sounds, abdomen soft and nontender. Extremities: No cyanosis or clubbing. Data 09/21/24 04:42 09/21/24 08:28 Micro: Microbiology 09/19/24 11:40 Gram Stain - Final Sputum - Expectorated Sputum Sputum Culture - Final 09/18/24 02:09 Sputum Culture - Final Sputum - Expectorated Sputum A&P Assessment and plan (1) Severe sepsis: Severe sepsis secondary to bilateral pneumonia SIRS: Tachycardia, leukocytosis, tachypnea Endorgan damage: Acute on chronic hypoxic respiratory failure IV fluid resuscitation with 30 mL/kg body weight normal saline Start broad-spectrum antibiotics with vancomycin and meropenem MRSA screen Telemetry Strict I's and O's Daily weights Supportive care (2) Pneumonia: Bilateral community-acquired pneumonia, failing oral antibiotics with cefdinir Start broad-spectrum antibiotics as noted above with meropenem/vancomycin Bacterial antigens requested Sputum culture pending Encourage pulmonary toilet (3) COPD (chronic obstructive pulmonary disease): Acute COPD exacerbation with acute on chronic hypoxic respiratory failure Start budesonide nebs Start scheduled albuterol nebs Treat underlying pneumonia sepsis as noted above Supplemental oxygen support RT eval and treat Qualifiers: COPD type: emphysema Emphysema type: unspecified Qualified Code(s): J 43.9 - Emphysema, unspecified (4) Dyslipidemia: Continue statin (5) Benign hypertension: Continue ARB (6) Arteriosclerosis: Continue dual antiplatelet therapy with aspirin and Plavix Continue statin (7) Diabetes mellitus with hyperglycemia, without long-term current use of insulin: Hold home glipizide and metformin Monitor for hyperglycemia in the setting of IV steroid use Start moderate scale sliding scale insulin correction Qualifiers: Diabetes mellitus type: type 2 Qualified Code(s): E11.65 - Type 2 diabetes mellitus with hyperglycemia (8) GERD (gastroesophageal reflux disease): Continue PPI Qualifiers: Esophagitis presence: without esophagitis Qualified Code(s): K21.9 - Gastro-esophageal reflux disease without esophagitis Plan DVT prophylaxis: Lovenox CODE STATUS: Full code #Severe sepsis secondary to bilateral pneumonia #History of bronchiectasis #History of pneumonia in the past #Hypertension #Diabetes mellitus #GERD #Underlying COPD ? Patient tachycardic since admission. PE ruled out. Will check EKG. ? Currently on 5 L nasal cannula. Procalcitonin 1.33, C-reactive protein 339, ESR 115. White count 31,000. ? Patient was on Solu-Medrol 40 every 6 hours. Will switch to every 12 hours. ? White count could possibly be exacerbated secondary to steroids however may also be secondary to severe pneumonia. Will trend. ? Check procalcitonin daily, CRP, ESR. ? Consider repeat imaging in next 48 hours if no improvement. Will keep a close eye out for parapneumonic effusion versus empyema. Currently it is not present on initial CT from admission ? Continue to wean down oxygen as able. Patient baseline 2 to 3 L at home. ? Add dual pseudomonal coverage. Continue levofloxacin and meropenem IV ? Continue vancomycin ? Check MRSA nares ? Await sputum culture Gram stain ? Check blood cultures ? Bacterial antigen Legionella, Streptococcus pending ? Continue insulin sliding scale ? Continue heparin subcu twice daily ? Will place on IV fluids secondary to sepsis. Normal saline 100 cc/h. Will give fluid bolus normal saline 1 L at this time. Patient has been tacky since admission. Full code DVT prophylaxis: Heparin subcu twice daily 09/21/2024 -Continue vancomycin, meropenem, Levaquin for dual pseudomonal coverage at this time at this time. -Check MRSA nares swab ? Await sputum culture Gram stain ? Blood cultures negative to date, bacterial antigen Legionella Streptococcus negative to date ? Did start IV fluids on the patient however they were later discontinued secondary to fluid overload ? Echo does show grade 1 x 4 diastolic dysfunction, EF 65%. ? lasix 40 iv x1 today add lopressor 12.5 bid ? Procalcitonin, CRP, ESR daily ? continue Solu-Medrol 40 daily. ? Continue on DVT prophylaxis with heparin subcu twice daily Full code DVT prophylaxis: SCDs and heparin. Attestations 2 Medical Necessity Statement*: Continue to hospitalize for severe sepsis secondary to pneumonia. Diagnoses Severe sepsis A41.9; R65.20 Pneumonia J18.9 Pulmonary emphysema, unspecified emphysema type J43.9 COPD type: emphysema Emphysema type: unspecified Dyslipidemia E78.5 Benign hypertension I10 Arteriosclerosis I70.90 Type 2 diabetes mellitus with hyperglycemia, without long-term current use of insulin E11.65 Diabetes mellitus type: type 2 Gastroesophageal reflux disease without esophagitis K21.9 Esophagitis presence: without esophagitis
[2024-09-21 17:34] LABS: Glucose Point of Care 292 mg/dL (70-110)
[2024-09-21 20:45] LABS: Glucose Point of Care 383 mg/dL (70-110)
[2024-09-21] MEDS: metoprolol tartrate 25 mg Tablet 12.5 MG PO (20:53)
[2024-09-21 21:05] LABS: Vancomycin Trough 18.2 ug/mL (10-15)
[2024-09-21] MEDS: VANCOMYCIN ADD-Vantage 750 MG in 0.9% NaCl ADD-Vantage 250 ML 250 MG IV (21:31)
[2024-09-22] VITALS (22 sets, daily range): BP systolic 112–155; BP diastolic 62–84; PULSE 56–118; RESP 10–25; TEMP 36.4–36.6; O2SAT 90–98
[2024-09-22] MEDS: acetylcysteine 200 mg/mL MDV 10 mL INHALATION ×6 (00:43→19:47)
[2024-09-22] MEDS: ipratropium-albuterol 3 mL Neb INHALATION ×6 (00:43→19:47)
[2024-09-22 05:28] LABS: Basophils % 0.1 %; Hematocrit 42.5 % (37-53); Lymphocytes # 0.8 10^3/uL (0.8-4.8); Lymphocytes % 4.6 %; Mean Corpuscular HGB Conc 31.8 g/dL (30-55); Mean Corpuscular Hemoglobin 28.9 pg (27-33); Mean Platelet Volume 9.9 fL (7.4-10.4); Monocytes # 0.6 10^3/uL (0.2-0.9); Monocytes % 3.4 %; Neutrophils # 15.14 10^3/uL (1.8-7.7); Neutrophils % 91.1 %; Nucleated Red Blood Cells % 0 %; Platelet Count 346 10^3/cmm (157-399); Red Blood Count 4.67 10^6/uL (3.85-5.65); Red Cell Distribution Width 14.3 % (12.1-15.1); White Blood Count 16.63 10^3/uL (3.29-11.43)
--- NOTE | 2024-09-22 05:29 | PC.NURSE ---
Patient had a short episode of bradycardia at 0432
[2024-09-22 05:51] LABS: Anion Gap 13.6 (5-19); Blood Urea Nitrogen 29 mg/dL (8-23); Calcium 9.1 mg/dL (8.5-10.5); Carbon Dioxide 32 mmol/L (22-29); Chloride 95 mmol/L (98-107); Creatinine Clr Calc Pharmacy 61.4928; Glucose 155 mg/dL (65-115); Osmolality Calculated 293 mOsm/kg (285-295); Potassium 3.6 mmol/L (3.5-5.1); Sodium 137 mmol/L (136-145)
[2024-09-22] MEDS: meropenem 1,000 mg SDV 1000 MG IVP ×3 (05:59→22:40)
[2024-09-22 06:24] LABS: Glucose Point of Care 165 mg/dL (70-110)
[2024-09-22] MEDS: methylPREDNISolone sod succ 40 mg/mL INJ IVP (08:33)
[2024-09-22] MEDS: insulin lispro 100 unit/1 mL SUBCUT ×4 (08:33→21:03)
[2024-09-22] MEDS: levofloxacin-dextrose 5 % 750 MG/150 ML PREMIX 100 MG IV (08:33)
[2024-09-22] MEDS: pantoprazole DR 40 mg Tablet 20 MG PO (08:34)
[2024-09-22] MEDS: clopidogrel 75 mg Tablet PO (08:34)
[2024-09-22] MEDS: aspirin 81 mg EC Tablet PO (08:35)
[2024-09-22] MEDS: allopurinol 300 mg Tablet PO (08:35)
[2024-09-22] MEDS: metoprolol tartrate 25 mg Tablet 12.5 MG PO (08:35)
[2024-09-22] MEDS: atorvastatin 40 mg Tablet 20 MG PO (08:35)
[2024-09-22] MEDS: levothyroxine 75 mcg Tablet PO (08:35)
[2024-09-22] MEDS: guaiFENesin 600 mg Tablet PO ×2 (08:35→17:29)
[2024-09-22] MEDS: budesonide 0.5 mg/2 mL Neb INHALATION ×2 (08:40→19:47)
[2024-09-22] MEDS: losartan 50 mg Tablet 100 MG PO (08:41)
[2024-09-22] MEDS: VANCOMYCIN ADD-Vantage 750 MG in 0.9% NaCl ADD-Vantage 250 ML 250 MG IV ×2 (10:47→21:03)
[2024-09-22 12:01] LABS: Glucose Point of Care 185 mg/dL (70-110)
[2024-09-22] MEDS: heparin 5,000 unit/mL INJ 1 mL 5000 UNIT SUBCUT ×2 (12:08→22:41)
--- NOTE | 2024-09-22 13:20 | P.PN_ITS ---
Subjective 2 Subjective: Seen today. Family present at bedside. Patient for the nasal cannula at this time saturating 96%. Does desaturate upon exertion or movement. Says he feels a lot better compared to before. CRP still elevated, procalcitonin elevated. Vitals/I&O/Wt Last Vital Signs Temp 97.7 F 09/22/24 08:00 Pulse 108 H 09/22/24 12:24 Resp 20 H 09/22/24 12:16 BP 144/77 09/22/24 08:41 Pulse Ox 95 09/22/24 12:16 O2 Del Method Nasal Cannula 09/22/24 12:16 O2 Flow Rate 4 09/22/24 12:16 FiO2 40 09/22/24 03:46 09/21/24 09/22/24 09/22/24 22:59 06:59 14:59 Intake Total 120 / 756 250 / 1006 760 / 760 Output Total 400 / 400 300 / 300 Balance 120 / 756 -150 / 606 460 / 460 Weight last 48 hrs Weight 68.719 kg Weight 71.809 kg Physical Exam 2 Narrative: General: Patient is awake. No acute distress. Head: Normocephalic. Cardiovascular: No gallops. No murmurs. No peripheral edema. On 5 L nasal cannula. Saturating 96%. Lungs: Clear to auscultation bilaterally with mild diffuse rhonchi. Abdomen: Normal bowel sounds, abdomen soft and nontender. Extremities: No cyanosis or clubbing. Data 09/22/24 04:31 09/22/24 04:31 Micro: Microbiology 09/19/24 11:40 Gram Stain - Final Sputum - Expectorated Sputum Sputum Culture - Final A&P Assessment and plan (1) Severe sepsis: Severe sepsis secondary to bilateral pneumonia SIRS: Tachycardia, leukocytosis, tachypnea Endorgan damage: Acute on chronic hypoxic respiratory failure IV fluid resuscitation with 30 mL/kg body weight normal saline Start broad-spectrum antibiotics with vancomycin and meropenem MRSA screen Telemetry Strict I's and O's Daily weights Supportive care (2) Pneumonia: Bilateral community-acquired pneumonia, failing oral antibiotics with cefdinir Start broad-spectrum antibiotics as noted above with meropenem/vancomycin Bacterial antigens requested Sputum culture pending Encourage pulmonary toilet (3) COPD (chronic obstructive pulmonary disease): Acute COPD exacerbation with acute on chronic hypoxic respiratory failure Start budesonide nebs Start scheduled albuterol nebs Treat underlying pneumonia sepsis as noted above Supplemental oxygen support RT eval and treat Qualifiers: COPD type: emphysema Emphysema type: unspecified Qualified Code(s): J 43.9 - Emphysema, unspecified (4) Dyslipidemia: Continue statin (5) Benign hypertension: Continue ARB (6) Arteriosclerosis: Continue dual antiplatelet therapy with aspirin and Plavix Continue statin (7) Diabetes mellitus with hyperglycemia, without long-term current use of insulin: Hold home glipizide and metformin Monitor for hyperglycemia in the setting of IV steroid use Start moderate scale sliding scale insulin correction Qualifiers: Diabetes mellitus type: type 2 Qualified Code(s): E11.65 - Type 2 diabetes mellitus with hyperglycemia (8) GERD (gastroesophageal reflux disease): Continue PPI Qualifiers: Esophagitis presence: without esophagitis Qualified Code(s): K21.9 - Gastro-esophageal reflux disease without esophagitis Plan DVT prophylaxis: Lovenox CODE STATUS: Full code #Severe sepsis secondary to bilateral pneumonia #History of bronchiectasis #History of pneumonia in the past #Hypertension #Diabetes mellitus #GERD #Underlying COPD ? Patient tachycardic since admission. PE ruled out. Will check EKG. ? Currently on 5 L nasal cannula. Procalcitonin 1.33, C-reactive protein 339, ESR 115. White count 31,000. ? Patient was on Solu-Medrol 40 every 6 hours. Will switch to every 12 hours. ? White count could possibly be exacerbated secondary to steroids however may also be secondary to severe pneumonia. Will trend. ? Check procalcitonin daily, CRP, ESR. ? Consider repeat imaging in next 48 hours if no improvement. Will keep a close eye out for parapneumonic effusion versus empyema. Currently it is not present on initial CT from admission ? Continue to wean down oxygen as able. Patient baseline 2 to 3 L at home. ? Add dual pseudomonal coverage. Continue levofloxacin and meropenem IV ? Continue vancomycin ? Check MRSA nares ? Await sputum culture Gram stain ? Check blood cultures ? Bacterial antigen Legionella, Streptococcus pending ? Continue insulin sliding scale ? Continue heparin subcu twice daily ? Will place on IV fluids secondary to sepsis. Normal saline 100 cc/h. Will give fluid bolus normal saline 1 L at this time. Patient has been tacky since admission. Full code DVT prophylaxis: Heparin subcu twice daily 09/22/2024 -Continue vancomycin, meropenem, Levaquin for dual pseudomonal coverage at this time at this time. -Check MRSA nares swab ? Await sputum culture Gram stain ? Blood cultures negative to date, bacterial antigen Legionella Streptococcus negative to date ? Placed on Lasix 40 IV daily. ? Echo does show grade 1 x 4 diastolic dysfunction, EF 65%. ? lasix 40 iv x1 today Continue lopressor 12.5 bid ? Procalcitonin, CRP, ESR daily ? continue Solu-Medrol 40 daily. ? Continue on DVT prophylaxis with heparin subcu twice daily ? Order physical therapy Full code DVT prophylaxis: SCDs and heparin. Attestations 2 Medical Necessity Statement*: Continue to hospitalize for severe sepsis secondary to pneumonia. Diagnoses Severe sepsis A41.9; R65.20 Pneumonia J18.9 Pulmonary emphysema, unspecified emphysema type J43.9 COPD type: emphysema Emphysema type: unspecified Dyslipidemia E78.5 Benign hypertension I10 Arteriosclerosis I70.90 Type 2 diabetes mellitus with hyperglycemia, without long-term current use of insulin E11.65 Diabetes mellitus type: type 2 Gastroesophageal reflux disease without esophagitis K21.9 Esophagitis presence: without esophagitis
[2024-09-22] MEDS: FUROsemide 10 mg/mL SDV 4mL 40 MG IVP (14:45)
[2024-09-22 16:40] LABS: Glucose Point of Care 291 mg/dL (70-110)
[2024-09-22 20:55] LABS: Glucose Point of Care 378 mg/dL (70-110)
[2024-09-23] VITALS (17 sets, daily range): BP systolic 116–165; BP diastolic 56–80; PULSE 80–112; RESP 16–25; TEMP 36.4–36.6; O2SAT 90–96
[2024-09-23] MEDS: ipratropium-albuterol 3 mL Neb INHALATION ×6 (00:22→20:26)
[2024-09-23] MEDS: acetylcysteine 200 mg/mL MDV 10 mL INHALATION ×3 (00:22→08:24)
[2024-09-23] MEDS: meropenem 1,000 mg SDV 1000 MG IVP ×3 (05:53→23:18)
[2024-09-23 06:20] LABS: Glucose Point of Care 176 mg/dL (70-110)
[2024-09-23] MEDS: budesonide 0.5 mg/2 mL Neb INHALATION ×2 (08:24→20:26)
[2024-09-23] MEDS: methylPREDNISolone sod succ 40 mg/mL INJ IVP (08:31)
[2024-09-23] MEDS: levofloxacin-dextrose 5 % 750 MG/150 ML PREMIX 100 MG IV (08:31)
[2024-09-23] MEDS: insulin lispro 100 unit/1 mL SUBCUT ×4 (08:32→21:18)
[2024-09-23 08:36] LABS: Basophils % 0.1 %; Eosinophils % 0.1 %; Hematocrit 41.7 % (37-53); Lymphocytes # 1.2 10^3/uL (0.8-4.8); Lymphocytes % 8.5 %; Mean Corpuscular HGB Conc 31.9 g/dL (30-55); Mean Platelet Volume 9.7 fL (7.4-10.4); Monocytes # 0.5 10^3/uL (0.2-0.9); Monocytes % 3.7 %; Neutrophils # 11.74 10^3/uL (1.8-7.7); Neutrophils % 86.3 %; Nucleated Red Blood Cells % 0 %; Platelet Count 310 10^3/cmm (157-399); Red Blood Count 4.58 10^6/uL (3.85-5.65); Red Cell Distribution Width 14.4 % (12.1-15.1)
[2024-09-23 08:53] LABS: Vancomycin Trough 19.5 ug/mL (10-15)
[2024-09-23] MEDS: atorvastatin 40 mg Tablet 20 MG PO (08:53)
[2024-09-23] MEDS: pantoprazole DR 40 mg Tablet 20 MG PO (08:54)
[2024-09-23] MEDS: guaiFENesin 600 mg Tablet PO ×2 (08:54→17:56)
[2024-09-23] MEDS: clopidogrel 75 mg Tablet PO (08:54)
[2024-09-23] MEDS: losartan 50 mg Tablet 100 MG PO (08:54)
[2024-09-23] MEDS: allopurinol 300 mg Tablet PO (08:54)
[2024-09-23] MEDS: levothyroxine 75 mcg Tablet PO (08:55)
[2024-09-23] MEDS: aspirin 81 mg EC Tablet PO (08:55)
[2024-09-23] MEDS: metoprolol tartrate 25 mg Tablet 12.5 MG PO ×2 (08:55→21:18)
[2024-09-23 08:57] LABS: Anion Gap 11.8 (5-19); Blood Urea Nitrogen 32 mg/dL (8-23); Calcium 8.3 mg/dL (8.5-10.5); Carbon Dioxide 32 mmol/L (22-29); Chloride 95 mmol/L (98-107); Creatinine Clr Calc Pharmacy 70.6519; Glucose 245 mg/dL (65-115); Magnesium 1.6 mg/dL (1.7-2.3); Osmolality Calculated 295 mOsm/kg (285-295); Potassium 3.8 mmol/L (3.5-5.1); Sodium 135 mmol/L (136-145)
[2024-09-23] MEDS: VANCOMYCIN ADD-Vantage 750 MG in 0.9% NaCl ADD-Vantage 250 ML 250 MG IV ×2 (10:18→21:18)
[2024-09-23 10:40] LABS: Glucose Point of Care 237 mg/dL (70-110)
[2024-09-23] MEDS: heparin 5,000 unit/mL INJ 1 mL 5000 UNIT SUBCUT ×2 (11:49→23:18)
[2024-09-23] MEDS: polyethylene glycol 3350 Pkt 17 gm PO (14:16)
[2024-09-23] MEDS: lactulose oral liq 20 gm/30 mL UDC PO (14:16)
[2024-09-23] MEDS: FUROsemide 10 mg/mL SDV 4mL 40 MG IVP (14:16)
--- NOTE | 2024-09-23 14:46 | P.PN_ITS ---
Subjective 2 Subjective: Seen this morning. Patient back to baseline nasal cannula 3 L that he takes at home and not desaturating upon movement. Feeling better. Has a lot of family at the bedside Significantly weak Vitals/I&O/Wt Last Vital Signs Temp 97.7 F 09/23/24 12:00 Pulse 107 H 09/23/24 12:00 Resp 16 09/23/24 12:00 BP 122/56 09/23/24 12:00 Pulse Ox 92 09/23/24 12:00 O2 Del Method Nasal Cannula 09/23/24 12:00 O2 Flow Rate 3 09/23/24 11:35 FiO2 40 09/23/24 00:00 09/22/24 09/23/24 09/23/24 22:59 06:59 14:59 Intake Total 490 / 1490 640 / 640 Output Total 1700 / 2000 450 / 2450 200 / 200 Balance -1210 / -510 -450 / -960 440 / 440 Weight last 48 hrs Weight 72.439 kg Weight 68.719 kg Physical Exam 2 Narrative: General: Patient is awake. No acute distress. Head: Normocephalic. Cardiovascular: No gallops. No murmurs. No peripheral edema. On 3 L nasal cannula. Saturating 92%. Lungs: mild diffuse rhonchi throughout lung lazo. Abdomen: Normal bowel sounds, abdomen soft and nontender. Extremities: No cyanosis or clubbing. Data 09/23/24 08:26 09/23/24 08:26 Micro: Microbiology 09/17/24 23:53 Blood Culture - Final Blood NO GROWTH AFTER 5 DAYS 09/17/24 23:49 Blood Culture - Final Blood NO GROWTH AFTER 5 DAYS A&P Assessment and plan (1) Severe sepsis: Severe sepsis secondary to bilateral pneumonia SIRS: Tachycardia, leukocytosis, tachypnea Endorgan damage: Acute on chronic hypoxic respiratory failure IV fluid resuscitation with 30 mL/kg body weight normal saline Start broad-spectrum antibiotics with vancomycin and meropenem MRSA screen Telemetry Strict I's and O's Daily weights Supportive care (2) Pneumonia: Bilateral community-acquired pneumonia, failing oral antibiotics with cefdinir Start broad-spectrum antibiotics as noted above with meropenem/vancomycin Bacterial antigens requested Sputum culture pending Encourage pulmonary toilet (3) COPD (chronic obstructive pulmonary disease): Acute COPD exacerbation with acute on chronic hypoxic respiratory failure Start budesonide nebs Start scheduled albuterol nebs Treat underlying pneumonia sepsis as noted above Supplemental oxygen support RT eval and treat Qualifiers: COPD type: emphysema Emphysema type: unspecified Qualified Code(s): J 43.9 - Emphysema, unspecified (4) Dyslipidemia: Continue statin (5) Benign hypertension: Continue ARB (6) Arteriosclerosis: Continue dual antiplatelet therapy with aspirin and Plavix Continue statin (7) Diabetes mellitus with hyperglycemia, without long-term current use of insulin: Hold home glipizide and metformin Monitor for hyperglycemia in the setting of IV steroid use Start moderate scale sliding scale insulin correction Qualifiers: Diabetes mellitus type: type 2 Qualified Code(s): E11.65 - Type 2 diabetes mellitus with hyperglycemia (8) GERD (gastroesophageal reflux disease): Continue PPI Qualifiers: Esophagitis presence: without esophagitis Qualified Code(s): K21.9 - Gastro-esophageal reflux disease without esophagitis Plan DVT prophylaxis: Lovenox CODE STATUS: Full code #Severe sepsis secondary to bilateral pneumonia #History of bronchiectasis #History of pneumonia in the past #Hypertension #Diabetes mellitus #GERD #Underlying COPD ? Patient tachycardic since admission. PE ruled out. Will check EKG. ? Currently on 5 L nasal cannula. Procalcitonin 1.33, C-reactive protein 339, ESR 115. White count 31,000. ? Patient was on Solu-Medrol 40 every 6 hours. Will switch to every 12 hours. ? White count could possibly be exacerbated secondary to steroids however may also be secondary to severe pneumonia. Will trend. ? Check procalcitonin daily, CRP, ESR. ? Consider repeat imaging in next 48 hours if no improvement. Will keep a close eye out for parapneumonic effusion versus empyema. Currently it is not present on initial CT from admission ? Continue to wean down oxygen as able. Patient baseline 2 to 3 L at home. ? Add dual pseudomonal coverage. Continue levofloxacin and meropenem IV ? Continue vancomycin ? Check MRSA nares ? Await sputum culture Gram stain ? Check blood cultures ? Bacterial antigen Legionella, Streptococcus pending ? Continue insulin sliding scale ? Continue heparin subcu twice daily ? Will place on IV fluids secondary to sepsis. Normal saline 100 cc/h. Will give fluid bolus normal saline 1 L at this time. Patient has been tacky since admission. Full code DVT prophylaxis: Heparin subcu twice daily 09/23/2024 -Continue vancomycin, meropenem, Levaquin for dual pseudomonal coverage at this time at this time. -Check MRSA nares swab?pending ? Await sputum culture Gram stain?pending ? Blood cultures negative to date, bacterial antigen Legionella Streptococcus negative to date ? Placed on Lasix 40 IV daily. ? Echo does show grade 1 x 4 diastolic dysfunction, EF 65%. Continue lopressor 12.5 bid ? Procalcitonin, CRP, ESR daily?trending down. ? continue Solu-Medrol 40 daily. ? Continue on DVT prophylaxis with heparin subcu twice daily ? Order physical therapy ? Patient is finally back to baseline oxygen. However he is significantly weak and will desaturate upon exertion however that has improved. He will need to have physical therapy assessment. He may be able to discharge home in the next 24 to 48 hours versus [facility] for rehab if he requires it. Full code DVT prophylaxis: SCDs and heparin. Attestations 2 Medical Necessity Statement*: Continue to hospitalize for severe sepsis secondary to pneumonia. Diagnoses Severe sepsis A41.9; R65.20 Pneumonia J18.9 Pulmonary emphysema, unspecified emphysema type J43.9 COPD type: emphysema Emphysema type: unspecified Dyslipidemia E78.5 Benign hypertension I10 Arteriosclerosis I70.90 Type 2 diabetes mellitus with hyperglycemia, without long-term current use of insulin E11.65 Diabetes mellitus type: type 2 Gastroesophageal reflux disease without esophagitis K21.9 Esophagitis presence: without esophagitis
[2024-09-23] MEDS: magnesium sulfate premix 2 GM/50 ML PIGGYBACK IV (15:31)
[2024-09-23 16:55] LABS: Glucose Point of Care 377 mg/dL (70-110)
[2024-09-23 20:48] LABS: Glucose Point of Care 402 mg/dL (70-110)
[2024-09-23] MEDS: blistex lip oint 7 gm Tube 1 APPLIC TOPICAL (21:18)
[2024-09-24] VITALS (18 sets, daily range): BP systolic 110–159; BP diastolic 56–76; PULSE 73–110; RESP 17–28; TEMP 36.4–36.8; O2SAT 92–99
[2024-09-24] MEDS: ipratropium-albuterol 3 mL Neb INHALATION ×6 (00:53→20:57)
[2024-09-24 06:01] LABS: Basophils % 0.2 %; Eosinophils % 0.3 %; Hematocrit 42.2 % (37-53); Lymphocytes # 1.3 10^3/uL (0.8-4.8); Lymphocytes % 11.6 %; Mean Corpuscular Volume 90.8 fl (82-101); Mean Platelet Volume 10.2 fL (7.4-10.4); Monocytes # 0.4 10^3/uL (0.2-0.9); Monocytes % 3.7 %; Neutrophils # 9.36 10^3/uL (1.8-7.7); Neutrophils % 82.4 %; Nucleated Red Blood Cells % 0 %; Platelet Count 318 10^3/cmm (157-399); Red Blood Count 4.65 10^6/uL (3.85-5.65); White Blood Count 11.35 10^3/uL (3.29-11.43)
[2024-09-24 06:12] LABS: Blood Urea Nitrogen 38 mg/dL (8-23); Calcium 8.8 mg/dL (8.5-10.5); Carbon Dioxide 34 mmol/L (22-29); Chloride 93 mmol/L (98-107); Creatinine Clr Calc Pharmacy 62.5142; Glucose 143 mg/dL (65-115); Osmolality Calculated 294 mOsm/kg (285-295); Phosphorus 2.9 mg/dL (2.5-4.5); Sodium 136 mmol/L (136-145)
[2024-09-24 06:23] LABS: Glucose Point of Care 161 mg/dL (70-110)
[2024-09-24] MEDS: meropenem 1,000 mg SDV 1000 MG IVP ×2 (06:34→13:56)
[2024-09-24] MEDS: budesonide 0.5 mg/2 mL Neb INHALATION ×2 (08:40→20:57)
[2024-09-24] MEDS: insulin lispro 100 unit/1 mL SUBCUT ×4 (09:12→21:12)
[2024-09-24] MEDS: aspirin 81 mg EC Tablet PO (09:15)
[2024-09-24] MEDS: levothyroxine 75 mcg Tablet PO (09:15)
[2024-09-24] MEDS: losartan 50 mg Tablet 100 MG PO (09:15)
[2024-09-24] MEDS: polyethylene glycol 3350 Pkt 17 gm PO (09:16)
[2024-09-24] MEDS: pantoprazole DR 40 mg Tablet 20 MG PO (09:16)
[2024-09-24] MEDS: atorvastatin 40 mg Tablet 20 MG PO (09:16)
[2024-09-24] MEDS: allopurinol 300 mg Tablet PO (09:16)
[2024-09-24] MEDS: methylPREDNISolone sod succ 40 mg/mL INJ IVP (09:16)
[2024-09-24] MEDS: clopidogrel 75 mg Tablet PO (09:17)
[2024-09-24] MEDS: metoprolol tartrate 25 mg Tablet 12.5 MG PO ×2 (09:17→19:51)
[2024-09-24] MEDS: levofloxacin-dextrose 5 % 750 MG/150 ML PREMIX 100 MG IV (09:17)
[2024-09-24] MEDS: guaiFENesin 600 mg Tablet PO ×2 (09:17→17:56)
[2024-09-24] MEDS: VANCOMYCIN ADD-Vantage 750 MG in 0.9% NaCl ADD-Vantage 250 ML 250 MG IV (10:14)
[2024-09-24] MEDS: heparin 5,000 unit/mL INJ 1 mL 5000 UNIT SUBCUT (10:57)
[2024-09-24 11:19] LABS: Glucose Point of Care 247 mg/dL (70-110)
[2024-09-24] MEDS: acetaZOLAMIDE 250 mg Tablet 500 MG PO (11:26)
--- NOTE | 2024-09-24 11:27 | ECG_ITS ---
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 Measurements Intervals [place] Rate: 87 P: 64 MO: 129 QRS: 37 QRSD: 89 T: 58 QT: 344 QTc: 415 Interpretive Statements SINUS RHYTHM Compared to ECG 09/19/2024 14:13:16 Sinus tachycardia no longer present Electronically Signed On 09-24-2024 23:54:59 CDT by Pritesh Zambrano M.D. [email or web address]
--- NOTE | 2024-09-24 12:04 | PC.SOCIAL ---
IMM Update pg 2 of IMM Updated and reviewed w/ patient. Copy provided and copy dated, initialed and placed in chart.
[2024-09-24 12:29] LABS: Procalcitonin 0.22 ng/mL (0-0.5)
[2024-09-24 12:50] LABS: C Reactive Protein 38.4 mg/L (0.0-4.9); Iron 79 ug/dL (59-158); Percent Saturation 50.3 % (20-50); Total Iron Binding Capacity 157 mcg/dl; Unsaturated Iron Binding 78 ug/dL (112-347)
[2024-09-24 13:47] LABS: Adenovirus Not Detected (NOT DETECT); Chlamydia Pneumoniae Not Detected (NOT DETECT); Coronavirus 229E,HKU1,NL63,OC4 Not Detected (NOT DETECT); Human Metapneumovirus Not Detected (NOT DETECT); Human Rhinovirus/Enterovirus Not Detected (NOT DETECT); Influenza A Not Detected (NOT DETECT); Influenza A H1 Not Detected (NOT DETECT); Influenza A H1-2009 Not Detected (NOT DETECT); Influenza A H3 Not Detected (NOT DETECT); Influenza B Not Detected (NOT DETECT); Mycoplasma Pneumoniae Not Detected (NOT DETECT); Parainfluenza Virus Type 1 Not Detected (NOT DETECT); Parainfluenza Virus Type 2 Not Detected (NOT DETECT); Parainfluenza Virus Type 3 Not Detected (NOT DETECT); Parainfluenza Virus Type 4 Not Detected (NOT DETECT); Respiratory Syncytial Virus A Not Detected (NOT DETECT); Respiratory Syncytial Virus B Not Detected (NOT DETECT); SARS-COV-2 Not Detected (NOT DETECT)
[2024-09-24] MEDS: nystatin 100,000 unit/mL UDC 5 mL 100000 UNIT PO ×3 (13:57→19:51)
--- NOTE | 2024-09-24 14:28 | P.PN_ITS ---
Subjective 2 Subjective: Hospital course, labs appreciated. Seen with spouse at bedside. Patient is sitting comfortably in bed, frail and chronically weak appearing. Currently on 4 L of oxygen supplementation. States that in the morning he worked with physical therapy and has been walking up to the bathroom. Did had difficulty in breathing for which he was put on 4 L on exertion today morning. States feeling a lot better than when he came in. Having cough without expectoration now. Vitals/I&O/Wt Last Vital Signs Temp 97.9 F 09/24/24 11:37 Pulse 99 09/24/24 11:45 Resp 24 H 09/24/24 11:45 BP 126/72 09/24/24 11:37 Pulse Ox 94 09/24/24 11:45 O2 Del Method Nasal Cannula 09/24/24 11:45 O2 Flow Rate 4 09/24/24 11:45 FiO2 40 09/24/24 00:45 09/23/24 09/24/24 09/24/24 22:59 06:59 14:59 Intake Total 540 / 1300 480 / 1780 1120 / 1120 Output Total 1150 / 1350 Balance -610 / -50 480 / 430 1120 / 1120 Weight last 48 hrs Weight 71.622 kg Weight 72.439 kg Physical Exam 2 Narrative: General: Patient is awake. No acute distress. Head: Normocephalic. Cardiovascular: No gallops. No murmurs. No peripheral edema. On 3 L nasal cannula. Saturating 92%. Lungs: mild diffuse rhonchi throughout lung lazo. Abdomen: Normal bowel sounds, abdomen soft and nontender. Extremities: No cyanosis or clubbing. Data 09/24/24 05:05 09/24/24 05:05 A&P Assessment and plan (1) Hypoxic respiratory failure: Baseline 2 L of oxygen supplementation. Currently requiring up to 4 L. Desaturating on minimal ambulation. Insetting of COPD exacerbation from pneumonia. Treatment of pneumonia as below. Oxygen supplementation keeping saturation over 90%. Last echocardiogram showed an EF of 65% with grade 1 diastolic dysfunction, mild LVH, mild to moderate mitral annular calcification, trace mitral and tricuspid regurgitation. Patient has been on IV daily Lasix. Developing contraction alkalosis. Hold off on diuretics for now. Start on acetazolamide 250 mg daily. Monitor bicarb daily. (2) Pneumonia: Bilateral community-acquired pneumonia with concerns for aspiration pneumonitis. Failure to outpatient antibiotics. Failing oral antibiotics with cefdinir MRSA swab negative. Sputum culture not available. Urine Legionella, bacterial antigen negative. Continue with IV meropenem. Discontinue Levaquin and vancomycin. Aggressive pulmonary toilet with I-S and Acapella. Out of bed to chair. Supplementation keeping saturation over 90%. Pulmicort twice daily, DuoNeb every 4 hour. Wean Solu-Medrol to 40 mg IV daily. Concern for aspiration pneumonitis. Speech evaluation with modified barium swallow evaluation. Change consistency of diet accordingly. (3) COPD (chronic obstructive pulmonary disease): And mild exacerbation. Treatment as above. Qualifiers: COPD type: emphysema Emphysema type: unspecified Qualified Code(s): J 43.9 - Emphysema, unspecified (4) Dyslipidemia: Continue statin (5) Benign hypertension: Goal blood pressure less than 140/90 mmHg. Continue with home dose of losartan. (6) Arteriosclerosis: No active chest pain. Continue dual antiplatelet therapy with aspirin and Plavix Continue statin (7) Diabetes mellitus with hyperglycemia, without long-term current use of insulin: A1c recently checked was 7.1. Hold home glipizide and metformin Monitor for hyperglycemia in the setting of IV steroid use Start moderate scale sliding scale insulin correction Qualifiers: Diabetes mellitus type: type 2 Qualified Code(s): E11.65 - Type 2 diabetes mellitus with hyperglycemia (8) GERD (gastroesophageal reflux disease): Continue PPI Qualifiers: Esophagitis presence: without esophagitis Qualified Code(s): K21.9 - Gastro-esophageal reflux disease without esophagitis (9) Severe sepsis: Present on admission. Resolved now. Plan Full code Change diet consistency as per speech evaluation. Carb consistent Protonix for PUD prophylaxis Heparin for DVT prophylaxis Discharge plan: Patient lives at home with spouse. Given pneumonia patient is physically deconditioned. Would benefit from physical therapy as an outpatient. Family verbalizes understanding and requesting home health. Plan to discharge in next 24 to 48 hours Home with home health. Attestations 2 Medical Necessity Statement*: Requires further hospitalization for management of hypoxic respiratory failure in setting of COPD exacerbation from pneumonia with concerns for aspiration pneumonitis Diagnoses Hypoxic respiratory failure J96.91 Pneumonia J18.9 Pulmonary emphysema, unspecified emphysema type J43.9 COPD type: emphysema Emphysema type: unspecified Dyslipidemia E78.5 Benign hypertension I10 Arteriosclerosis I70.90 Type 2 diabetes mellitus with hyperglycemia, without long-term current use of insulin E11.65 Diabetes mellitus type: type 2 Gastroesophageal reflux disease without esophagitis K21.9 Esophagitis presence: without esophagitis Severe sepsis A41.9; R65.20
[2024-09-24 15:47] LABS: Glucose Point of Care 286 mg/dL (70-110)
[2024-09-24 21:07] LABS: Glucose Point of Care 294 mg/dL (70-110)
[2024-09-25] VITALS (17 sets, daily range): BP systolic 106–137; BP diastolic 57–66; PULSE 74–112; RESP 16–25; TEMP 36.4–36.8; O2SAT 90–98
[2024-09-25] MEDS: ipratropium-albuterol 3 mL Neb INHALATION ×7 (00:12→23:42)
[2024-09-25] MEDS: heparin 5,000 unit/mL INJ 1 mL 5000 UNIT SUBCUT ×3 (00:20→23:46)
[2024-09-25] MEDS: meropenem 1,000 mg SDV 1000 MG IVP (00:20)
[2024-09-25 06:20] LABS: Basophils % 0.1 %; Eosinophils # 0.1 10^3/uL (0.0-0.8); Eosinophils % 0.5 %; Lymphocytes # 1.4 10^3/uL (0.8-4.8); Lymphocytes % 14.1 %; Mean Corpuscular Hemoglobin 28.1 pg (27-33); Mean Corpuscular Volume 90.9 fl (82-101); Monocytes # 0.4 10^3/uL (0.2-0.9); Monocytes % 4.2 %; Neutrophils % 78.3 %; Nucleated Red Blood Cells % 0 %; Platelet Count 358 10^3/cmm (157-399); Red Blood Count 4.62 10^6/uL (3.85-5.65); Red Cell Distribution Width 14.4 % (12.1-15.1); White Blood Count 9.58 10^3/uL (3.29-11.43)
[2024-09-25 06:29] LABS: Glucose Point of Care 140 mg/dL (70-110)
[2024-09-25 06:46] LABS: Alanine Aminotransferase 33 U/L (0-41); Albumin Level 2.7 g/dL (3.5-5.2); Alkaline Phosphatase 75 U/L (40-130); Anion Gap 12.5 (5-19); Aspartate Amino Transferase 14 U/L (0-40); Blood Urea Nitrogen 37 mg/dL (8-23); Calcium 8.6 mg/dL (8.5-10.5); Carbon Dioxide 31 mmol/L (22-29); Chloride 96 mmol/L (98-107); Creatinine Clr Calc Pharmacy 55.9898; Globulin 3.1 g/dL (1.3-4.6); Glucose 128 mg/dL (65-115); Osmolality Calculated 292 mOsm/kg (285-295); Potassium 3.5 mmol/L (3.5-5.1); Sodium 136 mmol/L (136-145); Total Bilirubin 0.6 mg/dL (0.15-1.2); Total Protein 5.8 g/dL (6.6-8.7)
[2024-09-25] MEDS: acetaZOLAMIDE 250 mg Tablet 500 MG PO (08:07)
[2024-09-25] MEDS: guaiFENesin 600 mg Tablet PO ×2 (08:07→17:40)
[2024-09-25] MEDS: aspirin 81 mg EC Tablet PO (08:07)
[2024-09-25] MEDS: atorvastatin 40 mg Tablet 20 MG PO (08:07)
[2024-09-25] MEDS: pantoprazole DR 40 mg Tablet 20 MG PO (08:07)
[2024-09-25] MEDS: losartan 50 mg Tablet 100 MG PO (08:08)
[2024-09-25] MEDS: levothyroxine 75 mcg Tablet PO (08:08)
[2024-09-25] MEDS: nystatin 100,000 unit/mL UDC 5 mL 100000 UNIT PO ×4 (08:09→21:26)
[2024-09-25] MEDS: metoprolol tartrate 25 mg Tablet 12.5 MG PO ×2 (08:09→21:25)
[2024-09-25] MEDS: methylPREDNISolone sod succ 40 mg/mL INJ IVP (08:09)
[2024-09-25] MEDS: allopurinol 300 mg Tablet PO (08:09)
[2024-09-25] MEDS: clopidogrel 75 mg Tablet PO (08:09)
[2024-09-25] MEDS: budesonide 0.5 mg/2 mL Neb INHALATION ×2 (08:25→20:45)
--- NOTE | 2024-09-25 11:10 | FL_ITS ---
WS: [id number] MODIFIED BARIUM SWALLOW TECHNIQUE: Modified barium swallow with speech therapy using multiple consistencies. FLUOROSCOPY TIME: 2min [id number] CLINICAL INFORMATION: Oral dysphagia COMPARISON: None. FINDINGS: Multiple consistencies utilized. Straightening with slight reversal normal cervical lordosis. Delayed oropharyngeal phase. Penetration with thin liquids. No evidence of marlene aspiration. Residue in the vallecula with multiple consistencies. No difficulties with the barium tablet. FL/FL barium swallow modifd [id number] IMPRESSION: 1. Penetration with thin liquids. No evidence of marlene aspiration. 2. Multiple consistencies demonstrate delayed oropharyngeal phase with residue 3. No difficulties with barium tablet
[2024-09-25 11:47] LABS: Glucose Point of Care 329 mg/dL (70-110)
[2024-09-25] MEDS: insulin lispro 100 unit/1 mL SUBCUT ×3 (12:23→21:26)
--- NOTE | 2024-09-25 12:43 | P.PN_ITS ---
Subjective 2 Subjective: No acute events overnight. Seen with spouse. Sitting up in chair. Patient states he really wants to go home today. He states 'the longer he stays in the hospital he thinks he is going to lose his mind'. We discussed unfortunately patient is on 4 L of ox supplementation and desaturating on minimal ambulation which makes him at a higher risk of decompensation at home. Also discussed that right now he is weak and not able to clear his lungs with concern for aspiration. After discussion in detail and persuasion with patient has agreed to state. He is currently on 4 L. Denies any nausea, vomiting, headache. States breathing is improving back to his baseline though he is on oxygen supplementation. Vitals/I&O/Wt Last Vital Signs Temp 98.0 F 09/25/24 12:01 Pulse 101 H 09/25/24 12:01 Resp 18 09/25/24 12:01 BP 106/57 09/25/24 12:01 Pulse Ox 90 09/25/24 12:01 O2 Del Method Nasal Cannula 09/25/24 12:01 O2 Flow Rate 4 09/25/24 11:30 FiO2 40 09/25/24 00:00 09/24/24 09/25/24 09/25/24 22:59 06:59 14:59 Intake Total 390 / 1510 720 / 720 Output Total 400 / 400 700 / 1100 475 / 475 Balance -1109 -700 / 410 245 / 245 Weight last 48 hrs Weight 70.76 kg Weight 71.622 kg Physical Exam 2 Narrative: General: Patient is awake. No acute distress. Head: Normocephalic. Cardiovascular: No gallops. No murmurs. No peripheral edema. On 3 L nasal cannula. Saturating 92%. Lungs: mild diffuse rhonchi throughout lung lazo. Abdomen: Normal bowel sounds, abdomen soft and nontender. Extremities: No cyanosis or clubbing. Data 09/25/24 05:28 09/25/24 05:28 A&P Assessment and plan (1) Hypoxic respiratory failure: Baseline 2 L of oxygen supplementation. Currently requiring up to 4 L. Desaturating on minimal ambulation. Insetting of COPD exacerbation from pneumonia. Treatment of pneumonia as below. Oxygen supplementation keeping saturation over 90%. Last echocardiogram showed an EF of 65% with grade 1 diastolic dysfunction, mild LVH, mild to moderate mitral annular calcification, trace mitral and tricuspid regurgitation. Patient has been on IV daily Lasix. Developing contraction alkalosis with slight improvement today. Continue to hold off on diuretics for now. Continue with acetazolamide 250 mg daily. Monitor bicarb daily. (2) Pneumonia: Bilateral community-acquired pneumonia with concerns for aspiration pneumonitis. Failure to outpatient antibiotics. Failing oral antibiotics with cefdinir MRSA swab negative. Sputum culture not available. Urine Legionella, bacterial antigen negative. Continue with IV meropenem. Discontinue Levaquin and vancomycin. Aggressive pulmonary toilet with I-S and Acapella. Add chest vest Out of bed to chair. Supplementation keeping saturation over 90%. Hold off of BiPAP for now. Pulmicort twice daily, DuoNeb every 4 hour. Change Solu-Medrol 40 mg IV daily to prednisone oral 40 mg daily Concern for aspiration pneumonitis. Appreciate speech evaluation without much concern for aspiration. Awaiting modified barium swallow. Change consistency of diet accordingly. Continue with nystatin swish and swallow for oral thrush. Improving. (3) COPD (chronic obstructive pulmonary disease): And mild exacerbation. Treatment as above. Qualifiers: COPD type: emphysema Emphysema type: unspecified Qualified Code(s): J 43.9 - Emphysema, unspecified (4) Dyslipidemia: Continue statin (5) Benign hypertension: Goal blood pressure less than 140/90 mmHg. Blood pressure is better today. Slightly soft. Decrease dose of losartan to 50 mg oral daily. Continue with home dose of losartan. (6) Arteriosclerosis: No active chest pain. Continue dual antiplatelet therapy with aspirin and Plavix Continue statin (7) Diabetes mellitus with hyperglycemia, without long-term current use of insulin: A1c recently checked was 7.1. Hold home glipizide and metformin Monitor for hyperglycemia in the setting of IV steroid use Continue with moderate scale sliding scale insulin correction. Will add Lantus depending on insulin requirement in next 24 hours. Qualifiers: Diabetes mellitus type: type 2 Qualified Code(s): E11.65 - Type 2 diabetes mellitus with hyperglycemia (8) GERD (gastroesophageal reflux disease): Continue PPI Qualifiers: Esophagitis presence: without esophagitis Qualified Code(s): K21.9 - Gastro-esophageal reflux disease without esophagitis (9) Severe sepsis: Present on admission. Resolved now. Plan Full code Change diet consistency as per speech evaluation. Carb consistent Protonix for PUD prophylaxis Heparin for DVT prophylaxis Add Ambien 5 mg nightly for insomnia. Discharge plan: Patient lives at home with spouse. Given pneumonia patient is physically deconditioned. Would benefit from physical therapy as an outpatient. Family verbalizes understanding and requesting home health. Plan to discharge in next 24 to 48 hours Home with home health. Attestations 2 Medical Necessity Statement*: Requires further hospitalization for management of hypoxic respiratory failure in setting of pneumonia, generalized weakness and elderly with history of COPD Diagnoses Hypoxic respiratory failure J96.91 Pneumonia J18.9 Pulmonary emphysema, unspecified emphysema type J43.9 COPD type: emphysema Emphysema type: unspecified Dyslipidemia E78.5 Benign hypertension I10 Arteriosclerosis I70.90 Type 2 diabetes mellitus with hyperglycemia, without long-term current use of insulin E11.65 Diabetes mellitus type: type 2 Gastroesophageal reflux disease without esophagitis K21.9 Esophagitis presence: without esophagitis Severe sepsis A41.9; R65.20
[2024-09-25 15:56] LABS: Glucose Point of Care 288 mg/dL (70-110)
[2024-09-25 20:03] LABS: Glucose Point of Care 383 mg/dL (70-110)
[2024-09-25] MEDS: zolpidem 5 mg Tablet PO (21:25)
[2024-09-26] VITALS (12 sets, daily range): BP systolic 97–129; BP diastolic 49–68; PULSE 81–98; RESP 16–20; TEMP 36.3–37.1; O2SAT 86–96
[2024-09-26] MEDS: ipratropium-albuterol 3 mL Neb INHALATION ×3 (03:52→11:20)
[2024-09-26 05:36] LABS: Basophils % 0.2 %; Eosinophils # 0.1 10^3/uL (0.0-0.8); Eosinophils % 0.4 %; Hematocrit 42.6 % (37-53); Lymphocytes # 1.5 10^3/uL (0.8-4.8); Lymphocytes % 12.7 %; Mean Corpuscular HGB Conc 31.2 g/dL (30-55); Mean Corpuscular Hemoglobin 28.7 pg (27-33); Mean Platelet Volume 9.7 fL (7.4-10.4); Monocytes # 0.5 10^3/uL (0.2-0.9); Monocytes % 4.1 %; Neutrophils # 9.23 10^3/uL (1.8-7.7); Neutrophils % 80.1 %; Nucleated Red Blood Cells % 0 %; Platelet Count 424 10^3/cmm (157-399); Red Blood Count 4.63 10^6/uL (3.85-5.65); Red Cell Distribution Width 14.6 % (12.1-15.1); White Blood Count 11.53 10^3/uL (3.29-11.43)
[2024-09-26 06:03] LABS: Alanine Aminotransferase 28 U/L (0-41); Albumin Level 2.7 g/dL (3.5-5.2); Alkaline Phosphatase 74 U/L (40-130); Aspartate Amino Transferase 18 U/L (0-40); Blood Urea Nitrogen 41 mg/dL (8-23); Calcium 8.6 mg/dL (8.5-10.5); Carbon Dioxide 30 mmol/L (22-29); Chloride 100 mmol/L (98-107); Creatinine Clr Calc Pharmacy 55.9898; Globulin 3.1 g/dL (1.3-4.6); Glucose 109 mg/dL (65-115); Osmolality Calculated 297 mOsm/kg (285-295); Sodium 138 mmol/L (136-145); Total Bilirubin 0.6 mg/dL (0.15-1.2); Total Protein 5.8 g/dL (6.6-8.7)
[2024-09-26 06:23] LABS: Glucose Point of Care 115 mg/dL (70-110)
[2024-09-26] MEDS: budesonide 0.5 mg/2 mL Neb INHALATION (08:49)
[2024-09-26] MEDS: polyethylene glycol 3350 Pkt 17 gm PO (09:20)
[2024-09-26] MEDS: metoprolol tartrate 25 mg Tablet 12.5 MG PO (09:21)
[2024-09-26] MEDS: allopurinol 300 mg Tablet PO (09:21)
[2024-09-26] MEDS: levothyroxine 75 mcg Tablet PO (09:21)
[2024-09-26] MEDS: losartan 50 mg Tablet PO (09:24)
[2024-09-26] MEDS: nystatin 100,000 unit/mL UDC 5 mL 100000 UNIT PO (09:24)
[2024-09-26] MEDS: guaiFENesin 600 mg Tablet PO (09:24)
[2024-09-26] MEDS: clopidogrel 75 mg Tablet PO (09:25)
[2024-09-26] MEDS: pantoprazole DR 40 mg Tablet PO (09:25)
[2024-09-26] MEDS: predniSONE 20 mg Tablet 40 MG PO (09:25)
[2024-09-26] MEDS: aspirin 81 mg EC Tablet PO (09:25)
[2024-09-26] MEDS: acetaZOLAMIDE 250 mg Tablet 500 MG PO (09:25)
[2024-09-26] MEDS: atorvastatin 40 mg Tablet 20 MG PO (09:25)
--- NOTE | 2024-09-26 10:03 | PC.SOCIAL ---
IMM Updated pg 2 of IMM Updated and reviewed w/ patient. Copy provided and copy dated, initialed and placed in chart.
[2024-09-26 11:05] LABS: Glucose Point of Care 332 mg/dL (70-110)
[2024-09-26] MEDS: insulin lispro 100 unit/1 mL SUBCUT (11:51)
[2024-09-26] MEDS: heparin 5,000 unit/mL INJ 1 mL 5000 UNIT SUBCUT (11:51)
--- NOTE | 2024-09-26 11:59 | PM.DCS ---
Discharge Providers Date of Admission: 09/18/24 04:16 Date of Discharge: September 26, 2024 Attending Provider at Admission: Tae Escobar MD Attending Provider at Discharge: Mingo Carey MD Primary Care Provider: OTIS Mead Diagnoses at Discharge Discharge Diagnosis (1) Hypoxic respiratory failure: Status: Acute (2) Pneumonia: Status: Acute (3) COPD (chronic obstructive pulmonary disease): Status: Chronic Qualifiers: COPD type: emphysema Emphysema type: unspecified Qualified Code(s): J43.9 - Emphysema, unspecified (4) Dyslipidemia: Status: Chronic (5) Benign hypertension: Status: Chronic (6) Arteriosclerosis: Status: Chronic (7) Diabetes mellitus with hyperglycemia, without long-term current use of insulin: Status: Chronic Qualifiers: Diabetes mellitus type: type 2 Qualified Code(s): E11.65 - Type 2 diabetes mellitus with hyperglycemia (8) GERD (gastroesophageal reflux disease): Status: Chronic Qualifiers: Esophagitis presence: without esophagitis Qualified Code(s): K21.9 - Gastro-esophageal reflux disease without esophagitis (9) Severe sepsis: Status: Acute Reason for Visit Reason for Visit: SOB Brief History: History as per HPI: Dl Ness is a 83 year old male with a past medical history significant for COPD, type 2 diabetes mellitus, gout, dyslipidemia, hypertension, GERD, and multiple other comorbidities who presents to the emergency department with worsening shortness of breath and cough. Patient reports onset a couple months ago with symptoms rapidly worsening in the past week. He was seen in the emergency department on 09/09 with similar complaints. At that time he was diagnosed with acute right lower lobe pneumonia in the setting of severe chronic bronchiectasis. He was prescribed cefdinir and prednisone. Patient reports despite taking these medications symptoms continued to worsen. He endorses associated cough which he describes as productive. Reports exertion worsens symptoms. Rest improves. Endorses associated generalized fatigue, malaise, and poor oral intake. He reports he typically wears 2 L of oxygen as needed. For the last week or so, he has worn it continuously. In the emergency department, patient was found to be tachypneic and required 6 L of oxygen. Upon my evaluation oxygen have been down titrated to 4 L. He was noted to be significantly tachycardic with heart rate of 144. Labs revealed worsening leukocytosis to 19.57, previously 12. COVID-19, influenza, and RSV were negative. Repeat CT imaging redemonstrated peripheral consolidation in the right lung base with new masslike consolidations in the anterior lateral aspects of the left lower lobe at the periphery of the right middle lobe suspected to be infectious given the rapid progression from the CT scan 8 days prior. Bilateral bronchiectasis with bronchial wall thickening and mucous plugging redemonstrated. Hospital Course Hospital Course Patient was admitted to the hospital for management of severe sepsis in setting of bilateral community-acquired pneumonia along with COPD exacerbation. He was started on treatment with broad-spectrum IV antibiotics, nebulization treatment with supplementation oxygen. His blood pressures remained stable after sepsis IV fluid bolus. Gradually patient improved with improvement in his leukocytosis. He continued to require up to 3 to 4 L of oxygen supplementation at rest and 4 to 5 L on exertion. Patient has finished his course of IV antibiotics. During hospitalization his blood culture and sputum culture remained negative. Patient has been working well with physical therapy and aggressive pulmonary toilet. Patient would improve with prolonged hospitalization for aggressive pulmonary toilet though he is adamant on being discharged. He is at a higher risk of readmission because of failure of his respiratory status at home. Detailed discussions were done with patient about further treatment required. He is agreeable for all the treatment but at home not in the hospital. He has been discharged in hemodynamically stable condition on nebulization treatment, aggressive pulmonary toilet with I-S and Acapella, oral Augmentin and Levaquin for 3 more days and dysphagia level 7 diet. Physical Exam Narrative: General: Patient is awake. No acute distress. Head: Normocephalic. Cardiovascular: No gallops. No murmurs. No peripheral edema. On 3 L nasal cannula. Saturating 92%. Lungs: mild diffuse rhonchi throughout lung lazo. Abdomen: Normal bowel sounds, abdomen soft and nontender. Extremities: No cyanosis or clubbing. Discharge Data Studies Completed and Pending Completed Studies During Hospitalization Category Date Time Status CT angio chest PE protcl 05013 Stat Cat Scan 09/17/24 22:38 Completed FL barium swallow modifd [id number] Routine Exams 09/25/24 11:10 Completed XR chest 1V portable [id number] Routine Exams 09/20/24 08:00 Completed CV. echo complete* [id number] Routine Ultrasound 09/19/24 17:46 Completed Radiology Impressions Chest CTA 09/17/24 22:38 IMPRESSION: 1. No pulmonary emboli. 2. Peripheral consolidations in the right lung base redemonstrated and similar with new masslike consolidations in the anterolateral aspect of the left lower lobe and periphery of the right middle lobe. Findings are thought likely infectious in etiology given the rapid progression. 3. Bronchial wall thickening with bronchiolectasis and mucous plugging in the lung bases, right middle lobe and lingula which are similar to the prior examination. Chest X-Ray 09/20/24 08:00 IMPRESSION: 1. Bibasal pulmonary infiltrates most marked on the LEFT. These findings suggest pneumonia. Modified Barium Swallow 09/25/24 11:10 IMPRESSION: 1. Penetration with thin liquids. No evidence of marlene aspiration. 2. Multiple consistencies demonstrate delayed oropharyngeal phase with residue 3. No difficulties with barium tablet Echocardiogram: CONCLUSIONS .Normal left ventricular size and systolic function, EF 65%.abnormal septal motion consistent with conduction abnormality. Grade I/IV diastolic dysfunction (abnormal relaxation filling pattern), normal to mildly elevated filling pressures. Mild left ventricular hypertrophy. Mild to moderate mitral annular calcification. Trace of mitral and tricuspid valve regurgitation. There is no pericardial effusion. There are no intracardiac masses. Technically limited study because of the poor ultrasonic windows. Only parasternal and subcostal views. No apical views. Dr Pritesh Zambrano MD [facility] (Electronically Signed) Final Date: 20 September 2024 Laboratory Results WBC 11.53 10^3/uL (3.29-11.43) H 09/26/24 05:07 RBC 4.63 10^6/uL (3.85-5.65) 09/26/24 05:07 Hgb 13.30 g/dL (11.27-16.99) 09/26/24 05:07 Hct 42.6 % (37-53) 09/26/24 05:07 MCV 92.0 fl (82-101) 09/26/24 05:07 MCH 28.7 pg (27-33) 09/26/24 05:07 MCHC 31.2 g/dL (30-55) 09/26/24 05:07 RDW 14.6 % (12.1-15.1) 09/26/24 05:07 Plt Count 424 10^3/cmm (157-399) H 09/26/24 05:07 MPV 9.7 fL (7.4-10.4) 09/26/24 05:07 Neut % (Auto) 80.1 % 09/26/24 05:07 Lymph % (Auto) 12.7 % 09/26/24 05:07 [place] % (Auto) 4.1 % 09/26/24 05:07 Eos % (Auto) 0.4 % 09/26/24 05:07 Baso % (Auto) 0.2 % 09/26/24 05:07 Neut # (Auto) 9.23 10^3/uL (1.8-7.7) H 09/26/24 05:07 Lymph # (Auto) 1.5 10^3/uL (0.8-4.8) 09/26/24 05:07 [place] # (Auto) 0.5 10^3/uL (0.2-0.9) 09/26/24 05:07 Eos # (Auto) 0.1 10^3/uL (0.0-0.8) 09/26/24 05:07 Baso # (Auto) 0.0 10^3/uL (0.0-0.1) 09/26/24 05:07 Nucleated RBC % (auto) 0 % 09/26/24 05:07 Nucleated RBCs # 0.0 /100WBC 09/26/24 05:07 ESR 94 mm/hr (0-10) H 09/20/24 05:07 Specimen Type Arterial 09/19/24 03:38 Sample Site Radial, left 09/19/24 03:38 ABG pH 7.42 (7.35-7.45) 09/19/24 03:38 ABG pCO2 42.7 mmHg (35-45) 09/19/24 03:38 ABG pO2 65.1 mmHg (80.0-100.0) L 09/19/24 03:38 ABG PO2/FiO2 Ratio 162 09/19/24 03:38 ABG HCO3 27.8 mmol/L (22-26) H 09/19/24 03:38 ABG O2 Saturation 90.8 09/18/24 08:29 ABG Base Excess 3.0 mmol/L (-2.0-2.0) H 09/19/24 03:38 Chirag Test Pos 09/19/24 03:38 A-a O2 Gradient 26.0 mmHg (5-10) H 09/18/24 08:29 Hematocrit 38.6 % (42-52) L 09/19/24 03:38 Hgb O2 Saturation 90.6 % (95-100) L 09/18/24 08:29 Carboxyhemoglobin 0.8 %THgb (0.4-20.1) 09/18/24 08:29 Methemoglobin < 0.0 % (0.4-1.5) L 09/18/24 08:29 Total Hemoglobin 13.1 g/dL (14-18) L 09/18/24 08:29 Sodium 132.0 mmol/L (131-143) 09/18/24 08:29 Potassium 4.5 mmol/L (3.5-5.0) 09/18/24 08:29 Glucose 148.0 mg/dL (70-115) H 09/18/24 08:29 Ionized Calcium 1.2 mmol/L (1.1-1.4) 09/18/24 08:29 O2 Delivery Device Nc 09/19/24 03:38 O2 Liters/Min 5.0 % 09/19/24 03:38 FiO2 40.0 % 09/19/24 03:38 [employer] Rad[employer] Operator ID Ed 09/19/24 03:38 Sodium 138 mmol/L (136-145) 09/26/24 05:07 Potassium 4.0 mmol/L (3.5-5.1) 09/26/24 05:07 Chloride 100 mmol/L (98-107) 09/26/24 05:07 Carbon Dioxide 30 mmol/L (22-29) H 09/26/24 05:07 Anion Gap 12.0 (5-19) 09/26/24 05:07 BUN 41 mg/dL (8-23) H 09/26/24 05:07 Creatinine 1.0 mg/dL (0.7-1.2) 09/26/24 05:07 GFR Calculation Not Reportable 09/26/24 05:07 Glucose 109 mg/dL (65-115) 09/26/24 05:07 POC Glucose 332 mg/dL (70-110) H 09/26/24 11:02 Calculated Osmolality 297 mOsm/kg (285-295) H 09/26/24 05:07 Lactic Acid 2.1 mmol/L (0.5-2.2) 09/17/24 22:30 Lactic Acid (Sepsis) 1.5 mmol/L (0.5-2.2) 09/18/24 00:24 Calcium 8.6 mg/dL (8.5-10.5) 09/26/24 05:07 Phosphorus 2.9 mg/dL (2.5-4.5) 09/24/24 05:05 Magnesium 2.0 mg/dL (1.7-2.3) 09/24/24 05:05 Iron 79 ug/dL (59-158) 09/24/24 05:05 TIBC 157 mcg/dl 09/24/24 05:05 % Saturation 50.3 % (20-50) H 09/24/24 05:05 Unsat Iron Binding 78 ug/dL (112-347) L 09/24/24 05:05 Total Bilirubin 0.6 mg/dL (0.15-1.2) 09/26/24 05:07 AST 18 U/L (0-40) 09/26/24 05:07 ALT 28 U/L (0-41) 09/26/24 05:07 Alkaline Phosphatase 74 U/L (40-130) 09/26/24 05:07 Troponin T Baseline 34 ng/L (0-15) H 09/17/24 22:30 Troponin T 120 Minute 33.84 ng/L (0-15) H 09/18/24 00:24 Delta Troponin T -0.16 ABS# (0-10) L 09/18/24 00:24 Troponin T Hi Sens 6Hr 35.75 ng/L (0-15) H 09/18/24 04:50 Troponin T Hi Sens 6Hr Delta 1.75 ng/L (0-12) 09/18/24 04:50 C-Reactive Protein 38.4 mg/L (0.0-4.9) H 09/24/24 05:05 Total Protein 5.8 g/dL (6.6-8.7) L 09/26/24 05:07 Albumin 2.7 g/dL (3.5-5.2) L 09/26/24 05:07 Globulin 3.1 g/dL (1.3-4.6) 09/26/24 05:07 Procalcitonin 0.22 ng/mL (0-0.5) 09/24/24 05:05 Nasal MRSA (PCR) Not detected (Negative) 09/18/24 06:19 Vancomycin Trough 19.5 ug/mL (10-15) H 09/23/24 08:26 Adenovirus (PCR) Not detected (NOT DETECT) 09/24/24 10:26 C. pneumoniae DNA (PCR) Not detected (NOT DETECT) 09/24/24 10:26 Coronavirus (PCR) Negative (Negative) 09/17/24 22:48 Coronavirus 229E (PCR) Not detected (NOT DETECT) 09/24/24 10:26 Human Metapneumovir PCR Not detected (NOT DETECT) 09/24/24 10:26 Influenza A (H1) PCR Not detected (NOT DETECT) 09/24/24 10:26 Influenza A (PCR) Negative (Negative) 09/17/24 22:48 Influ A (H1/09) PCR Not detected (NOT DETECT) 09/24/24 10:26 Influenza A (H3) PCR Not detected (NOT DETECT) 09/24/24 10:26 Influenza Type A (PCR) Not detected (NOT DETECT) 09/24/24 10:26 Influenza Type B (PCR) Not detected (NOT DETECT) 09/24/24 10:26 M. pneumoniae (PCR) Not detected (NOT DETECT) 09/24/24 10:26 Parainfluenza 1 (PCR) Not detected (NOT DETECT) 09/24/24 10:26 Parainfluenza 2 (PCR) Not detected (NOT DETECT) 09/24/24 10:26 Parainfluenza 3 (PCR) Not detected (NOT DETECT) 09/24/24 10:26 Parainfluenza 4 (PCR) Not detected (NOT DETECT) 09/24/24 10:26 RSV (PCR) Negative (Negative) 09/17/24 22:48 RSV Type A (PCR) Not detected (NOT DETECT) 09/24/24 10:26 RSV Type B (PCR) Not detected (NOT DETECT) 09/24/24 10:26 Entero/Rhino (PCR) Not detected (NOT DETECT) 09/24/24 10:26 SARS-CoV-2 (PCR) Not detected (NOT DETECT) 09/24/24 10:26 Vitals Last Vital Signs Temp 98.0 F 09/26/24 08:00 Pulse 94 09/26/24 11:20 Resp 20 H 09/26/24 11:20 BP 114/67 09/26/24 09:24 Pulse Ox 90 09/26/24 11:20 O2 Del Method Nasal Cannula 09/26/24 11:20 O2 Flow Rate 4 09/26/24 11:20 FiO2 4 09/26/24 08:49 Discharge Plan Discharge Patient Disposition: Home Condition: Stable Prescriptions: New ipratropium-albuterol 0.5 mg-3 mg(2.5 mg base)/3 mL Solution For Nebulization 3 ml inhalation QID.RESPIRATORY PRN (Reason: Shortness Of Breath) Qty: 90 0RF metoprolol tartrate 25 mg Tablet 12.5 mg PO BID@0900,2100 30 Days Qty: 30 0RF prednisone 20 mg Tablet 40 mg PO DAILY 5 Days Qty: 10 0RF acetazolamide 250 mg Tablet 500 mg PO DAILY 3 Days Qty: 6 0RF amoxicillin-pot clavulanate 875-125 mg tablet 1 tab PO Q12H 3 Days Qty: 6 0RF levofloxacin 750 mg tablet 750 mg PO Q24H 3 Days Qty: 3 0RF Continued ergocalciferol (vitamin D2) 50 mcg (2,000 unit) capsule 50 mcg PO DAILY multivitamin Tablet 1 tab PO DAILY Vision Formula (with lutein) 1,000 unit-200 mg-60 unit-2 mg tablet 1 tab PO DAILY Rx Instructions: administer after a meal albuterol sulfate [Ventolin HFA] 90 mcg/actuation HFA aerosol inhaler 2 puff INHALATION Q4H PRN (Reason: shortness of breath or wheezing) 30 Days Qty: 6.7 2RF allopurinol 300 mg tablet 300 mg PO QDAY 30 Days Qty: 30 2RF aspirin [Adult Low Dose Aspirin] 81 mg tablet,delayed release (DR/EC) 81 mg PO QDAY 30 Days Qty: 30 2RF atorvastatin 20 mg tablet 20 mg PO QDAY 30 Days Qty: 30 2RF clopidogrel [Plavix] 75 mg tablet 75 mg PO QDAY 30 Days Qty: 30 2RF Jardiance 25 mg tablet 25 mg PO QAM Qty: 30 2RF Trelegy Ellipta 100-62.5-25 mcg blister with device 1 inh INHALATION QDAY 30 Days Qty: 28 2RF glipizide 2.5 mg tablet extended release 24hr 2.5 mg PO QDAY 30 Days Qty: 30 2RF guaifenesin [Mucinex] 600 mg tablet extended release 12hr 600 mg PO BID 30 Days Qty: 60 2RF levothyroxine [Synthroid] 75 mcg tablet 75 mcg PO QDAY 30 Days Qty: 30 2RF Repatha SureClick 140 mg/mL pen injector 140 mg SUBCUT .every 14 day Qty: 2 2RF promethazine-DM 6.25-15 mg/5 mL syrup 5 ml PO Q6H PRN (Reason: cough) Qty: 120 0RF (DME) Disp Neb Kit W/mouthpc T& 7 Tubing See Rx Instructions .Route .MEDSUPPLY Qty: 1 2RF Dose Instruction: USE DIRECTED Rx Instructions: USE DIRECTED cyanocobalamin (vitamin B-12) [Vitamin B-12] 2,500 mcg Tablet, Sublingual 2,500 mcg SUBLINGUAL DAILY latanoprost 0.005 % drops 1 drp ophthalmic (eye) BEDTIME brimonidine 0.2 % drops 1 drp ophthalmic (eye) BID dorzolamide-timolol 22.3-6.8 mg/mL drops 1 drp ophthalmic (eye) BID moxifloxacin 0.5 % drops 1 drp ophthalmic (eye) TID Changed pantoprazole 20 mg tablet,delayed release (DR/EC) 40 mg PO DAILY Qty: 30 2RF losartan 100 mg tablet 50 mg PO QDAY 30 Days Qty: 30 2RF Discontinued metformin 500 mg tablet 500 mg PO BID 30 Days Qty: 60 2RF cefdinir 300 mg capsule 300 mg PO BID 10 Days Qty: 20 0RF Discharge Orders: Discharge Order (Routine); Ordered 09/26/24 Ordered By: Mingo Carey Other Ambulatory Orders: DME: John (Order) Location: None Selected Ordered By: Mingo Carey Referrals: Pete Barboza [email or web address] [Primary Care Provider] - 10/02/24 3:00 pm Discharge Diet: Cardiac and Diabetic Discharge Activity: Resume usual activity and Increase activity as tolerated Patient Instructions: Opioid Safety Activity Restrictions/Additional Instructions: Dysphagia level 7 diet. Continue with your incentive spirometry and flutter valve aggressively every couple of hours for next 2 weeks. Try to increase your physical activity. Keep oxygen saturation over 90%. Take Augmentin and Levaquin which are the antibiotics for next 3 days. Follow-up with a primary care provider within next 1 week. Discharge Attestations Time Spent in Discharge Care*: greater than 30 min Specific Discharge Activities: educating patient, discussing with pcp/other providers, discussing with case supervisor/social workers/dc planners, documenting/other paperwork and evaluating patient/reviewing data Status at Discharge: Cognitive status at discharge: cognitively intact, Behavioral status at discharge: cooperative, Functional status at discharge: uses cane/walker, Overall status at discharge: patient is progressing back to baseline Quality Metrics Clinical Quality Measures [ No reported AMI, CVA or VTE this stay] Coding Level of Care Code 54479 Total time (in minutes) for Discharge: 60 Diagnoses Hypoxic respiratory failure J96.91 Pneumonia J18.9 Pulmonary emphysema, unspecified emphysema type J43.9 COPD type: emphysema Emphysema type: unspecified Dyslipidemia E78.5 Benign hypertension I10 Arteriosclerosis I70.90 Type 2 diabetes mellitus with hyperglycemia, without long-term current use of insulin E11.65 Diabetes mellitus type: type 2 Gastroesophageal reflux disease without esophagitis K21.9 Esophagitis presence: without esophagitis Severe sepsis A41.9; R65.20
--- NOTE | 2024-09-26 14:35 | PC.NURSE ---
This nurse educated pt on discharge information, including the importance of monitoring 02 saturation, the use of incentive spirometer, as well as any follow up appointments and medications sent to [facility]. Pt did not have O2 from his house to travel with so this nurse called [facility] and they were able to deliver him a tank for transport.
== END 2024-09-26 14:40 | disposition home health service (06) | DRG 871 ==
LOC: ER 09-18 04:28 → MEDSURG 09-18 05:40
PROVIDERS: Internal Medicine; Admitting Provider Internal Medicine; Emergency Provider Emergency Medicine; PCP Nurse Practitioner; Visit Provider Student in an Organized Health Care Education/Training Program
DX: A41.9 Sepsis, unspecified organism (principal); J18.9 Pneumonia, unspecified organism; J96.22 Acute and chronic respiratory failure with hypercapnia; J96.21 Acute and chronic respiratory failure with hypoxia; J44.0 Chronic obstructive pulmonary disease with (acute) lower respiratory infection; J44.1 Chronic obstructive pulmonary disease with (acute) exacerbation; R65.20 Severe sepsis without septic shock; E78.5 Hyperlipidemia, unspecified; I10 Essential (primary) hypertension; E11.65 Type 2 diabetes mellitus with hyperglycemia; Z79.85 Long-term (current) use of injectable non-insulin antidiabetic drugs; K21.9 Gastro-esophageal reflux disease without esophagitis; M10.9 Gout, unspecified; J47.9 Bronchiectasis, uncomplicated; E53.8 Deficiency of other specified B group vitamins; E03.9 Hypothyroidism, unspecified; J43.9 Emphysema, unspecified; T17.990A Other foreign object in respiratory tract, part unspecified in causing asphyxiation, initial encounter; G47.00 Insomnia, unspecified; Z79.82 Long term (current) use of aspirin; Z99.81 Dependence on supplemental oxygen; Z87.891 Personal history of nicotine dependence; Z79.84 Long term (current) use of oral hypoglycemic drugs; Z79.02 Long term (current) use of antithrombotics/antiplatelets
CPT/HCPCS: 0241U; 36415; 36416; 36600; 71045; 71275; 74230; 80048; 80051; 80053; 80202; 82330; 82803; 82805; 82962; 83540; 83550; 83605; 83735; 84100; 84145; 84484; 85025; 85651; 86140; 86403; 87040; 87070; 87205; 87449; 87486; 87581; 87633; 92610; 92611; 93005; 93306; 94640; 94660; 94664; 94669; 94760; 94762; 96365; 96372; 97116; 97161; 99285; J1644; J1815; J1940; J1956; J2185; J2543; J2919; J3370; J3372; J3475; J7030; J7050; J7512; J7608; J7613; J7626

== ENCOUNTER → 2024-10-02 16:23 | Outpatient (BNVA) | payer MEDICARE, SELFPAY | PROVIDERS: PCP Nurse Practitioner; Visit Provider Nurse Practitioner | DX: J43.9 Emphysema, unspecified (principal); J18.9 Pneumonia, unspecified organism | CPT/HCPCS: 71046 ==

== ENCOUNTER → 2024-10-23 10:23 | Outpatient (BNVA) | payer MEDICARE, SELFPAY | PROVIDERS: PCP Nurse Practitioner; Visit Provider Nurse Practitioner | DX: E11.65 Type 2 diabetes mellitus with hyperglycemia; E03.8 Other specified hypothyroidism | CPT/HCPCS: 80053; 82607; 83036; 84443; 85025 ==

== ENCOUNTER → 2024-10-24 08:30 | Outpatient (BNVA) | payer MEDICARE, SELFPAY | PROVIDERS: PCP Nurse Practitioner; Visit Provider Nurse Practitioner | DX: J18.9 Pneumonia, unspecified organism (principal) | CPT/HCPCS: 71046 ==

== ENCOUNTER → 2024-10-29 09:03 | Outpatient (BNVA) | payer MEDICARE, SELFPAY | PROVIDERS: PCP Nurse Practitioner; Visit Provider Nurse Practitioner | DX: J18.9 Pneumonia, unspecified organism (principal) | CPT/HCPCS: 71046; 80053; 85025 ==

== ENCOUNTER → 2024-11-01 09:03 | Outpatient (BNVA) | payer MEDICARE, SELFPAY | PROVIDERS: PCP Nurse Practitioner; Visit Provider Nurse Practitioner | DX: J18.9 Pneumonia, unspecified organism (principal); J43.2 Centrilobular emphysema | CPT/HCPCS: 71046; 80048; 85025 ==

== ENCOUNTER 2024-12-11 12:49 | Outpatient (CLI) | payer MEDICARE, SELFPAY ==
--- NOTE | 2024-12-11 13:00 | CT_ITS ---
WS: [id number] CT ABDOMEN AND PELVIS WITH CONTRAST HISTORY: K83.8 - Other specified diseases of biliary tract TECHNIQUE: Imaging performed of the abdomen and pelvis with IV contrast. Single phase imaging of the abdomen. Coronal and sagittal reformats are submitted. All CT scans at [facility] use at [facility] one of these dose optimization techniques: automated exposure control; mA and/or kV adjustment per patient size (includes targeted exams where dose is matched to clinical indication); or iterative re construction. IV CONTRAST: Omnipaque 350; 100 mL IV. Oral contrast: Yes DLP: 305.39 mGy.cm COMPARISON: 08/16/2024 Lower thorax: Dense consolidation at the RIGHT lung base extending to involve the pleura. Pulmonary c onsolidation has been described on prior recent evaluations. There is bronchial thickening and retain ed mucus in the bronchi. Consolidation is distal to the bronchial mucosal retention. Additional spicu lated nodule measuring 1.9 x 1.9 cm in the LEFT lower lobe. Central cavitation with adjacent pleural tagging. Mild tree-in-bud airspace disease at the lung bases. Heart is normal size. No hiatal hernia. Liver/biliary system: Normal size with granulomata. Gallbladder: Normal size with cholelithiasis. No wall thickening or edema. Pancreas: Diffuse mild pancreatic atrophy. No pancreatic duct dilatation. Spleen: Normal size with granulomata. Adrenal glands: Mild adrenal thickening. Right kidney: Normal. Left kidney: Normal size kidney with nonobstructing calcifications. Aorta: Moderate atherosclerosis with no aneurysm. Dense calcification extends into the celiac axis an d SMA. Components of high-grade stenosis are likely. Lymphadenopathy: None. Free fluid: None. GI tract: Stomach is well distended with oral contrast. No small bowel obstruction. No appendicitis. Marked constipation with tortuous colon. There is mild narrowing of the distal sigmoid colon but ther e is no significant wall thickening or adjacent inflammation. Probably due to functional collapse. Abdominal wall: Unremarkable abdominal wall. No hernia. Pelvis: No free fluid or adenopathy within the pelvis. Nondistended urinary bladder. Prostate gland i s heterogeneous and enlarged encroaching into the base of the bladder. Mild enhancement in the centra l portion of the prostate. Bones: Advanced degenerative disc disease and narrowing at L5-S1. CT/CT abdomen pelvis w con* [id number] IMPRESSION: 1. Moderate urinary bladder dilatation with enlarged heterogeneous prostate gl and. Mild enhancement on the central prostate. Suspect outlet obstruction of th e bladder. 2. Diffuse constipation. 3. Chronic consolidations at the lung bases with bronchiectasis, greatest at t he RIGHT lung base. 4. Consolidation in the LEFT lower lobe was described on 09/17/2024. This cons olidation has decreased in size but there is a residual spiculated cavitary nod ule measuring 1.9 x 1.9 cm which needs evaluation. Differential includes incomp lete resolution of pneumonia, resolving abscess or neoplasm. 5. Cholelithiasis without acute cholecystitis. 6. Advanced atherosclerotic disease within the aorta and mesenteric arteries. 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
[2024-12-11] MEDS: iohexol 350 mg/mL 500 mL Btl (per mL) PO (13:30)
[2024-12-11] MEDS: iohexol 350 mg/mL 500 mL Btl (per mL) IV (14:29)
== END 2024-12-11 12:50 | disposition home or self-care (01) ==
PROVIDERS: PCP Nurse Practitioner; Visit Provider Nurse Practitioner
DX: K83.8 Other specified diseases of biliary tract (principal); N32.89 Other specified disorders of bladder; N40.0 Benign prostatic hyperplasia without lower urinary tract symptoms; K59.00 Constipation, unspecified; J47.9 Bronchiectasis, uncomplicated; J84.10 Pulmonary fibrosis, unspecified; R91.1 Solitary pulmonary nodule; K80.20 Calculus of gallbladder without cholecystitis without obstruction; I70.0 Atherosclerosis of aorta; R91.8 Other nonspecific abnormal finding of lung field; K75.3 Granulomatous hepatitis, not elsewhere classified; K86.89 Other specified diseases of pancreas; R93.89 Abnormal findings on diagnostic imaging of other specified body structures; M51.379 Other intervertebral disc degeneration, lumbosacral region without mention of lumbar back pain or lower extremity pain; D73.89 Other diseases of spleen
CPT/HCPCS: 74177

== ENCOUNTER 2024-12-31 08:09 | Outpatient (CLI) | payer MEDICARE, SELFPAY ==
--- NOTE | 2024-12-31 08:24 | CT_ITS ---
WS: [id number] CT chest wo con [id number] HISTORY: COPD, PNEUMONIA, PULMONARY CONSOLIDATIONS TECHNIQUE: Axial imaging performed through the thorax. Coronal and sagittal reformats are submitted. All CT scans at [facility] use at least one of these dose optimization techniques: automated exposure control; mA and/or kV adjustment per patient size (includes targeted exams where dose is mat ched to clinical indication); or iterative reconstruction. CONTRAST: None DLP: 287.41 mGy.cm COMPARISON: 09/17/2024, 12/11/2024 Lungs and central airway: New scattered groundglass opacifications LEFT upper lobe. Extensive bronchi ectasis LEFT upper lobe and RIGHT middle lobe with bronchial wall thickening. There is less mucous wi thin the dilated bronchi at the lingula. Overall there has been improved aeration with less areas of consolidation in the RIGHT middle lobe, lingula and at the lung bases. Reidentified is a spiculated n odule with central cavitation measuring 1.7 x 1.2 cm which has slightly decreased in size but does pe rsist. There is significant bronchiectasis RIGHT lower lobe with bronchial wall thickening and mucous plugging. Focal consolidations at the RIGHT lung base appears similar to 09/18/2024. Bilateral calci fied granulomata. Pleura: Small layering RIGHT pleural effusion has increased in size since 12/11/2024. Heart and pericardium: Normal size heart with no pericardial effusion. Mediastinum and nirmala: Calcified granulomata. No obvious adenopathy. Vessels: Moderate atherosclerosis aorta. Mildly ectatic and dilated aorta. No aneurysm. Chest wall and lower neck: No soft tissue masses. Upper abdomen: Small hiatal hernia. Hepatic and splenic granulomata. Stable adrenal gland thickening. Suprarenal aortic calcifications with dense splenic artery calcifications. Osseous structures: No destructive process. CT/CT chest wo con [id number] IMPRESSION: 1. Persistent but slightly improved thick-walled cavitary nodule LEFT lower lo be now measuring 1.7 x 1.2 cm. Recommend continued follow-up to resolution. Con registered representative follow-up chest CT in 3 months. 2. New scattered areas of groundglass attenuation LEFT upper lobe. 3. Improved aeration and less scattered consolidations in the lower lobes and RIGHT middle lobe since 09/17/2024. There are persistent areas of consolidation , greatest at the RIGHT lung base. 4. There is extensive multi lobar bronchiectasis. Less mucous plugging but the re is persistent circumferential wall thickening. Greatest bronchiectasis in th e LEFT upper lobe and RIGHT lower lobe.
== END 2024-12-31 08:10 | disposition home or self-care (01) ==
LOC: RAD 08:12
PROVIDERS: PCP Nurse Practitioner; Visit Provider Student in an Organized Health Care Education/Training Program
DX: J44.9 Chronic obstructive pulmonary disease, unspecified (principal); J96.11 Chronic respiratory failure with hypoxia; R91.8 Other nonspecific abnormal finding of lung field; R91.1 Solitary pulmonary nodule; J47.9 Bronchiectasis, uncomplicated; J84.10 Pulmonary fibrosis, unspecified; J90 Pleural effusion, not elsewhere classified; R93.89 Abnormal findings on diagnostic imaging of other specified body structures; I70.0 Atherosclerosis of aorta; I77.811 Abdominal aortic ectasia; K44.9 Diaphragmatic hernia without obstruction or gangrene; K75.3 Granulomatous hepatitis, not elsewhere classified; D73.89 Other diseases of spleen; I70.8 Atherosclerosis of other arteries
CPT/HCPCS: 71250

== ENCOUNTER → 2025-01-14 08:23 | Outpatient (BNVA) | payer MEDICARE, MEDICAID, SELFPAY | PROVIDERS: PCP Nurse Practitioner; Visit Provider Nurse Practitioner | DX: M10.9 Gout, unspecified (principal); E03.8 Other specified hypothyroidism; E11.65 Type 2 diabetes mellitus with hyperglycemia | CPT/HCPCS: 80053; 80061; 83036; 84443; 84550 ==

== ENCOUNTER 2025-02-19 11:10 | Emergency (ER) | payer MEDICARE, MEDICAID, SELFPAY ==
[2025-02-19 11:13] VITALS: BP 166/63; PULSE 88; RESP 34; TEMP 36.6; O2SAT 95
--- NOTE | 2025-02-19 11:27 | ECG_ITS ---
[facility]19 Pat Name: Dl Ness Department: Room: Gender: Male Clinical Social Worker: : 1940 Requested By: Mevlin Parish Order Number: [id number] Olman MD: Pritesh Zambrano M.D. Measurements Intervals [place] Rate: 94 P: 70 SD: 160 QRS: 58 QRSD: 73 T: 67 QT: 314 QTc: 394 Interpretive Statements SINUS RHYTHM Compared to ECG 09/24/2024 11:40:07 No significant changes Electronically Signed On 02-20-2025 12:35:39 CDT by Pritesh Zambrano M.D. [email or web address]
--- NOTE | 2025-02-19 11:27 | XR_ITS ---
WS: [id number] Exam: XR chest 1V portable [id number] Date/Time of Exam: 02/19/2025 11:28 AM Reason For Exam: sob Comparison 11/01/2024. There appears to be infiltrate and atelectasis in the RIGHT lower lobe behind the RIGHT heart. Trace RIGHT basal pleural effusion noted. LEFT lung is generally clear. There is hyperinflation. Cardiomediastinal silhouette is unremarkable for technique. Bony structures are intact. No pneumothorax. XR/XR chest 1V portable [id number] IMPRESSION: 1. Infiltrate and atelectasis in the RIGHT lower lobe mainly behind the RIGHT h eart. Probable trace RIGHT basal pleural effusion.
--- NOTE | 2025-02-19 11:28 | W.ED.SOB ---
HPI - SOB/Dyspnea General: Chief Complaint: Shortness of Breath/Dyspnea Stated Complaint: SOB, sent by [facility] Time Seen by Provider: 02/19/25 11:23 Source: patient Mode of arrival: ambulatory Limitations: no limitations History of Present Illness: HPI Narrative: 84-year-old male who states that he has been having increased cough and shortness of breath over the last 2 days. He does have a history of COPD states he wears 3 L oxygen at baseline has had to turn up to 4 states cough has been productive and he had increased wheezing denies any fever denies any pain. Associated symptoms: Deny abdominal pain, chest pain, fever(s), nausea or vomiting Related Data Home Medications ?Medication ?Instructions ?Recorded ?Confirmed ergocalciferol (vitamin D2) 50 mcg 50 mcg PO DAILY 01/25/22 02/19/25 (2,000 unit) capsule multivitamin 1 tab PO DAILY 01/25/22 02/19/25 vit A 300 mcg-C 200 mg-E 27 1 tab PO DAILY 01/25/22 02/19/25 mg-lutein 2 mg and minerals tablet (Vision Formula (with lutein)) cyanocobalamin (vitamin B-12) 2,500 mcg sublingual DAILY 12/29/22 02/19/25 2,500 mcg sublingual tablet (Vitamin B-12) brimonidine 0.2 % eye drops 1 drp ophthalmic (eye) BID 09/18/24 02/19/25 dorzolamide 22.3 mg-timolol 6.8 1 drp ophthalmic (eye) BID 09/18/24 02/19/25 mg/mL eye drops latanoprost 0.005 % eye drops 1 drp ophthalmic (eye) BEDTIME 09/18/24 02/19/25 moxifloxacin 0.5 % eye drops 1 drp ophthalmic (eye) TID 09/18/24 02/19/25 atorvastatin 20 mg tablet 10 mg PO DAILY 02/19/25 02/19/25 Previous Rx's ?Medication ?Instructions ?Recorded Disp Neb Kit W/mouthpc T& 7 Tubing #1 ea 01/08/21 Rebreather mask #1 ea 10/23/24 carbamide peroxide 6.5 % ear drops 5 drp otic (ear) DAILY #15 mL 12/21/24 (Debrox) Lactobacillus rhamnosus GG 20 See Rx Instructions PO .2 times 01/16/25 billion cell capsule (Probiotic day #60 caps Digestive Care) acetylcysteine 600 mg capsule 600 mg PO BID #60 caps 01/16/25 albuterol sulfate 90 mcg/actuation 2 puff inhalation Q4H PRN 01/16/25 aerosol inhaler (Ventolin HFA) shortness of breath or wheezing 30 days #6.7 grams allopurinol 300 mg tablet 300 mg PO QDAY 30 days #30 tabs 01/16/25 aspirin 81 mg tablet,delayed 81 mg PO QDAY 30 days #30 tabs 01/16/25 release (Adult Low Dose Aspirin) clopidogrel 75 mg tablet (Plavix) 75 mg PO QDAY 30 days #30 tabs 01/16/25 empagliflozin 25 mg tablet 25 mg PO QAM #30 tabs 01/16/25 (Jardiance) evolocumab 140 mg/mL subcutaneous 140 mg SUBCUT .every 14 day #2 mL 01/16/25 pen injector (Alta Pettit) fluticasone fur. 100 mcg-umeclid 1 inh inhalation QDAY 30 days #28 01/16/25 62.5 mcg-vilant 25 mcg ea inhalat.powder (Trelegy Ellipta) glipizide 2.5 mg tablet, extended 2.5 mg PO QDAY 30 days #30 tabs 01/16/25 release 24 hr ipratropium 0.5 mg-albuterol 3 mg 3 ml inhalation QID.RESPIRATORY 01/16/25 (2.5 mg base)/3 mL nebulization PRN Shortness Of Breath #300 mL soln levothyroxine 75 mcg tablet 75 mcg PO QDAY 30 days #30 tabs 01/16/25 (Synthroid) losartan 50 mg tablet 50 mg PO QDAY 30 days #30 tabs 01/16/25 metoprolol tartrate 25 mg tablet 25 mg PO BID@0900,2100 30 days #60 01/16/25 tabs pantoprazole 40 mg tablet,delayed 40 mg PO DAILY #30 tabs 01/16/25 release tamsulosin 0.4 mg capsule (Flomax) 0.4 mg PO .2 times day #60 caps 01/16/25 mirtazapine 30 mg tablet (Remeron) 30 mg PO .at supper time #30 tabs 02/06/25 guaifenesin 600 mg tablet, 600 mg PO BID 30 days #60 tabs 02/13/25 extended release 12 hr (Mucinex) azithromycin 500 mg tablet 500 mg PO .COMPLEX #12 tabs 02/18/25 (Zithromax) doxycycline hyclate 100 mg tablet 100 mg PO BID 7 days #14 tabs 02/19/25 prednisone 50 mg tablet 50 mg PO DAILY #5 tabs 02/19/25 Allergies Allergy/AdvReac Type Severity Reaction Status Date / Time No Known Allergies Allergy Verified 02/19/25 09:34 Review of Systems Const: Denies: fever(s), chills, body aches or change in appetite ENMT: Denies: throat pain or dental pain Card: Denies: chest pain Resp: Reports: dyspnea, productive cough and wheezing GI: Denies: abdominal pain, nausea, vomiting or diarrhea Musc: Denies: neck pain or back pain Skin/Breast: Denies: rash Neuro: Denies: headache(s) PFSH ED PFSH: Medical History Diabetes mellitus with hyperglycemia, without long-term current use of insulin Phimosis Low serum iron B12 deficiency Cardiovascular disease Gout, unspecified Dyslipidemia Benign hypertension Adult onset hypothyroidism GERD (gastroesophageal reflux disease) COPD (chronic obstructive pulmonary disease) Surgical History History of cataract surgery Sep.02 History of vascular surgery 05/2019 Family History Son Diabetes Father , AT 85 No problems noted. Mother , AT AGE 70 Brain tumor Social History Smoking and tobacco/nicotine status: former use of tobacco/nicotine Second hand smoke exposure: No Alcohol intake: former Substance/Drug Use: never Adopted: No Caregiver/support person: No Lives independently: Yes Household members: spouse Housing: House Marital status: service: No Current occupational status: retired Current occupational exposures/hazards: No Do you think of yourself as: Straight/Heterosexual Current gender identity: Male Physical Exam Const: COMMON NORMALS: no acute distress, patient oriented x3 and healthy appearing HENMT: COMMON NORMALS: normocephalic and atraumatic HEAD & SCALP: normocephalic and atraumatic Neck/C-Spine: COMMON NORMALS: full ROM and supple Chest: COMMONS NORMALS: normal inspection of the chest Resp: COMMON NORMALS: No retractions AUSCULTATION: wheezes Cardio: COMMON NORMALS: regular rate, regular rhythm and No murmurs present (Cardio) RATE: regular rate RHYTHM: regular rhythm GI: COMMON NORMALS: Normal to inspection, nondistended, normoactive bowel sounds present, Soft to palpation, non-tender and no masses PALPATION: Yes Soft to palpation Extremity: COMMON NORMALS: normal to inspection and full ROM Neuro: COMMON NORMALS: patient oriented x3, moves all extremities and no focal motor deficits Psych: COMMON NORMALS: mental status grossly normal, Normal thought process present and cooperative THOUGHT PROCESS: Normal thought process present Skin: COMMON NORMALS: no rashes or lesions noted and no wounds GENERAL SKIN EXAM: no rashes or lesions noted Course Vital Signs: Vital signs: Vital Signs Temperature 97.9 F 02/19/25 11:13 Pulse Rate 90 02/19/25 12:19 Respiratory Rate 23 H 02/19/25 12:19 Blood Pressure 129/66 02/19/25 12:19 Pulse Oximetry 90 02/19/25 12:19 Oxygen Delivery Me thod Nasal Cannula 02/19/25 11:35 Oxygen Flow Rate 3.5 02/19/25 11:35 MDM - SOB/Dyspnea Medical Decision Making Patient presents here with shortness of breath cough likely COPD exacerbation x-ray shows possible slight pneumonia he denies 6% here now on his baseline feels much improved after treatments we will place him on antibiotics, 5 days of steroids he is to follow-up with PCP and return if worsening he understands agrees to plan. Medical Records I reviewed the patient's medical records. Lab Data I reviewed the patient's lab results. 02/19/25 11:25 02/19/25 11:25 Labs/Radiology: Radiology Impressions Chest X-Ray 02/19/25 11:27 IMPRESSION: 1. Infiltrate and atelectasis in the RIGHT lower lobe mainly behind the RIGHT heart. Probable trace RIGHT basal pleural effusion. Laboratory Results WBC 7.44 10^3/uL (3.29-11.43) 02/19/25 11:25 RBC 4.48 10^6/uL (3.85-5.65) 02/19/25 11:25 Hgb 11.70 g/dL (11.27-16.99) 02/19/25 11:25 Hct 38.5 % (37-53) 02/19/25 11:25 MCV 85.9 fl (82-101) 02/19/25 11:25 MCH 26.1 pg (27-33) L 02/19/25 11:25 MCHC 30.4 g/dL (30-55) 02/19/25 11:25 RDW 13.9 % (12.1-15.1) 02/19/25 11:25 Plt Count 227 10^3/cmm (157-399) 02/19/25 11:25 MPV 10.5 fL (7.4-10.4) H 02/19/25 11:25 Neut % (Auto) 71.0 % 02/19/25 11:25 Lymph % (Auto) 16.9 % 02/19/25 11:25 [place] % (Auto) 9.4 % 02/19/25 11:25 Eos % (Auto) 1.9 % 02/19/25 11:25 Baso % (Auto) 0.4 % 02/19/25 11:25 Neut # (Auto) 5.28 10^3/uL (1.8-7.7) 02/19/25 11:25 Lymph # (Auto) 1.3 10^3/uL (0.8-4.8) 02/19/25 11:25 [place] # (Auto) 0.7 10^3/uL (0.2-0.9) 02/19/25 11:25 Eos # (Auto) 0.1 10^3/uL (0.0-0.8) 02/19/25 11:25 Baso # (Auto) 0.0 10^3/uL (0.0-0.1) 02/19/25 11:25 Nucleated RBC % (auto) 0 % 02/19/25 11: Nucleated RBCs # 0.0 /100WBC 02/19/25 11:25 Specimen Type Arterial 02/19/25 11:31 Sample Site Radial, left 02/19/25 11:31 ABG pH 7.33 (7.35-7.45) L 02/19/25 11:31 ABG pCO2 55.5 mmHg (35-45) H 02/19/25 11:31 ABG pO2 102.0 mmHg (80.0-100.0) H 02/19/25 11:31 ABG HCO3 29.5 mmol/L (22-26) H 02/19/25 11:31 ABG Base Excess 2.7 mmol/L (-2.0-2.0) H 02/19/25 11:31 Chirag Test Pos 02/19/25 11:31 Hematocrit 34.4 % (42-52) L 02/19/25 11:31 Hgb O2 Saturation 96.3 % (95-100) 02/19/25 11:31 Carboxyhemoglobin 0.9 %THgb (0.4-20.1) 02/19/25 11:31 Methemoglobin 0.9 % (0.4-1.5) 02/19/25 11:31 Total Hemoglobin 11.2 g/dL (14-18) L 02/19/25 11:31 O2 Delivery Device Nc 02/19/25 11:31 O2 Liters/Min 3.5 % 02/19/25 11:31 Commercial Crabber ID [place] 02/19/25 11:31 Sodium 137 mmol/L (136-145) 02/19/25 11:25 Potassium 4.3 mmol/L (3.5-5.1) 02/19/25 11:25 Chloride 98 mmol/L (98-107) 02/19/25 11:25 Carbon Dioxide 30 mmol/L (22-29) H 02/19/25 11:25 Anion Gap 13.3 (5-19) 02/19/25 11:25 BUN 16 mg/dL (8-23) 02/19/25 11:25 Creatinine 1.1 mg/dL (0.7-1.2) 02/19/25 11:25 GFR Calculation Not Reportable 02/19/25 11:25 Glucose 232 mg/dL (65-115) H 02/19/25 11:25 Calculated Osmolality 293 mOsm/kg (285-295) 02/19/25 11:25 Calcium 9.1 mg/dL (8.5-10.5) 02/19/25 11:25 Total Bilirubin 0.3 mg/dL (0.15-1.2) 02/19/25 11:25 AST 14 U/L (0-40) 02/19/25 11:25 ALT 9 U/L (0-41) 02/19/25 11:25 Alkaline Phosphatase 82 U/L (40-130) 02/19/25 11:25 NT-Pro-B Natriuret Pep 734 pg/mL (0-450) H 02/19/25 11:25 Total Protein 7.6 g/dL (6.6-8.7) 02/19/25 11:25 Albumin 3.8 g/dL (3.5-5.2) 02/19/25 11:25 Globulin 3.8 g/dL (1.3-4.6) 02/19/25 11:25 Influenza A (PCR) Negative (Negative) 02/19/25 11:30 Influenza Type B (PCR) Negative (Negative) 02/19/25 11:30 RSV (PCR) Negative (Negative) 02/19/25 11:30 SARS-CoV-2 (PCR) Negative (Negative) 02/19/25 11:30 All radiology interpretation(s) finalized by discharge EKG Data EKG 1: I personally reviewed and interpreted this EKG as follows: EKG Interpretation Date: 02/19/25 EKG interpretation time: 11:16 Interpretation: nsr hr [address] elevation qrs 73 qtc 366 Discharge Plan Discharge Patient Disposition: Home Clinical Impression: Acute exacerbation of chronic obstructive airways disease, Community acquired pneumonia Condition: Stable Prescriptions: New prednisone 50 mg tablet 50 mg PO DAILY Qty: 5 0RF doxycycline hyclate 100 mg tablet 100 mg PO BID 7 Days Qty: 14 0RF No Action ergocalciferol (vitamin D2) 50 mcg (2,000 unit) capsule 50 mcg PO DAILY multivitamin Tablet 1 tab PO DAILY Vision Formula (with lutein) 1,000 unit-200 mg-60 unit-2 mg tablet 1 tab PO DAILY Rx Instructions: administer after a meal (DME) Rebreather mask See Rx Instructions .Route .MEDSUPPLY Qty: 1 0RF Rx Instructions: As directed use with oxygen 5 lite Debrox 6.5 % drops 5 drp otic (ear) DAILY Qty: 15 0RF acetylcysteine 600 mg capsule 600 mg PO BID Qty: 60 2RF albuterol sulfate [Ventolin HFA] 90 mcg/actuation HFA aerosol inhaler 2 puff INHALATION Q4H PRN (Reason: shortness of breath or wheezing) 30 Days Qty: 6.7 2RF allopurinol 300 mg tablet 300 mg PO QDAY 30 Days Qty: 30 2RF aspirin [Adult Low Dose Aspirin] 81 mg tablet,delayed release (DR/EC) 81 mg PO QDAY 30 Days Qty: 30 2RF clopidogrel [Plavix] 75 mg tablet 75 mg PO QDAY 30 Days Qty: 30 2RF Jardiance 25 mg tablet 25 mg PO QAM Qty: 30 2RF Repatha SureClick 140 mg/mL pen injector 140 mg SUBCUT .every 14 day Qty: 2 2RF Trelegy Ellipta 100-62.5-25 mcg blister with device 1 inh INHALATION QDAY 30 Days Qty: 28 2RF glipizide 2.5 mg tablet extended release 24hr 2.5 mg PO QDAY 30 Days Qty: 30 2RF ipratropium-albuterol 0.5 mg-3 mg(2.5 mg base)/3 mL solution for nebulization 3 ml inhalation QID.RESPIRATORY PRN (Reason: Shortness Of Breath) Qty: 300 2RF Probiotic Digestive Care 20 billion cell capsule See Rx Instructions PO .2 times day Qty: 60 2RF Rx Instructions: 20 billion cell PO .2 times day; levothyroxine [Synthroid] 75 mcg tablet 75 mcg PO QDAY 30 Days Qty: 30 2RF losartan 50 mg tablet 50 mg PO QDAY 30 Days Qty: 30 2RF Rx Instructions: lower dose 1 full tablet metoprolol tartrate 25 mg tablet 25 mg PO BID@0900,2100 30 Days Qty: 60 2RF pantoprazole 40 mg tablet,delayed release (DR/EC) 40 mg PO DAILY Qty: 30 2RF tamsulosin [Flomax] 0.4 mg capsule 0.4 mg PO .2 times day Qty: 60 2RF (DME) Disp Neb Kit W/mouthpc T& 7 Tubing See Rx Instructions .Route .MEDSUPPLY Qty: 1 2RF Dose Instruction: USE DIRECTED Rx Instructions: USE DIRECTED mirtazapine [Remeron] 30 mg tablet 30 mg PO .at supper time Qty: 30 2RF Rx Instructions: for sleep and eat guaifenesin [Mucinex] 600 mg tablet extended release 12hr 600 mg PO BID 30 Days Qty: 60 2RF azithromycin [Zithromax] 500 mg tablet 500 mg PO .COMPLEX Qty: 12 0RF Rx Instructions: 500 mg orally Mon, Wed & Tuesday; cyanocobalamin (vitamin B-12) [Vitamin B-12] 2,500 mcg Tablet, Sublingual 2,500 mcg SUBLINGUAL DAILY latanoprost 0.005 % drops 1 drp ophthalmic (eye) BEDTIME brimonidine 0.2 % drops 1 drp ophthalmic (eye) BID dorzolamide-timolol 22.3-6.8 mg/mL drops 1 drp ophthalmic (eye) BID moxifloxacin 0.5 % drops 1 drp ophthalmic (eye) TID atorvastatin 20 mg tablet 10 mg PO DAILY Discharge Orders: Discharge ED (Routine); Ordered 02/19/25 Ordered By: Melvin Parish Referrals: Pete Barboza, SEEING EYE DOG TEACHER-C [Primary Care Provider] - Discharge Diet: Advance as tolerated Discharge Activity: Resume usual activity Patient Instructions: COPD (Chronic Obstructive Pulmonary Disease) (ED), Community Acquired Pneumonia (ED) Print Language: Occitan Coding Level of Care Code ED Chief Console Operator for Sheldon Rodriguez
[2025-02-19 11:34] LABS: Basophils % 0.4 %; Eosinophils # 0.1 10^3/uL (0.0-0.8); Eosinophils % 1.9 %; Hematocrit 38.5 % (37-53); Lymphocytes # 1.3 10^3/uL (0.8-4.8); Lymphocytes % 16.9 %; Mean Corpuscular HGB Conc 30.4 g/dL (30-55); Mean Corpuscular Hemoglobin 26.1 pg (27-33); Mean Corpuscular Volume 85.9 fl (82-101); Mean Platelet Volume 10.5 fL (7.4-10.4); Monocytes # 0.7 10^3/uL (0.2-0.9); Monocytes % 9.4 %; Neutrophils # 5.28 10^3/uL (1.8-7.7); Nucleated Red Blood Cells % 0 %; Platelet Count 227 10^3/cmm (157-399); Red Blood Count 4.48 10^6/uL (3.85-5.65); Red Cell Distribution Width 13.9 % (12.1-15.1); White Blood Count 7.44 10^3/uL (3.29-11.43)
[2025-02-19 11:35] VITALS: PULSE 91; RESP 16; O2SAT 98
[2025-02-19] MEDS: methylPREDNISolone sod succ 125 mg/2 mL INJ IV (11:38)
[2025-02-19 11:42] LABS: ABG PCO2 55.5 mmHg (35-45); ABG PH Result 7.33 (7.35-7.45); Arterial Blood Gas Hematocrit 34.4 % (42-52); Base Excess ABG 2.7 mmol/L (-2.0-2.0); Blood Gas Allen Test Pos; Blood Gas LPM 3.5 %; Blood Gas Operator Identificat WALCI; Blood Gas Sample Site Radial, left; Blood Gas Sample Type Arterial; Carboxyhemoglobin 0.9 %THgb (0.4-20.1); HCO3 ABG 29.5 mmol/L (22-26); HGB O2 Sat 96.3 % (95-100); Methemoglobin 0.9 % (0.4-1.5); Oxygen Device NC; Total Hemoglobin 11.2 g/dL (14-18)
[2025-02-19] MEDS: albuterol 2.5 mg/3 mL Neb 5 MG INHALATION (11:46)
[2025-02-19] MEDS: ipratropium-albuterol 3 mL Neb INHALATION (11:46)
[2025-02-19 12:00] LABS: Alanine Aminotransferase 9 U/L (0-41); Albumin Level 3.8 g/dL (3.5-5.2); Alkaline Phosphatase 82 U/L (40-130); Anion Gap 13.3 (5-19); Aspartate Amino Transferase 14 U/L (0-40); Blood Urea Nitrogen 16 mg/dL (8-23); Calcium 9.1 mg/dL (8.5-10.5); Carbon Dioxide 30 mmol/L (22-29); Chloride 98 mmol/L (98-107); Creatinine Clr Calc Pharmacy 49.4938; Globulin 3.8 g/dL (1.3-4.6); Glucose 232 mg/dL (65-115); NT Pro B Type Natriuretic Pept 734 pg/mL (0-450); Osmolality Calculated 293 mOsm/kg (285-295); Potassium 4.3 mmol/L (3.5-5.1); Sodium 137 mmol/L (136-145); Total Bilirubin 0.3 mg/dL (0.15-1.2); Total Protein 7.6 g/dL (6.6-8.7)
[2025-02-19 12:19] VITALS: BP 129/66; PULSE 90; RESP 23; O2SAT 90
[2025-02-19 12:25] LABS: Influenza A NEGATIVE (Negative); Influenza B NEGATIVE (Negative); Respiratory Syncytial Virus Ce NEGATIVE (Negative); SARS-CoV-2 PCR NEGATIVE (Negative)
[2025-02-19] MEDS: FUROsemide 10 mg/mL SDV 4mL 40 MG IVP (12:32)
[2025-02-19 12:54] VITALS: BP 129/66; PULSE 66; O2SAT 95
[2025-02-19] MEDS: doxycycline 100 mg Tablet PO (12:56)
== END 2025-02-19 12:56 | disposition home or self-care (01) ==
PROVIDERS: Emergency Provider Emergency Medicine; PCP Nurse Practitioner
DX: J44.1 Chronic obstructive pulmonary disease with (acute) exacerbation (principal); J18.9 Pneumonia, unspecified organism; Z11.52 Encounter for screening for COVID-19; Z79.82 Long term (current) use of aspirin; Z87.891 Personal history of nicotine dependence; E78.5 Hyperlipidemia, unspecified; I10 Essential (primary) hypertension; E11.9 Type 2 diabetes mellitus without complications
CPT/HCPCS: 36415; 36600; 71045; 80053; 82805; 83880; 85025; 87637; 93005; 94640; 96374; 96375; 99285; J1940; J2919; J7613; J9999

== ENCOUNTER → 2025-03-21 08:22 | Outpatient (BNVA) | payer MEDICARE, MEDICAID, SELFPAY | PROVIDERS: PCP Nurse Practitioner; Visit Provider Nurse Practitioner | DX: J43.9 Emphysema, unspecified (principal); R91.8 Other nonspecific abnormal finding of lung field | CPT/HCPCS: 71046 ==

== ENCOUNTER → 2025-04-04 08:27 | Outpatient (BNVA) | payer MEDICARE, MEDICAID, SELFPAY | PROVIDERS: PCP Nurse Practitioner; Visit Provider Nurse Practitioner | DX: E11.65 Type 2 diabetes mellitus with hyperglycemia (principal); R39.11 Hesitancy of micturition | CPT/HCPCS: 80053; 80061; 81000; 83036 ==

== ENCOUNTER → 2025-05-02 08:00 | Outpatient (BNVA) | payer MEDICARE, MEDICAID, SELFPAY | PROVIDERS: PCP Nurse Practitioner; Visit Provider Nurse Practitioner | DX: J44.9 Chronic obstructive pulmonary disease, unspecified (principal) | CPT/HCPCS: 71046 ==

== ENCOUNTER → 2025-07-02 10:05 | Outpatient (BNVA) | payer MEDICARE, MEDICAID, SELFPAY | PROVIDERS: PCP Nurse Practitioner; Visit Provider Nurse Practitioner | DX: E11.65 Type 2 diabetes mellitus with hyperglycemia (principal); Z79.4 Long term (current) use of insulin; E03.8 Other specified hypothyroidism | CPT/HCPCS: 80053; 80061; 81000; 83036; 84443 ==

== ENCOUNTER → 2025-10-01 08:21 | Outpatient (BNVA) | payer MEDICARE, MEDICAID, SELFPAY | PROVIDERS: PCP Nurse Practitioner; Visit Provider Nurse Practitioner | DX: E11.65 Type 2 diabetes mellitus with hyperglycemia (principal); Z79.4 Long term (current) use of insulin; J43.9 Emphysema, unspecified; E78.5 Hyperlipidemia, unspecified; I10 Essential (primary) hypertension | CPT/HCPCS: 80053; 80061; 83036; 85025 ==

== ENCOUNTER → 2025-10-03 08:36 | Outpatient (BNVA) | payer MEDICARE, MEDICAID, SELFPAY | PROVIDERS: PCP Nurse Practitioner; Visit Provider Nurse Practitioner | DX: E11.65 Type 2 diabetes mellitus with hyperglycemia (principal); Z79.4 Long term (current) use of insulin | CPT/HCPCS: 81000 ==

== ENCOUNTER 2025-11-19 12:00 | Emergency (ER) | payer MEDICARE, SELFPAY ==
[2025-11-19] VITALS (7 sets, daily range): BP systolic 115–154; BP diastolic 48–74; PULSE 79–91; RESP 18–20; TEMP 36.7; O2SAT 91–94; BMI 22.1
--- OUTSIDE RECORDS SUMMARY | 2025-11-19 12:04 | XMS_ITS | Patient Health Record ---
Author Organization [facility] Address [address] [place] [address] Care Team Providers Care Corn Cooker Name Role Phone Pete Barboza APRN Primary Care Provider Unav nhi DiamondIbrahimamartitricia Unavailable Allergies No Known Allergies Reason For Referral No Information Medications Medication SIG (Take, Route, Frequency, Duration) Notes Start Date End Date Status Levothyroxine Sodium 75 MCG Tablet 1 tablet in the morning on an empty stomach Orally Once a day Active Clopidogrel Bisulfate 75 MG Tablet 1 tablet Orally Once a day Active Vitamin D3 50 MCG (1999) Capsule 1 capsule Orally Once a day Active Ventolin HFA 90 MCG/ACT Aerosol Solution 1 puff as needed Inhalation every 4 hrs Active Losartan Potassium 100 MG Tablet 1 tablet Orally Once a day Active Aspirin EC 81 MG Tablet Delayed Release 1 tablet Orally Once a day Active Roflumilast 250 MCG Tablet 2 tablets Ora lly Once a day Active Allopurinol 300 MG Tablet 1 tablet Orall y Once a day Active Mucinex 600 MG Tablet Extended Release 1 tablet as needed Orally every 12 hrs Active Jardiance 10 MG Tablet 1 tablet Orally O nce a day Active Vision Formula Eye Health - Capsule as directed Orally Active Trelegy Ellipta 100-62.5-25 MCG/INH Aerosol Powder Breath Activated 1 puff Inhalation Once a day Active glipiZIDE ER 2.5 MG Tablet Extended Release 24 Hour 1 tablet with breakfast Orally Once a day Active Ferrous Gluconate 324 MG Tablet 1 tablet with water or juice between meals Orally Once a day Active Atorvastatin Calcium 20 MG Tablet 1 tablet Orally Once a day Active metFORMIN HCl 500 MG Tablet 1 tablet wit h a meal Orally Once a day Active Pantoprazole Sodium 40 mg Tablet Delayed Release TAKE ONE TABLET BY MOUTH TWICE DAILY; Duration: 60 Active Social History Tobacco Use: Social History Observation Description Date Details (start date - stop date) Former Smoker NA - NA Social History Drugs/Alcohol: Social Info Question Answer Notes Alcohol Screen (Audit-C) Did you have a drink containing alcohol in the past year? No Points 0 Interpretation Negative Drugs Have you used drugs other than those for medical reasons in the past 12 months? No Tobacco Use: Social Info Question Answer Notes xTobacco Use/Smoking Are you a former smoker How long has it been since you last smoked? 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
--- NOTE | 2025-11-19 12:11 | XRR_ITS ---
PROCEDURE INFORMATION: Exam: XR Chest Exam date and time: 11/19/2025 12:21 PM Age: 85 years old Clinical indication: Cough and dyspnea and shortness of breath; SOB copd; Additional info: Dyspnea/cough TECHNIQUE: Imaging protocol: Radiologic exam of the chest. Views: 1 view. COMPARISON: CR XR chest 2V* [id number] 05/02/2025 7:58 AM FINDINGS: Lungs: Moderate interstitial fibrosis, greatest in the lower lobes, right greater than left. These findings are unchanged. Minimal infiltrate in the left upper lobe was not present previously. Pleural spaces: Unremarkable. No pleural effusion. No pneumothorax. Heart/Mediastinum: Unremarkable. No cardiomegaly. Bones/joints: Unremarkable. Other findings: Scattered calcified granulomata. XR/XR chest 1V portable [id number] IMPRESSION: Stable bibasilar opacities appear chronic. Minimal left upper lobe infiltrate.
--- NOTE | 2025-11-19 12:11 | ECG_ITS ---
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
--- NOTE | 2025-11-19 13:01 | ED_ITS ---
HPI - SOB/Dyspnea 2 General: Chief Complaint: Shortness of Breath/Dyspnea Stated Complaint: sob, on O2 between 2-4lpm Time Seen by Provider: 11/19/25 12:55 History of Present Illness: HPI Narrative: 85-year-old male presents emergency room complaining of shortness of breath. Patient has been having increasing cough some loose stools and sore throat. Patient has chronic respiratory illness he has a wood-burning stove at home he is concerned that that may have exacerbated things he has had a low-grade fever as well. He is not not had any increase in production of cough. He is maintaining his oxygen sats at 4 L which is his normal baseline oxygen use. He denies chest pain no hemoptysis Associated symptoms: Reports chest congestion; Deny abdominal pain, chest pain or fever(s) Related Data Home Medications ?Medication ?Instructions ?Recorded ?Confirmed ergocalciferol (vitamin D2) 50 mcg 50 mcg PO DAILY 10/03/25 (2,000 unit) capsule multivitamin 1 tab PO DAILY 01/25/2205/22 vit A 300 mcg-C 200 mg-E 27 1 tab PO DAILY 01/25/22 mg-lutein 2 mg and minerals tablet (Vision Formula (with lutein)) cyanocobalamin (vitamin B-12) 2,500 mcg sublingual KENA LY 12/29/22 10/03/25 2,500 mcg sublingual tablet (Vitamin B-12) brimonidine 0.2 % eye drops 1 drp ophthalmic (eye) BID 09/18/24 10/03/25 dorzolamide 22.3 mg-timolol 6.8 1 drp ophthalmic (eye) BID 09/18/24 10/03/25 mg/mL eye drops latanoprost 0.005 % eye drops 1 drp ophthalmic (eye) B EDTIME 09/18/24 10/03/25 moxifloxacin 0.5 % eye drops 1 drp ophthalmic (eye) TI D 09/18/24 10/03/25 Previous Rx's ?Medication ?Instructions ?Recorded Rebreather mask #1 ea 10/23/24 carbamide peroxide 6.5 % ear drops 5 drp otic (ear) DA RENZO #15 mL 12/21/24 (Debrox) poc and titration test #1 ea 04/24/25 pen needle, diabetic 33 gauge x #100 ea 05/10/25/32 sucralfate 1 gram tablet (Carafate) 1 g PO BID PRN hea rtburn #60 tabs 07/02/25 Disp Neb Kit W/mouthpc T& 7 Tubing #1 ea 07/15/25 Lactobacillus rhamnosus GG 20 See Rx Instructions PO . 2 times 10/03/25 billion cell capsule (Probiotic day #60 caps Digestive Care) albuterol sulfate 90 mcg/actuation 2 puff inhalation Q 4H PRN 10/03/25 aerosol inhaler (Ventolin HFA) shortness of breath or wheezing 30 days #6.7 grams allopurinol 300 mg tablet 300 mg PO QDAY 30 days #30 t abs 10/03/25 aspirin 81 mg tablet,delayed 81 mg PO QDAY 30 days #30 tabs 10/03/25 release (Adult Low Dose Aspirin) atorvastatin 10 mg tablet 10 mg PO DAILY #30 tabs 05/22 azithromycin 500 mg tablet 500 mg PO .COMPLEX #12 tabs 10/03/25 (Zithromax) clopidogrel 75 mg tablet (Plavix) 75 mg PO QDAY 30 day s #30 tabs 10/03/25 empagliflozin 25 mg tablet 25 mg PO QAM #30 tabs 10/03 (Jardiance) evolocumab 140 mg/mL subcutaneous 140 mg SUBCUT .every 14 day #2 mL 10/03/25 pen injector (Alta Pettit) fluticasone fur. 100 mcg-umeclid 1 inh inhalation QDAY 30 days #28 10/03/25 62.5 mcg-vilant 25 mcg ea inhalat.powder (Trelegy Ellipta) guaifenesin 600 mg tablet, 600 mg PO BID 30 days #60 t abs 10/03/25 extended release 12 hr (Mucinex) insulin glargine 100 unit/mL (3 30 unit (0.3 mL) SUBCU T QAM #15 mL 10/03/25 mL) subcutaneous pen (Basaglar KwikPen U-100 Insulin) ipratropium 0.5 mg-albuterol 3 mg 3 ml inhalation QID. RESPIRATORY 10/03/25 (2.5 mg base)/3 mL nebulization PRN Shortness Of Breat h #300 mL soln levothyroxine 75 mcg tablet 75 mcg PO QDAY 30 days #30 tabs 10/03/25 (Synthroid) losartan 50 mg tablet 50 mg PO QDAY 30 days #30 ta bs 10/03/25 metoprolol tartrate 25 mg tablet 25 mg PO BID@0900,210 0 30 days #60 10/03/25 tabs mirtazapine 30 mg tablet (Remeron) 30 mg PO .at supper time #30 tabs 10/03/25 pantoprazole 40 mg tablet,delayed 40 mg PO DAILY #30 t abs 10/03/25 release prednisone 10 mg tablet 10 mg PO DAILY #30 tabs 11/0 05/22 tamsulosin 0.4 mg capsule (Flomax) 0.4 mg PO .2 times day #60 caps 10/03/25 albuterol sulfate 90 mcg/actuation 2 inh inhalation Q4 H PRN shortness 11/19/25 aerosol inhaler of breath or wheezing #18 gr ams Allergies Allergy/AdvReac Type Severity Reaction Status Date / Time naproxen (From Aleve) Allergy ADR-Agitate Verified 11/19/25 12:10 d Review of Systems 2 Const: Denies: fever(s) or chills Card: Denies: chest pain Resp: Reports: dyspnea, non-productive cough, wheezing and chest congestion GI: Denies: abdominal pain : Denies: dysuria, urinary frequency or urinary urgency Musc: Denies: neck pain or back pain Skin/Breast: Denies: rash PFSH ED 2 PFSH: Medical History Type 2 diabetes mellitus with hyperglycemia, with long-term current use of insulin Phimosis Low serum iron B12 deficiency Cardiovascular disease Gout, unspecified Dyslipidemia Benign hypertension Adult onset hypothyroidism GERD (gastroesophageal reflux disease) COPD (chronic obstructive pulmonary disease) Surgical History History of cataract surgery Sep.02 History of vascular surgery 05/2019 Family History Son Diabetes Father , AT 85 No problems noted. Mother , AT AGE 70 Brain tumor Social History (Reviewed 11/26/25 @ 09:54 by PITA Armenta Smoking and tobacco/nicotine status: former use of tobacco/nicotine Second hand smoke exposure: No Alcohol intake: former Substance/Drug Use: never Adopted: No Caregiver/support person: No Lives independently: Yes Household members: spouse Housing: House Marital status: service: No Current occupational status: retired Current occupational exposures/hazards: No Do you think of yourself as: Straight/Heterosexual Current gender identity: Male Physical Exam 2 Const: GENERAL APPEARANCE: cooperative and comfortable O RIENTATION/CONSCIOUSNESS: Yes awake, Yes oriented to person, Yes oriented to place and Yes oriented to time HENMT: COMMON NORMALS: normocephalic, atraumatic and hearing grossly normal bilaterally HEAD & SCALP: normocephalic and atraumatic Resp: COMMON NORMALS: normal respiratory effort, No retractions and No use of accessory muscles AUSCULTATION: rhonchi and wheezes Cardio: COMMON NORMALS: regular rate, regular rhythm and No murmurs present (Cardio) RATE: regular rate RHYTHM: regular rhythm GI: COMMON NORMALS: Soft to palpation and No hepatosplenomegaly present A USCULTATION: Yes normoactive bowel sounds PALPATION: Yes Soft to palpation, No Tenderness to palpation present (GI), No Guarding due to palpation present (GI) and Yes No hepatosplenomegaly present Extremity: COMMON NORMALS: normal to inspection, capillary refill normal, no clubbing, cyanosis or edema, no calf tenderness and no pedal edema Neuro: SENSORIUM/ORIENTATION: Yes oriented to person, Yes oriented to place and Yes oriented to time Skin: COMMON NORMALS: no rashes or lesions noted GENERAL SKIN EXAM: no rashes or lesions noted Course 2 Vital Signs: Vital signs: Vital Signs Temperature 98.0 F 11/19/25 12:06 Pulse Rate 82 11/19/25 16:22 Respiratory Rate 18 11/19/25 13:51 Blood Pressure 125/57 11/19/25 16:22 Pulse Oximetry 93 11/19/25 16:22 Oxygen Delivery Me thod Nasal Cannula 11/19/25 15:40 Oxygen Flow Rate 3 11/19/25 15:40 MDM - SOB/Dyspnea Medical Decision Making 85-year-old male with chronic respiratory illness on baseline oxygen maintaining his saturations. He is COVID-positive. Reviewed previous echocardiogram showed some diastolic dysfunction but preserved ejection fraction. Other labs reviewed as found in the chart including normal white count patient is chronically anemic hemoglobin at 10 7. Chemistry showed mild chronic hyponatremia at 131. BUN and creatinine are normal. Liver functions are also normal. Patient did test positive for COVID. Reviewed findings with the patient discharge home supportive cares continue oxygen return if he has worsening problems. Discharged home with albuterol to use as needed Medical Records I reviewed the patient's medical records. CONCLUSIONS .Normal left ventricular size and systolic function, EF 65%.abnormal septal motion consistent with conduction abnormality. Grade I/IV diastolic dysfunction (abnormal relaxation filling pattern), normal to mildly elevated filling pressures. Mild left ventricular hypertrophy. Mild to moderate mitral annular calcification. Trace of mitral and tricuspid valve regurgitation. There is no pericardial effusion. There are no intracardiac masses. Technically limited study because of the poor ultrasonic windows. Only parasternal and subcostal views. No apical views. Dr Pritesh Zambrano MD [facility] (Electronically Signed) Final Date: 20 September 2024 Lab Data I reviewed the patient's lab results. 11/19/25 13:15 11/19/25 13:15 Labs/Radiology: Radiology Impressions Chest X-Ray 11/19/25 12:11 IMPRESSION: Stable bibasilar opacities appear chronic. Minimal left upper lobe infiltrate. Laboratory Results WBC 7.52 10^3/uL (3.29-11.43) 11/19/25 13:15 RBC 4.25 10^6/uL (3.85-5.65) 11/19/25 13:15 Hgb 10.70 g/dL (11.27-16.99) L 11/19/25 13:15 Hct 36.7 % (37-53) L 11/19/25 13:15 MCV 86.4 fl (82-101) 11/19/25 13:15 MCH 25.2 pg (27-33) L 11/19/25 13:15 MCHC 29.2 g/dL (30-55) L 11/19/25 13:15 RDW 16.5 % (12.1-15.1) H 11/19/25 13:15 Plt Count 209 10^3/cmm (157-399) 11/19/25 13:15 MPV 11.0 fL (7.4-10.4) H 11/19/25 13:15 Neut % (Auto) 78.1 % 11/19/25 13:15 Lymph % (Auto) 14.5 % 11/19/25 13:15 Edmunds % (Auto) 6.3 % 11/19/25 13:15 Eos % (Auto) 0.4 % 11/19/25 13:15 Baso % (Auto) 0.3 % 11/19/25 13:15 Neut # (Auto) 5.88 10^3/uL (1.8-7.7) 11/19/25 13:15 Lymph # (Auto) 1.1 10^3/uL (0.8-4.8) 11/19/25 13:15 Edmunds # (Auto) 0.5 10^3/uL (0.2-0.9) 11/19/25 13:15 Eos # (Auto) 0.0 10^3/uL (0.0-0.8) 11/19/25 13:15 Baso # (Auto) 0.0 10^3/uL (0.0-0.1) 11/19/25 13:15 Nucleated RBC % (auto) 0 % 11/19/25 13:15 Nucleated RBCs # 0.0 /100WBC 11/19/25 13:15 Sodium 131 mmol/L (136-145) L 11/19/25 13:15 Potassium 4.8 mmol/L (3.5-5.1) 11/19/25 13:15 Chloride 93 mmol/L (98-107) L 11/19/25 13:15 Carbon Dioxide 29 mmol/L (22-29) 11/19/25 13:15 Anion Gap 13.8 (5-19) 11/19/25 13:15 BUN 21 mg/dL (8-23) 11/19/25 13:15 Creatinine 1.2 mg/dL (0.7-1.2) 11/19/25 13:15 GFR Calculation Not Reportable 11/19/25 13:15 Glucose 360 mg/dL (65-115) H 11/19/25 13:15 Calculated Osmolality 290 mOsm/kg (285-295) 11/19/25 13:15 Lactic Acid 0.9 mmol/L (0.5-2.2) 11/19/25 13:15 Calcium 8.6 mg/dL (8.5-10.5) 11/19/25 13:15 Total Bilirubin 0.5 mg/dL (0.15-1.2) 11/19/25 13:15 AST 17 U/L (0-40) 11/19/25 13:15 ALT 15 U/L (0-41) 11/19/25 13:15 Alkaline Phosphatase 95 U/L (40-130) 11/19/25 13:15 Total Protein 6.6 g/dL (6.6-8.7) 11/19/25 13:15 Albumin 3.6 g/dL (3.5-5.2) 11/19/25 13:15 Globulin 3.0 g/dL (1.3-4.6) 11/19/25 13:15 Influenza A (PCR) Negative (Negative) 11/19/25 14:03 Influenza Type B (PCR) Negative (Negative) 11/19/25 14:03 RSV (PCR) Negative (Negative) 11/19/25 14:03 SARS-CoV-2 (PCR) Positive (Negative) A 11/19/25 14:03 All radiology interpretation(s) finalized by discharge EKG Data EKG 1: I personally reviewed and interpreted this EKG as follows: Interpretation: EKG 1223 2025-11-12 sinus rhythm rate of 92 AK interval 133 QTc [address] changes noted compared to EKG 02/19/2025 no significant change Discharge Plan Discharge Patient Disposition: Home Clinical Impression: COVID-19 COPD (chronic obstructive pulmonary disease) Qualifiers: COPD type: emphysema Emphysema type: unspecified Qualified Code(s): J43.9 - Emphysema, unspecified Condition: Stable Prescriptions: New albuterol sulfate 90 mcg/actuation HFA aerosol inhaler 2 inh INHALATION Q4H PRN (Reason: shortness of breath or wheezing) Qty: 18 0RF No Action ergocalciferol (vitamin D2) 50 mcg (2,000 unit) capsule 50 mcg PO DAILY multivitamin Tablet 1 tab PO DAILY Vision Formula (with lutein) 1,000 unit-200 mg-60 unit-2 mg tablet 1 tab PO DAILY Rx Instructions: administer after a meal (DME) Rebreather mask See Rx Instructions .Route .MEDSUPPLY Qty: 1 0RF Rx Instructions: As directed use with oxygen 5 lite Debrox 6.5 % drops 5 drp otic (ear) DAILY Qty: 15 0RF insulin glargine [Basaglar KwikPen U-100 Insulin] 100 unit/mL (3 mL) insulin pen 30 unit SUBCUT QAM Qty: 15 2RF albuterol sulfate [Ventolin HFA] 90 mcg/actuation HFA aerosol inhaler 2 puff INHALATION Q4H PRN (Reason: shortness of breath or wheezing) 30 Days Qty: 6.7 2RF allopurinol 300 mg tablet 300 mg PO QDAY 30 Days Qty: 30 2RF aspirin [Adult Low Dose Aspirin] 81 mg tablet,delayed release (DR/EC) 81 mg PO QDAY 30 Days Qty: 30 2RF atorvastatin 10 mg tablet 10 mg PO DAILY Qty: 30 2RF azithromycin [Zithromax] 500 mg tablet 500 mg PO .COMPLEX Qty: 12 2RF Rx Instructions: 500 mg orally Mon, Tue & Tuesday; clopidogrel [Plavix] 75 mg tablet 75 mg PO QDAY 30 Days Qty: 30 2RF Jardiance 25 mg tablet 25 mg PO QAM Qty: 30 2RF Repatha SureClick 140 mg/mL pen injector 140 mg SUBCUT .every 14 day Qty: 2 2RF Trelegy Ellipta 100-62.5-25 mcg blister with device 1 inh INHALATION QDAY 30 Days Qty: 28 2RF guaifenesin [Mucinex] 600 mg tablet extended release 12hr 600 mg PO BID 30 Days Qty: 60 2RF ipratropium-albuterol 0.5 mg-3 mg(2.5 mg base)/3 mL solution for nebulization 3 ml inhalation QID.RESPIRATORY PRN (Reason: Shortness Of Breath) Qty: 300 2RF Probiotic Digestive Care 20 billion cell capsule See Rx Instructions PO .2 times day Qty: 60 2RF Rx Instructions: 20 billion cell PO .2 times day; levothyroxine [Synthroid] 75 mcg tablet 75 mcg PO QDAY 30 Days Qty: 30 2RF losartan 50 mg tablet 50 mg PO QDAY 30 Days Qty: 30 2RF Rx Instructions: lower dose 1 full tablet metoprolol tartrate 25 mg tablet 25 mg PO BID@0900,2100 30 Days Qty: 60 2RF mirtazapine [Remeron] 30 mg tablet 30 mg PO .at supper time Qty: 30 2RF Rx Instructions: for sleep and eat pantoprazole 40 mg tablet,delayed release (DR/EC) 40 mg PO DAILY Qty: 30 2RF prednisone 10 mg tablet 10 mg PO DAILY Qty: 30 2RF tamsulosin [Flomax] 0.4 mg capsule 0.4 mg PO .2 times day Qty: 60 2RF sucralfate [Carafate] 1 gram tablet 1 g PO BID PRN (Reason: heartburn) Qty: 60 2RF (DME) poc and titration test See Rx Instructions .Route .MEDSUPPLY Qty: 1 0RF Rx Instructions: As directed poc and titration test (DME) pen needle, diabetic 33 gauge x 5/32 needle See Rx Instructions .ROUTE .MEDSUPPLY Qty: 100 5RF Rx Instructions: 1 time day (DME) Disp Neb Kit W/mouthpc T& 7 Tubing See Rx Instructions .Route .MEDSUPPLY Qty: 1 2RF Dose Instruction: USE DIRECTED Rx Instructions: USE DIRECTED cyanocobalamin (vitamin B-12) [Vitamin B-12] 2,500 mcg Tablet, Sublingual 2,500 mcg SUBLINGUAL DAILY latanoprost 0.005 % drops 1 drp ophthalmic (eye) BEDTIME brimonidine 0.2 % drops 1 drp ophthalmic (eye) BID dorzolamide-timolol 22.3-6.8 mg/mL drops 1 drp ophthalmic (eye) BID moxifloxacin 0.5 % drops 1 drp ophthalmic (eye) TID Discharge Orders: Discharge ED (Routine); Ordered 11/19/25 Ordered By: Zi Houston Referrals: Pete Barboza, SEMICONDUCTOR DEVELOPMENT TECHNICIAN-C [Primary Care Provider, Family Practice] Discharge Diet: Usual diet Discharge Activity: Increase activity as tolerated Patient Instructions: COVID-19 (Coronavirus Disease 2019) (ED), Opioid Safety, Pain Management, Patient Portal & Micheal Instructions Activity Restrictions/Additional Instructions: Thank you for choosing [facility] for your healthcare needs today. It is very important that you follow up as instructed or that you return to the Emergency Department should you have concerns or if your condition changes or worsens in any way. Emergency department visits are focused on emergent conditions, in some cases you may require further evaluation on an outpatient basis. You were seen in the emergency room with complaint of shortness of breath and cough. COVID is positive. You are outside the timeframe for any antivirals. Recommend wearing your oxygen regularly. Return to emergency room if have any further problems. (Please note that included in your discharge packet is information concerning opioid safety and pain management. This information is given to all patients were discharged from the ER regardless of their discharge diagnosis or the medicines they usually take or are prescribed.) Print Language: Sinhala Coding Level of Care Code ED Lockstitch Tunnel Elastic Operator for Sheldon Rodriguez
[2025-11-19 13:31] LABS: Hematocrit 36.7 % (37-53); Hemoglobin 10.70 g/dL (11.27-16.99); Mean Corpuscular HGB Conc 29.2 g/dL (30-55); Mean Corpuscular Hemoglobin 25.2 pg (27-33); Mean Corpuscular Volume 86.4 fl (82-101); Nucleated Red Blood Cells % 0 %; Platelet Count 209 10^3/cmm (157-399); Red Blood Count 4.25 10^6/uL (3.85-5.65); White Blood Count 7.52 10^3/uL (3.29-11.43)
[2025-11-19 13:53] LABS: Alanine Aminotransferase 15 U/L (0-41); Albumin Level 3.6 g/dL (3.5-5.2); Alkaline Phosphatase 95 U/L (40-130); Anion Gap 13.8 (5-19); Aspartate Amino Transferase 17 U/L (0-40); Blood Urea Nitrogen 21 mg/dL (8-23); Calcium 8.6 mg/dL (8.5-10.5); Carbon Dioxide 29 mmol/L (22-29); Chloride 93 mmol/L (98-107); Globulin 3.0 g/dL (1.3-4.6); Glucose 360 mg/dL (65-115); Osmolality Calculated 290 mOsm/kg (285-295); Potassium 4.8 mmol/L (3.5-5.1); Sodium 131 mmol/L (136-145); Total Protein 6.6 g/dL (6.6-8.7)
[2025-11-19] MEDS: methylPREDNISolone sod succ 125 mg/2 mL INJ IVP (13:58)
[2025-11-19 14:17] LABS: Lactic Sepsis W/Reflex 0.9 mmol/L (0.5-2.2)
[2025-11-19 14:46] LABS: Respiratory Syncytial Virus Ce NEGATIVE (Negative)
[2025-11-19 15:24] LABS: SARS-CoV-2 PCR Positive (Negative)
== END 2025-11-19 16:28 | disposition home or self-care (01) ==
PROVIDERS: Emergency Provider Family Medicine; PCP Nurse Practitioner
DX: U07.1 COVID-19 (principal); J43.9 Emphysema, unspecified; Z11.52 Encounter for screening for COVID-19; Z79.4 Long term (current) use of insulin; Z79.82 Long term (current) use of aspirin; Z79.02 Long term (current) use of antithrombotics/antiplatelets; Z87.891 Personal history of nicotine dependence; E78.5 Hyperlipidemia, unspecified; I10 Essential (primary) hypertension; E11.9 Type 2 diabetes mellitus without complications
CPT/HCPCS: 36415; 71045; 80053; 83605; 85025; 87040; 87637; 93005; 94640; 96374; 99285; J2919; J9999